=== PATIENT | male | born 1975 | race American Indian/Alaskan Native ===

== ENCOUNTER 2022-02-21 19:57 | Inpatient (IN) | payer MEDICARE ==
[2022-02-22 02:47] LABS: Basophils # (Auto) 0.1 K/mm3 (0.0-0.1); Basophils % (Auto) 0.8 % (0.0-1.8); Eosinophils # (Auto) 0.4 K/mm3 (0.0-0.4); Eosinophils % (Auto) 3.8 % (0.0-4.3); Hematocrit 38.5 % (35.5-45.6); Hemoglobin 12.7 gm/dl (11.8-15.2); Lymphocytes # (Auto) 3.7 K/mm3 (1.2-5.4); Lymphocytes % (Auto) 33.4 % (13.4-35.0); Mean Corpuscular HGB Conc 33 % (32-34); Mean Corpuscular Volume 72 fl (84-94); Monocytes # (Auto) 1.1 K/mm3 (0.0-0.8); Monocytes % (Auto) 10.1 % (0.0-7.3); Platelet Count 232 K/mm3 (140-440); Red Blood Count 5.33 M/mm3 (3.65-5.03); Red Cell Distribution Width 19.9 % (13.2-15.2)
[2022-02-22 03:05] LABS: BUN/Creatinine Ratio 9; Blood Urea Nitrogen 7 mg/dL (9-20); Calcium 8.8 mg/dL (8.4-10.2); Hemolysis Index 13
--- NOTE | 2022-02-22 03:40 | Emergency Department Report ---
ED General Adult HPI - General Chief complaint: Psych Stated complaint: MH Time Seen by Provider: 02/22/22 01:47 Source: patient Mode of arrival: Ambulatory Limitations: No Limitations - History of Present Illness Initial comments: Patient presents with complaints of suicidal thoughts. Denies visual and auditory hallucinations. Patient is legally natalio. Patient has a hx of depression. Denies CP, SOB, palpitations, diaphoresis. - Related Data Allergies Allergy/AdvReac Type Severity Reaction Status Date / Time No Known Allergies Allergy Unverified 02/22/22 01:31 ED Review of Systems ROS: Stated complaint: MH Other details as noted in HPI Comment: All other systems reviewed and negative Constitutional: denies: chills, fever ED Past Medical Hx - Past Medical History Previous Medical History?: Yes Additional medical history: Legally blind - Social History Smoking Status: Current Every Day Smoker Substance Use Type: Alcohol, Cocaine ED Physical Exam - General Limitations: No Limitations General appearance: alert, in no apparent distress - Head Head exam: Present: atraumatic, normocephalic - Eye Eye exam: Present: EOMI. Absent: scleral icterus - ENT ENT exam: Present: mucous membranes moist, other (airway patent) - Neck Neck exam: Present: other (supple; no JVD) - Respiratory Respiratory exam: Present: other (good air entry, nml I:E, CTAB, no use of NADYA) - Cardiovascular Cardiovascular Exam: Present: regular rate. Absent: rubs, gallop - GI/Abdominal GI/Abdominal exam: Present: soft, normal bowel sounds. Absent: distended, tenderness - Extremities Exam Extremities exam: Present: full ROM. Absent: tenderness - Back Exam Back exam: Present: full ROM. Absent: tenderness - Neurological Exam Neurological exam: Present: alert, oriented X3, other (no gross CN palsies other than blindness). Absent: motor sensory deficit - Psychiatric Psychiatric exam: Present: flat affect, suicidal ideation. Absent: homicidal ideation - Skin Skin exam: Present: warm, normal color ED Medical Decision Making - Lab Data Result diagrams: 02/22/22 02:28 02/22/22 02:28 Laboratory Tests 02/22/22 02/22/22 02/22/22 02:28 02:28 02:28 WBC 11.0 RBC 5.33 H Hgb 12.7 Hct 38.5 MCV 72 L MCH 24 L MCHC 33 RDW 19.9 H Plt Count 232 Lymph % (Auto) 33.4 [place] % (Auto) 10.1 H Eos % (Auto) 3.8 Baso % (Auto) 0.8 Lymph # (Auto) 3.7 [place] # (Auto) 1.1 H Eos # (Auto) 0.4 Baso # (Auto) 0.1 Seg Neutrophils % 51.9 Seg Neutrophils # 5.7 Sodium 138 Potassium 3.3 L Chloride 98.0 Carbon Dioxide 21 L Anion Gap 22 BUN 7 L Creatinine 0.8 Estimated GFR > 60 BUN/Creatinine Ratio 9 Glucose 94 Calcium 8.8 Salicylates < 0.3 L Acetaminophen Plasma/Serum Alcohol 02/22/22 02/22/22 02:28 02:28 WBC RBC Hgb Hct MCV MCH MCHC RDW Plt Count Lymph % (Auto) [place] % (Auto) Eos % (Auto) Baso % (Auto) Lymph # (Auto) [place] # (Auto) Eos # (Auto) Baso # (Auto) Seg Neutrophils % Seg Neutrophils # Sodium Potassium Chloride Carbon Dioxide Anion Gap BUN Creatinine Estimated GFR BUN/Creatinine Ratio Glucose Calcium Salicylates Acetaminophen 5.0 L Plasma/Serum Alcohol 0.13 H LFTs, UA and U tox pending - Medical Decision Making 1013 signed. MH consulted. Critical care attestation.: If time is entered above; I have spent that time in minutes in the direct care of this critically ill patient, excluding procedure time. ED Disposition Clinical Impression: Suicidal thoughts Disposition: 30 STILL A PATIENT Is pt being admited?: No Does the pt Need Aspirin: No Condition: Stable Time of Disposition: 06:00 (Patient care transferred to Dr. Cortés (oncoming ER doc). Sign out was given by me to him. )
[2022-02-22 05:02] LABS: Alanine Aminotransferase 28 units/L (7-56); Albumin 4.4 g/dL (3.9-5)
[2022-02-22 05:13] LABS: Bilirubin,Direct < 0.2 mg/dL (0-0.2)
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
--- NOTE | 2022-02-22 11:56 | Event Note ---
Date: 02/22/22 Treatment Plan 1013 Olanzapine 5mg po BID Trazodone 50mg po QHs Sitter: Defer to primary Medical: Per primary Disposition: Recommend acute psychiatric inpatient treatment Will follow. Thank you for this consult. Case staffed with Dr. Tavera I have seen the patient myself and patient remains hemodynamically stable and afebrile. Came in with concern of suicidal ideation and auditory hallucination with commands telling him to kill himself. Appreciate psych evaluation's recommendation. - [place]
[2022-02-22] MEDS: traZODone 50 MG TAB PO SCH (22:26)
--- NOTE | 2022-02-23 10:07 | Progress Note ---
Subjective - Reason for Consult Consult date: 02/23/22 Reason for consult: suicidal ideation - Chief Complaint Chief complaint: The patient was seen this morning. He continues to endorse depression and suicidal ideation with no plan. The patient continues to have auditory hallucinations with voices telling him to kill himself. REVIEW OF SYSTEMS Constitutional: Negative for weight loss ENT: Negative for stridor Respiratory: Negative for cough or hemoptysis All other systems reviewed and are negative MENTAL STATUS EXAMINATION General Appearance: Dressed appropriately, Behavior: calm and cooperative, odd Mood: depressed Affect and affective range: congruent with mood Thought Process: Goal directed Thought content:Suicidal Speech: Normal Suicidal Ideation: Yes Homicidal Ideation: Denies Hallucinations: Auditory Delusions:None Insight and Judgment:Limited insight and judgment Memory: Limited Attention: Distracted Orientation: Alert, oriented Assessment Schizophrenia Treatment Plan 1013 Olanzapine 5mg po BID Start Sertraline 25mg po Daily Trazodone 50mg po QHs Sitter: Defer to primary Medical: Per primary Disposition: Recommend acute psychiatric inpatient treatment Will follow. Thank you for this consult. Case staffed with Dr. Tavera Medications and Allergies Mental Status Exam - Vital signs Last Vital Signs Temp 98.0 F 02/22/22 19:50 Pulse 73 02/22/22 19:50 Resp 16 02/22/22 19:50 BP 174/112 02/22/22 19:50 Pulse Ox 94 02/22/22 19:50
--- NOTE | 2022-02-23 11:42 | Emergency Department Report ---
Blank Doc - Documentation Documentation: S: No events reported overnight O: Vital Signs - 24 hr 02/22/22 02/22/22 02/23/22 19:30 19:50 04:00 Temperature 98.0 F 98.7 F Pulse Rate 73 82 Respiratory 16 18 Rate Blood Pressure 174/112 146/87 [Left] O2 Sat by Pulse 100 94 100 Oximetry 02/23/22 09:30 Temperature 97.5 F L Pulse Rate 78 Respiratory 18 Rate Blood Pressure 139/86 [Left] O2 Sat by Pulse 99 Oximetry A: Schizophrenia P: 1013/awaiting inpatient psych
[2022-02-23] MEDS: SERTRALINE 25 MG TAB PO SCH (13:14)
[2022-02-23 16:17] LABS: Bilirubin,Urine NEG (Negative); Blood,Urine MOD (Negative); Color,Urine Yellow (Yellow)
[2022-02-23 16:18] LABS: Amphetamine Screen,Urine Negative; Benzodiazepines Screen,Urine Negative; Methadone Screen,Urine Negative; Opiate Screen,Urine Negative
[2022-02-23 16:29] LABS: Cannabinoid Screen,Urine Positive; Cocaine Screen,Urine Positive
[2022-02-23] MEDS ORDERED: ALBUTEROL 2.5 MG/3 ML NEBU IH ONE ×2 (17:06→19:31)
[2022-02-23] MEDS ORDERED: IPRATROPIUM 0.02% NEBU 2.5 ML IH ONE ×2 (17:06→19:31)
[2022-02-23] MEDS ORDERED: predniSONE 20 MG TAB PO ONE (17:06)
[2022-02-23] MEDS ORDERED: ALBUTEROL 2.5 MG/3 ML NEBU IH PRN ×2 (17:09→21:32)
[2022-02-23] MEDS ORDERED: IPRATROPIUM 0.02% NEBU 2.5 ML IH PRN (17:09)
[2022-02-23] MEDS: amLODIPine 5 MG TAB PO SCH (19:31)
[2022-02-23] MEDS ORDERED: NITROGLYCERIN 2% OINT 1 GM TP ONE (19:32)
[2022-02-23] MEDS ORDERED: ASPIRIN 325 MG TAB PO ONE (19:32)
[2022-02-23] MEDS ORDERED: ONDANSETRON 4 MG/2 ML INJ IV ONE (19:32)
[2022-02-23] MEDS ORDERED: fentaNYL 100 MCG/2 ML INJ IV ONE (19:32)
[2022-02-23] MEDS ORDERED: MAGNESIUM SULFATE 2 GM/50 ML BAG IV ONE (19:46)
--- NOTE | 2022-02-23 20:27 | XRay Report ---
CHEST 1 VIEW INDICATION / CLINICAL INFORMATION: chest pain, shortness of breath. COMPARISON: None available. FINDINGS: SUPPORT DEVICES: None. HEART / MEDIASTINUM: No significant abnormality. LUNGS / PLEURA: Mild prominence of interstitial markings bilaterally. The appearance could be indicat paty of chronic interstitial lung disease or mild interstitial pulmonary edema. Unfortunately there ar e no prior chest radiographs for comparison. No focal area of consolidation to suggest pneumonia. No pleural effusion. No pneumothorax. ADDITIONAL FINDINGS: No significant additional findings. IMPRESSION: 1. Mild interstitial prominence bilaterally. Differential diagnosis includes mild interstitial pulmon miky edema versus mild chronic interstitial lung disease. Signer Name: Shanice Valdez MD Signed: 02/23/2022 8:22 PM Workstation Name: [id number]
[2022-02-23 21:02] LABS: Creatine Kinase MB 1.3 ng/mL (0.0-4.0)
[2022-02-23] MEDS ORDERED: ONDANSETRON 4 MG/2 ML INJ IV PRN (21:32)
[2022-02-23] MEDS ORDERED: NITROGLYCERIN 0.4 MG TAB SUBL SL PRN (21:32)
[2022-02-23] MEDS ORDERED: ACETAMINOPHEN 325 MG TAB PO PRN ×2 (21:32)
--- NOTE | 2022-02-23 21:40 | History and Physical Report ---
History of Present Illness Date of examination: 02/23/22 Date of admission: 02/23/22 Chief complaint: Suicidal ideation Chest pain Shortness of breath History of present illness: 46 year old male with history of COPD, asthma, schizophrenia who presents to the ED with suicidal ideation. The patient is calm, alert and oriented x3. He reports having suicidal ideation " I am tired and I want to , I lost everything." The patient also admits having commanding auditory hallucinations " voices saying kill yourself." Patient is seen and evaluated by psych in the [facility] room. Patient wheezing in all scott SPO2 100% on room air. Nebulizer ordered (albuterol 10 mg/Atrovent 1 mg) in addition to prednisone 60 mg p.o. Patient began to complain of substernal chest pain in addition to shortness of breath. Wheezing recalcitrant to initial neb. Second neb ordered EKG shows normal sinus rhythm with T wave inversion in lead aVL. Cardiac enzymes ordered and patient admitted to the hospitalist for observation. Past History Past Medical History: COPD, other (Schizophrenia, asthma) Medications and Allergies Allergies Allergy/AdvReac Type Severity Reaction Status Date / Time No Known Allergies Allergy Unverified 02/22/22 01:31 Home Medications Medication Instructions Recorded Confirmed Last Taken Type Amlodipine Besylate [Norvasc] 10 mg PO DAILY 02/23/22 02/23/22 Unknown History Active Meds: Active Medications Albuterol (Albuterol 2.5 Mg/3 Ml Nebu) 5 mg IH Q4H PRN PRN Reason: Wheezing Amlodipine Besylate (Amlodipine 5 Mg Tab) 10 mg PO DAILY [facility] Last Admin: 02/23/22 19:31 Dose: 10 mg Ipratropium [place] (Ipratropium 0.02% Nebu 2.5 Ml) 0.5 mg IH Q4H PRN PRN Reason: Wheezing Olanzapine (Olanzapine 5 Mg Tab) 5 mg PO BID [facility] Last Admin: 02/23/22 10:36 Dose: 5 mg Sertraline HCl (Sertraline 25 Mg Tab) 25 mg PO DAILY [facility] Last Admin: 02/23/22 13:14 Dose: 25 mg Trazodone HCl (Trazodone 50 Mg Tab) 50 mg PO QHS [facility] Last Admin: 02/22/22 22:26 Dose: 50 mg Review of Systems All systems: negative Constitutional: other (Suicidal ideation) Respiratory: shortness of breath, dyspnea on exertion, wheezing Exam - Constitutional Vitals: Temp Pulse Resp BP Pulse Ox 97.5 F L 95 H 19 167/100 99 02/23/22 09:30 02/23/22 19:51 02/23/22 19:51 02/23/22 19:31 02/23/22 19:27 General appearance: Present: no acute distress, well-nourished - EENT Eyes: Present: PERRL ENT: hearing intact, clear oral mucosa - Neck Neck: Present: supple, normal ROM - Respiratory Respiratory effort: normal Respiratory: bilateral: wheezing - Cardiovascular Heart Sounds: Present: S1 & S2. Absent: rub, click - Extremities Extremities: pulses symmetrical, No edema Peripheral Pulses: within normal limits - Abdominal General gastrointestinal: Present: soft, non-tender, non-distended, normal bowel sounds Male genitourinary: Present: normal - Integumentary Integumentary: Present: clear, warm, dry - Musculoskeletal Musculoskeletal: gait normal, strength equal bilaterally - Psychiatric Psychiatric: appropriate mood/affect, intact judgment & insight - Neurologic Neurologic: CNII-XII intact, moves all extremities HEART Score - HEART Score Troponin: Troponin T < 0.010 ng/mL (0.00-0.029) 02/23/22 20:26 Results - Labs CBC & Chem 7: 02/22/22 02:28 02/22/22 02:28 Labs: Laboratory Last Values WBC 11.0 K/mm3 (4.5-11.0) 02/22/22 02:28 RBC 5.33 M/mm3 (3.65-5.03) H 02/22/22 02:28 Hgb 12.7 gm/dl (11.8-15.2) 02/22/22 02:28 Hct 38.5 % (35.5-45.6) 02/22/22 02:28 MCV 72 fl (84-94) L 02/22/22 02:28 MCH 24 pg (28-32) L 02/22/22 02:28 MCHC 33 % (32-34) 02/22/22 02:28 RDW 19.9 % (13.2-15.2) H 02/22/22 02:28 Plt Count 232 K/mm3 (140-440) 02/22/22 02:28 Lymph % (Auto) 33.4 % (13.4-35.0) 02/22/22 02:28 [place] % (Auto) 10.1 % (0.0-7.3) H 02/22/22 02:28 Eos % (Auto) 3.8 % (0.0-4.3) 02/22/22 02:28 Baso % (Auto) 0.8 % (0.0-1.8) 02/22/22 02:28 Lymph # (Auto) 3.7 K/mm3 (1.2-5.4) 02/22/22 02:28 [place] # (Auto) 1.1 K/mm3 (0.0-0.8) H 02/22/22 02:28 Eos # (Auto) 0.4 K/mm3 (0.0-0.4) 02/22/22 02:28 Baso # (Auto) 0.1 K/mm3 (0.0-0.1) 02/22/22 02:28 Seg Neutrophils % 51.9 % (40.0-70.0) 02/22/22 02:28 Seg Neutrophils # 5.7 K/mm3 (1.8-7.7) 02/22/22 02:28 Sodium 138 mmol/L (137-145) 02/22/22 02:28 Potassium 3.3 mmol/L (3.6-5.0) L 02/22/22 02:28 Chloride 98.0 mmol/L (98-107) 02/22/22 02:28 Carbon Dioxide 21 mmol/L (22-30) L 02/22/22 02:28 Anion Gap 22 mmol/L 02/22/22 02:28 BUN 7 mg/dL (9-20) L 02/22/22 02:28 Creatinine 0.8 mg/dL (0.8-1.3) 02/22/22 02:28 Estimated GFR > 60 ml/min 02/22/22 02:28 BUN/Creatinine Ratio 9 % 02/22/22 02:28 Glucose 94 mg/dL (75-100) 02/22/22 02:28 Calcium 8.8 mg/dL (8.4-10.2) 02/22/22 02:28 Total Bilirubin 0.30 mg/dL (0.1-1.2) 02/22/22 04:26 Direct Bilirubin < 0.2 mg/dL (0-0.2) 02/22/22 04:26 Indirect Bilirubin 0.1 mg/dL 02/22/22 04:26 AST 29 units/L (5-40) 02/22/22 04:26 ALT 28 units/L (7-56) 02/22/22 04:26 Alkaline Phosphatase 87 units/L (35-129) 02/22/22 04:26 Total Creatine Kinase 179 units/L (55-170) H 02/23/22 20:26 CK-MB (CK-2) 1.3 ng/mL (0.0-4.0) 02/23/22 20: CK-MB (CK-2) Rel Index 0.7 (0-4) 02/23/22 20: Troponin T < 0.010 ng/mL (0.00-0.029) 02/23/22 20:26 NT-Pro-B Natriuret Pep 163.6 pg/mL (0-450) 02/23/22 20:26 Total Protein 6.7 g/dL (6.3-8.2) 02/22/22 04:26 Albumin 4.4 g/dL (3.9-5) 02/22/22 04:26 Albumin/Globulin Ratio 1.9 % 02/22/22 04:26 Urine Color Yellow (Yellow) 02/23/22 Unknown Urine Turbidity Clear (Clear) 02/23/22 Unknown Urine pH 7.0 (5.0-7.0) 02/23/22 Unknown Ur Specific [place] 1.015 (1.003-1.030) 02/23/22 Unknown Urine Protein 100 mg/dl mg/dL (Negative) 02/23/22 Unknown Urine Glucose (UA) Neg mg/dL (Negative) 02/23/22 Unknown Urine Ketones 80 mg/dL (Negative) 02/23/22 Unknown Urine Blood Mod (Negative) 02/23/22 Unknown Urine Nitrite Neg (Negative) 02/23/22 Unknown Urine Bilirubin Neg (Negative) 02/23/22 Unknown Urine Urobilinogen 4.0 mg/dL (<2.0) 02/23/22 Unknown Ur Leukocyte Esterase Neg (Negative) 02/23/22 Unknown Urine WBC (Auto) 1.0 /HPF (0.0-6.0) 02/23/22 Unknown Urine RBC (Auto) 16.0 /HPF (0.0-6.0) 02/23/22 Unknown U Epithel Cells (Auto) < 1.0 /HPF (0-13.0) 02/23/22 Unknown Salicylates < 0.3 mg/dL (2.8-20.0) L 02/22/22 02:28 Urine Opiates Screen Negative 02/23/22 Unknown Urine Methadone Screen Negative 02/23/22 Unknown Acetaminophen 5.0 ug/mL (10.0-30.0) L 02/22/22 02:28 Ur Barbiturates Screen Negative 02/23/22 Unknown Ur Phencyclidine Scrn Negative 02/23/22 Unknown Ur Amphetamines Screen Negative 02/23/22 Unknown U Benzodiazepines Scrn Negative 02/23/22 Unknown Urine Cocaine Screen Positive 02/23/22 Unknown U Marijuana (THC) Screen Positive 02/23/22 Unknown Drugs of Abuse Note Disclamer 02/23/22 Unknown Plasma/Serum Alcohol 0.13 % (0-0.07) H 02/22/22 02:28 - Imaging and Cardiology Chest x-ray: report reviewed Assessment and Plan VTE prophylaxis?: Chemical Plan of care discussed with patient/family: Yes - Patient Problems (1) ACS (acute coronary syndrome) Current Visit: Yes Status: Acute Plan to address problem: Admit the patient to the medical telemetry. Aspirin 325 mg p.o. daily. Lipitor 40 mg p.o. daily. Sublingual nitroglycerin as needed. We do the serial cardiac enzymes. We also do a Lexiscan. Consult cardiology if needed (2) COPD with exacerbation Current Visit: Yes Status: Acute Plan to address problem: Oxygen by nasal cannula 3 L/min. DuoNeb by nebulizer every 4 hours. Albuterol via nebulizer every 4 hours as needed. Patient already get prednisone. (3) Schizophrenia Current Visit: Yes Status: Acute Plan to address problem: Patient already seen and evaluated by psych. Will consult inpatient psych to see the patient (4) Marijuana abuse Current Visit: Yes Status: Acute Plan to address problem: Patient counseled regarding quit taking marijuana. (5) Suicidal thoughts Current Visit: Yes Status: Acute Plan to address problem: Patient already seen and evaluated by psych in the emergency room. We also consult inpatient psych for evaluation (6) DVT prophylaxis Current Visit: Yes Status: Acute Plan to address problem: Heparin 5000 units subcu every 12 hours for DVT prophylaxis Pepcid 20 mg p.o. twice daily for GI prophylaxis. Patient is a full code
[2022-02-23 22:26] LABS: Hematocrit 38.6 % (35.5-45.6); Hemoglobin 12.5 gm/dl (11.8-15.2); Mean Corpuscular HGB Conc 32 % (32-34); Mean Corpuscular Volume 72 fl (84-94); Red Blood Count 5.33 M/mm3 (3.65-5.03); Red Cell Distribution Width 19.9 % (13.2-15.2)
[2022-02-23 22:27] LABS: Blood Urea Nitrogen 6 mg/dL (9-20); Hemolysis Index 112
[2022-02-23 22:28] LABS: BUN/Creatinine Ratio 9; Platelet Count 211 K/mm3 (140-440)
[2022-02-23 23:39] LABS: Anisocytosis Few; Basophils % (Manual) 0 % (0.0-1.8); Eosinophils % (Manual) 0 % (0.0-4.3); Hypochromasia 1+; Total Cells Counted 100
[2022-02-24] MEDS: traZODone 50 MG TAB PO SCH
[2022-02-24] MEDS: IPRATROPIUM/ALBUTEROL SULFATE 3 ML AMPUL.NEB IH SCH ×4 (04:25→20:40)
[2022-02-24 06:19] LABS: Basophils % (Auto) 0.5 % (0.0-1.8); Eosinophils % (Auto) 0.1 % (0.0-4.3); Hematocrit 38.2 % (35.5-45.6); Hemoglobin 12.6 gm/dl (11.8-15.2); Lymphocytes % (Auto) 16.2 % (13.4-35.0); Mean Corpuscular HGB Conc 33 % (32-34); Mean Corpuscular Volume 72 fl (84-94); Monocytes # (Auto) 0.7 K/mm3 (0.0-0.8); Monocytes % (Auto) 11.2 % (0.0-7.3); Platelet Count 218 K/mm3 (140-440); Red Blood Count 5.32 M/mm3 (3.65-5.03); Red Cell Distribution Width 19.5 % (13.2-15.2)
[2022-02-24 06:42] LABS: BUN/Creatinine Ratio 8; Blood Urea Nitrogen 5 mg/dL (9-20); Calcium 9.1 mg/dL (8.4-10.2); Hemolysis Index 3
[2022-02-24] MEDS ORDERED: REGADENOSON 0.4 MG/5 ML INJ IV ONE (07:00)
[2022-02-24] MEDS ORDERED: BUDESONIDE 0.5 MG/2 ML NEBU IH SCH (09:00)
[2022-02-24] MEDS: ASPIRIN EC 325 MG TAB PO SCH (10:22)
[2022-02-24] MEDS: SERTRALINE 25 MG TAB PO SCH (10:23)
[2022-02-24] MEDS: FAMOTIDINE 20 MG TAB PO SCH ×3 (10:23→21:38)
[2022-02-24] MEDS: traMADol 50 MG TAB PO PRN (10:23)
[2022-02-24] MEDS: amLODIPine 5 MG TAB PO SCH (10:23)
[2022-02-24] MEDS: HEPARIN 5,000 UNIT/1 ML VIAL SUB-Q SCH ×3 (10:27→21:39)
--- NOTE | 2022-02-24 12:02 | Progress Note ---
Subjective - Reason for Consult Consult date: 02/24/22 Reason for consult: suicidal - Chief Complaint Chief complaint: The patient was seen today. He reports not doing well. He continues to endorse suicidal ideation with no plan and also having commanding auditory hallucinations " voices telling me to kill myself." REVIEW OF SYSTEMS Constitutional: Negative for weight loss ENT: Negative for stridor Respiratory: Negative for cough or hemoptysis All other systems reviewed and are negative MENTAL STATUS EXAMINATION General Appearance: Dressed appropriately, Behavior: calm and cooperative, odd Mood: depressed Affect and affective range: congruent with mood Thought Process: Goal directed Thought content:Suicidal Speech: Normal Suicidal Ideation: Yes Homicidal Ideation: Denies Hallucinations: Auditory Delusions:None Insight and Judgment:Limited insight and judgment Memory: Limited Attention: Distracted Orientation: Alert, oriented Assessment Schizophrenia Treatment Plan 1013 Start Seroquel 100mg po QHS Discontinue Olanzapine 5mg po BID Continue Sertraline 25mg po Daily Trazodone 50mg po QHS PRN Sitter: Defer to primary Medical: Per primary Disposition: Recommend acute psychiatric inpatient treatment Will follow for medication management. Thank you for this consult. Case staffed with Dr. Tavera Medications and Allergies Mental Status Exam - Vital signs Last Vital Signs Temp 97.7 F 02/24/22 03:26 Pulse 72 02/24/22 09:04 Resp 20 02/24/22 09:04 BP 166/99 02/24/22 03:26 Pulse Ox 98 02/24/22 09:49
[2022-02-24] MEDS: MORPHINE 2 MG/1 ML INJ IV PRN ×2 (12:20→15:53)
--- NOTE | 2022-02-24 12:29 | Electrocardiograph Report ---
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
--- NOTE | 2022-02-24 12:42 | Electrocardiograph Report ---
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 Electronically Signed On 02-24-2022 12:42:23 EDT by Marcello Daniel
[2022-02-24] MEDS ORDERED: IPRATROPIUM/ALBUTEROL SULFATE 3 ML AMPUL.NEB IH PRN (15:14)
--- NOTE | 2022-02-24 15:36 | Progress Note ---
Assessment and Plan - Patient Problems (1) COPD with exacerbation Current Visit: Yes Status: Acute Plan to address problem: Patient initiated on IV Solu-Medrol, DuoNeb and IV antibiotics BiPAP as necessary Intubation if necessary (2) Schizophrenia Current Visit: Yes Status: Chronic Qualifiers: Schizophrenia type: unspecified Qualified Code(s): F20.9 - Schizophrenia, unspecified Plan to address problem: Continue antipsychotics as per mental health/psychiatry (3) Suicidal thoughts Current Visit: Yes Status: Acute Plan to address problem: Not active at present (4) Marijuana abuse Current Visit: Yes Status: Chronic Plan to address problem: Patient counseled about marijuana use and its disadvantages (5) DVT prophylaxis Current Visit: Yes Status: Acute Plan to address problem: On anticoagulation GI prophylaxis (6) Advance care planning Current Visit: Yes Status: Acute Plan to address problem: Disease education conducted, care plan discussed, diagnosis discussed, prognosis discussed. Patient acknowledges understanding and agrees with care plan. +30 minutes. Subjective Date of service: 02/24/22 Principal diagnosis: COPD exacerbation, atypical chest pain Interval history: 46 year old male with history of COPD, asthma, schizophrenia who presents to the ED with suicidal ideation. The patient is calm, alert and oriented x3. He reports having suicidal ideation " I am tired and I want to , I lost everything." The patient also admits having commanding auditory hallucinations " voices saying kill yourself." Patient is seen and evaluated by psych in the emergency room. Patient wheezing in all scott SPO2 100% on room air. Nebulizer ordered (albuterol 10 mg/Atrovent 1 mg) in addition to prednisone 60 mg p.o. Patient began to complain of substernal chest pain in addition to shortness of breath. Wheezing recalcitrant to initial neb. Second neb ordered EKG shows normal sinus rhythm with T wave inversion in lead aVL. Cardiac enzymes ordered and patient admitted to the hospitalist for observation. 02/24/2022 Patient extremely short of breath and wheezing Using accessory muscles of respiration Patient initiated on duo nebs, IV Solu-Medrol and IV antibiotics Objective - Constitutional Vitals: Vital Signs - 12hr 02/24/22 02/24/22 02/24/22 04:00 08:37 08:41 Temperature Pulse Rate Pulse Rate [ 66 Bilateral] Respiratory 18 Rate Respiratory 20 Rate [Bilateral ] Blood Pressure O2 Sat by Pulse 95 99 Oximetry 02/24/22 02/24/22 02/24/22 09:04 09:49 10:48 Temperature 98.0 F Pulse Rate 71 Pulse Rate [ 72 Bilateral] Respiratory 18 Rate Respiratory 20 Rate [Bilateral ] Blood Pressure 140/72 O2 Sat by Pulse 98 96 Oximetry 02/24/22 14:21 Temperature Pulse Rate Pulse Rate [ 80 Bilateral] Respiratory Rate Respiratory 20 Rate [Bilateral ] Blood Pressure O2 Sat by Pulse Oximetry General appearance: Present: mild distress, well-nourished - EENT Eyes: PERRL, EOM intact ENT: hearing intact, clear oral mucosa Ears: bilateral: normal - Neck Neck: supple, normal ROM - Respiratory Respiratory effort: normal Respiratory: bilateral: CTA, rhonchi, wheezing - Breasts Breasts: normal - Cardiovascular Heart rate: 78 Rhythm: regular Heart Sounds: Present: S1 & S2. Absent: gallop, rub Extremities: pulses intact, No edema, normal color, Full ROM - Gastrointestinal General gastrointestinal: Present: soft, non-tender, non-distended, normal bowel sounds Rectal Exam: deferred - Genitourinary Male genitourinary: normal - Integumentary Integumentary: clear, warm, dry - Musculoskeletal Musculoskeletal: 1, strength equal bilaterally - Neurologic Neurologic: moves all extremities - Psychiatric Psychiatric: memory intact, appropriate mood/affect, intact judgment & insight - Labs CBC & Chem 7: 02/24/22 05:58 02/24/22 05:58 Labs: Abnormal lab results 02/23/22 02/23/22 02/23/22 Range/Units 20:26 21:43 21:43 WBC 11.5 H (4.5-11.0) K/mm3 RBC 5.33 H (3.65-5.03) M/mm3 MCV 72 L (84-94) fl MCH 24 L (28-32) pg RDW 19.9 H (13.2-15.2) % Mccracken % (Auto) (0.0-7.3) % Lymph # (Auto) (1.2-5.4) K/mm3 Seg Neutrophils % (40.0-70.0) % Seg Neuts % (Manual) 88.0 H (40.0-70.0) % Lymphocytes % (Manual) 8.0 L (13.4-35.0) % Seg Neutrophils # Man 10.1 H (1.8-7.7) K/mm3 Lymphocytes # (Manual) 0.9 L (1.2-5.4) K/mm3 Carbon Dioxide 21 L (22-30) mmol/L BUN 6 L (9-20) mg/dL Creatinine 0.7 L (0.8-1.3) mg/dL Glucose 171 H (75-100) mg/dL Total Creatine Kinase 179 H (55-170) units/L 02/24/22 02/24/22 Range/Units 05:58 05:58 WBC (4.5-11.0) K/mm3 RBC 5.32 H (3.65-5.03) M/mm3 MCV 72 L (84-94) fl MCH 24 L (28-32) pg RDW 19.5 H (13.2-15.2) % Mccracken % (Auto) 11.2 H (0.0-7.3) % Lymph # (Auto) 1.0 L (1.2-5.4) K/mm3 Seg Neutrophils % 72.0 H (40.0-70.0) % Seg Neuts % (Manual) (40.0-70.0) % Lymphocytes % (Manual) (13.4-35.0) % Seg Neutrophils # Man (1.8-7.7) K/mm3 Lymphocytes # (Manual) (1.2-5.4) K/mm3 Carbon Dioxide (22-30) mmol/L BUN 5 L (9-20) mg/dL Creatinine 0.6 L (0.8-1.3) mg/dL Glucose 166 H (75-100) mg/dL Total Creatine Kinase (55-170) units/L HEART Score - HEART Score Troponin: Troponin T < 0.010 ng/mL (0.00-0.029) 02/23/22 20:26
[2022-02-24] MEDS: methylPREDNISolone Sod Succinate 125 MG/2 ML INJ IV SCH ×2 (15:53→21:36)
[2022-02-24] MEDS ORDERED: IPRATROPIUM/ALBUTEROL SULFATE 3 ML AMPUL.NEB IH SCH (16:00)
[2022-02-24] MEDS ORDERED: ALBUTEROL 2.5 MG/3 ML NEBU IH PRN (16:19)
[2022-02-24 17:55] LABS: Creatine Kinase MB 1.6 ng/mL (0.0-4.0)
[2022-02-24] MEDS: BUDESONIDE 0.5 MG/2 ML NEBU IH SCH (20:40)
[2022-02-24] MEDS: ARFORMOTEROL 15 MCG/2 ML NEBU IH SCH (20:40)
[2022-02-24] MEDS ORDERED: traZODone 50 MG TAB PO PRN (21:00)
[2022-02-24] MEDS ORDERED: MORPHINE 4 MG/1 ML INJ IV ONE (21:30)
[2022-02-24] MEDS: QUEtiapine 100 MG TAB PO SCH (22:48)
[2022-02-24] MEDS ORDERED: methylPREDNISolone Sod Succinate 125 MG/2 ML INJ IV SCH (23:08)
[2022-02-25] MEDS: IPRATROPIUM/ALBUTEROL SULFATE 3 ML AMPUL.NEB IH SCH ×6 (00:15→19:44)
[2022-02-25 01:01] LABS: Creatine Kinase MB 1.6 ng/mL (0.0-4.0)
[2022-02-25] MEDS: HYDROmorphone 1 MG/1 ML INJ IV PRN (03:06)
[2022-02-25] MEDS: methylPREDNISolone Sod Succinate 125 MG/2 ML INJ IV SCH ×3 (05:54→21:23)
[2022-02-25 06:14] LABS: Creatine Kinase MB 1.4 ng/mL (0.0-4.0)
[2022-02-25] MEDS: ARFORMOTEROL 15 MCG/2 ML NEBU IH SCH ×2 (08:28→19:44)
[2022-02-25] MEDS: BUDESONIDE 0.5 MG/2 ML NEBU IH SCH ×2 (08:29→19:45)
[2022-02-25] MEDS: MORPHINE 2 MG/1 ML INJ IV PRN ×4 (08:43→20:47)
[2022-02-25] MEDS: SERTRALINE 25 MG TAB PO SCH (10:00)
[2022-02-25] MEDS: amLODIPine 5 MG TAB PO SCH (10:00)
[2022-02-25] MEDS: FAMOTIDINE 20 MG TAB PO SCH ×2 (10:00→21:23)
[2022-02-25] MEDS: ASPIRIN EC 325 MG TAB PO SCH (10:00)
[2022-02-25] MEDS: HEPARIN 5,000 UNIT/1 ML VIAL SUB-Q SCH ×2 (10:03→21:23)
[2022-02-25] MEDS: traMADol 50 MG TAB PO PRN (11:28)
[2022-02-25] MEDS ORDERED: hydrALAZINE 20 MG/1 ML INJ IV PRN (12:16)
[2022-02-25] MEDS: VALSARTAN 160MG TAB PO SCH ×2 (12:26→21:22)
[2022-02-25] MEDS: guaiFENesin 100 MG/5 ML ORAL LIQD PO PRN (12:30)
[2022-02-25] MEDS: hydrALAZINE 20 MG/1 ML INJ IV PRN (13:50)
[2022-02-25] MEDS ORDERED: hydrALAZINE 20 MG/1 ML INJ IV SCH (14:00)
--- NOTE | 2022-02-25 14:11 | Progress Note ---
Assessment and Plan - Patient Problems (1) COPD with exacerbation Current Visit: Yes Status: Acute Plan to address problem: Patient initiated on IV Solu-Medrol, DuoNeb and IV antibiotics BiPAP as necessary Intubation if necessary (2) Chest pain, atypical Current Visit: Yes Status: Acute Plan to address problem: Musculoskeletal Troponins and CK MB enzymes are negative Lexiscan not to be done Follow-up with PCP as outpatient and cardiology follow-up if necessary (3) Schizophrenia Current Visit: Yes Status: Chronic Qualifiers: Schizophrenia type: unspecified Qualified Code(s): F20.9 - Schizophrenia, unspecified Plan to address problem: Continue antipsychotics as per mental health/psychiatry (4) Suicidal thoughts Current Visit: Yes Status: Acute Plan to address problem: Not active at present (5) Marijuana abuse Current Visit: Yes Status: Chronic Plan to address problem: Patient counseled about marijuana use and its disadvantages (6) DVT prophylaxis Current Visit: Yes Status: Acute Plan to address problem: On anticoagulation GI prophylaxis (7) Advance care planning Current Visit: Yes Status: Acute Plan to address problem: Disease education conducted, care plan discussed, diagnosis discussed, prognosis discussed. Patient acknowledges understanding and agrees with care plan. +30 minutes. Subjective Date of service: 02/25/22 Principal diagnosis: COPD exacerbation, atypical chest pain Interval history: 46 year old male with history of COPD, asthma, schizophrenia who presents to the ED with suicidal ideation. The patient is calm, alert and oriented x3. He reports having suicidal ideation " I am tired and I want to , I lost everything." The patient also admits having commanding auditory hallucinations " voices saying kill yourself." Patient is seen and evaluated by psych in the emergency room. Patient wheezing in all scott SPO2 100% on room air. Nebulizer ordered (albuterol 10 mg/Atrovent 1 mg) in addition to prednisone 60 mg p.o. Patient began to complain of substernal chest pain in addition to shortness of breath. Wheezing recalcitrant to initial neb. Second neb ordered EKG shows normal sinus rhythm with T wave inversion in lead aVL. Cardiac enzymes ordered and patient admitted to the hospitalist for observation. 02/24/2022 Patient extremely short of breath and wheezing Using accessory muscles of respiration Patient initiated on duo nebs, IV Solu-Medrol and IV antibiotics 02/25/2022 Shortness of breath and wheezing is improved No chest pain No suicidal thoughts Mental health follow-up appreciated Objective - Constitutional Vitals: Vital Signs - 12hr 02/25/22 02/25/22 02/25/22 03:06 03:36 04:05 Temperature Pulse Rate Pulse Rate [ 82 Bilateral] Respiratory 19 19 Rate Respiratory 20 Rate [Bilateral ] Blood Pressure O2 Sat by Pulse Oximetry 02/25/22 02/25/22 02/25/22 04:52 08:28 08:37 Temperature 97.6 F Pulse Rate 68 Pulse Rate [ 82 Bilateral] Respiratory 20 Rate Respiratory 20 Rate [Bilateral ] Blood Pressure 151/91 O2 Sat by Pulse 94 96 Oximetry 02/25/22 02/25/22 10:00 13:12 Temperature Pulse Rate 75 Pulse Rate [ 88 Bilateral] Respiratory Rate Respiratory 22 Rate [Bilateral ] Blood Pressure 186/111 O2 Sat by Pulse Oximetry General appearance: Present: no acute distress, well-nourished - EENT Eyes: PERRL, EOM intact ENT: hearing intact, clear oral mucosa Ears: bilateral: normal - Neck Neck: supple, normal ROM - Respiratory Respiratory effort: normal Respiratory: bilateral: CTA - Breasts Breasts: normal - Cardiovascular Heart rate: 78 Rhythm: regular Heart Sounds: Present: S1 & S2. Absent: gallop, rub Extremities: pulses intact, No edema, normal color, Full ROM - Gastrointestinal General gastrointestinal: Present: soft, non-tender, non-distended, normal bowel sounds - Genitourinary Male genitourinary: normal - Integumentary Integumentary: clear, warm, dry - Musculoskeletal Musculoskeletal: 1, strength equal bilaterally - Neurologic Neurologic: moves all extremities - Psychiatric Psychiatric: memory intact, appropriate mood/affect, intact judgment & insight - Labs CBC & Chem 7: 02/24/22 05:58 02/24/22 05:58 HEART Score - HEART Score Troponin: Troponin T < 0.010 ng/mL (0.00-0.029) 02/24/22 23:41
[2022-02-25] MEDS: QUEtiapine 100 MG TAB PO SCH (21:23)
[2022-02-26] MEDS: IPRATROPIUM/ALBUTEROL SULFATE 3 ML AMPUL.NEB IH SCH ×6 (00:36→21:14)
[2022-02-26] MEDS: MORPHINE 2 MG/1 ML INJ IV PRN ×6 (00:55→20:58)
[2022-02-26] MEDS: methylPREDNISolone Sod Succinate 125 MG/2 ML INJ IV SCH ×4 (05:06→22:33)
[2022-02-26] MEDS: SERTRALINE 25 MG TAB PO SCH (09:05)
[2022-02-26] MEDS: FAMOTIDINE 20 MG TAB PO SCH ×3 (09:05→22:33)
[2022-02-26] MEDS: VALSARTAN 160MG TAB PO SCH ×3 (09:05→22:33)
[2022-02-26] MEDS: amLODIPine 5 MG TAB PO SCH (09:05)
[2022-02-26] MEDS: HEPARIN 5,000 UNIT/1 ML VIAL SUB-Q SCH ×3 (09:06→22:32)
[2022-02-26] MEDS: ASPIRIN EC 325 MG TAB PO SCH (09:09)
[2022-02-26] MEDS: ARFORMOTEROL 15 MCG/2 ML NEBU IH SCH ×2 (09:17→21:14)
[2022-02-26] MEDS: BUDESONIDE 0.5 MG/2 ML NEBU IH SCH ×2 (09:18→21:14)
[2022-02-26] MEDS: QUEtiapine 100 MG TAB PO SCH ×2 (20:57→22:33)
[2022-02-27] MEDS: MORPHINE 2 MG/1 ML INJ IV PRN ×3 (01:12→10:16)
[2022-02-27] MEDS: IPRATROPIUM/ALBUTEROL SULFATE 3 ML AMPUL.NEB IH SCH ×6 (03:13→20:35)
[2022-02-27] MEDS: methylPREDNISolone Sod Succinate 125 MG/2 ML INJ IV SCH ×3 (05:19→21:45)
--- NOTE | 2022-02-27 07:35 | Progress Note ---
Assessment and Plan - Patient Problems (1) COPD with exacerbation Current Visit: Yes Status: Acute Plan to address problem: Patient initiated on IV Solu-Medrol, DuoNeb and IV antibiotics BiPAP as necessary Intubation if necessary (2) Chest pain, atypical Current Visit: Yes Status: Acute Plan to address problem: Musculoskeletal Troponins and CK MB enzymes are negative Lexiscan not to be done Follow-up with PCP as outpatient and cardiology follow-up if necessary (3) Schizophrenia Current Visit: Yes Status: Chronic Qualifiers: Schizophrenia type: unspecified Qualified Code(s): F20.9 - Schizophrenia, unspecified Plan to address problem: Continue antipsychotics as per mental health/psychiatry (4) Suicidal thoughts Current Visit: Yes Status: Acute Plan to address problem: Not active at present (5) Marijuana abuse Current Visit: Yes Status: Chronic Plan to address problem: Patient counseled about marijuana use and its disadvantages (6) DVT prophylaxis Current Visit: Yes Status: Acute Plan to address problem: On anticoagulation GI prophylaxis (7) Advance care planning Current Visit: Yes Status: Acute Plan to address problem: Disease education conducted, care plan discussed, diagnosis discussed, prognosis discussed. Patient acknowledges understanding and agrees with care plan. +30 minutes. Subjective Date of service: 02/26/22 Principal diagnosis: COPD exacerbation, atypical chest pain Interval history: 46 year old male with history of COPD, asthma, schizophrenia who presents to the ED with suicidal ideation. The patient is calm, alert and oriented x3. He reports having suicidal ideation " I am tired and I want to , I lost everything." The patient also admits having commanding auditory hallucinations " voices saying kill yourself." Patient is seen and evaluated by psych in the emergency room. Patient wheezing in all scott SPO2 100% on room air. Nebulizer ordered (albuterol 10 mg/Atrovent 1 mg) in addition to prednisone 60 mg p.o. Patient began to complain of substernal chest pain in addition to shortness of breath. Wheezing recalcitrant to initial neb. Second neb ordered EKG shows normal sinus rhythm with T wave inversion in lead aVL. Cardiac enzymes ordered and patient admitted to the hospitalist for observation. 02/24/2022 Patient extremely short of breath and wheezing Using accessory muscles of respiration Patient initiated on duo nebs, IV Solu-Medrol and IV antibiotics 02/25/2022 Shortness of breath and wheezing is improved No chest pain No suicidal thoughts Mental health follow-up appreciated Objective - Constitutional Vitals: Vital Signs - 12hr 02/26/22 02/26/22 02/26/22 20:00 20:55 21:05 Temperature 98.2 F Pulse Rate 79 Pulse Rate [ 84 Bilateral] Respiratory 20 Rate Respiratory 17 Rate [Bilateral ] Blood Pressure 162/96 O2 Sat by Pulse 95 95 Oximetry 02/26/22 02/27/22 02/27/22 21:18 00:19 04:00 Temperature 98.3 F Pulse Rate 77 Pulse Rate [ 84 Bilateral] Respiratory 18 Rate Respiratory 17 Rate [Bilateral ] Blood Pressure 155/89 O2 Sat by Pulse 97 95 Oximetry 02/27/22 02/27/22 05:00 06:28 Temperature 97.8 F Pulse Rate 65 Pulse Rate [ Bilateral] Respiratory 18 Rate Respiratory Rate [Bilateral ] Blood Pressure 155/91 O2 Sat by Pulse 97 96 Oximetry General appearance: Present: no acute distress, well-nourished - EENT Eyes: PERRL, EOM intact ENT: hearing intact, clear oral mucosa Ears: bilateral: normal - Neck Neck: supple, normal ROM - Respiratory Respiratory effort: normal Respiratory: bilateral: CTA - Breasts Breasts: normal - Cardiovascular Rhythm: regular Heart Sounds: Present: S1 & S2. Absent: gallop, rub Extremities: pulses intact, No edema, normal color, Full ROM - Gastrointestinal General gastrointestinal: Present: soft, non-tender, non-distended, normal bowel sounds - Genitourinary Male genitourinary: normal - Integumentary Integumentary: clear, warm, dry - Musculoskeletal Musculoskeletal: 1, strength equal bilaterally - Neurologic Neurologic: moves all extremities - Psychiatric Psychiatric: memory intact, appropriate mood/affect, intact judgment & insight - Labs CBC & Chem 7: 02/24/22 05:58 02/24/22 05:58 HEART Score - HEART Score Troponin: Troponin T < 0.010 ng/mL (0.00-0.029) 02/24/22 23:41
[2022-02-27] MEDS: BUDESONIDE 0.5 MG/2 ML NEBU IH SCH ×2 (08:58→20:35)
[2022-02-27] MEDS: ARFORMOTEROL 15 MCG/2 ML NEBU IH SCH ×2 (08:58→20:35)
[2022-02-27] MEDS: HEPARIN 5,000 UNIT/1 ML VIAL SUB-Q SCH ×2 (10:29→21:38)
[2022-02-27] MEDS: VALSARTAN 160MG TAB PO SCH ×2 (10:29→21:45)
[2022-02-27] MEDS: amLODIPine 5 MG TAB PO SCH (10:29)
[2022-02-27] MEDS: ASPIRIN EC 325 MG TAB PO SCH (10:29)
[2022-02-27] MEDS: FAMOTIDINE 20 MG TAB PO SCH ×2 (10:30→21:38)
[2022-02-27] MEDS: SERTRALINE 25 MG TAB PO SCH (10:30)
[2022-02-27] MEDS ORDERED: chlordiazePOXIDE 25 MG CAP PO PRN (13:54)
--- NOTE | 2022-02-27 13:54 | Progress Note ---
Subjective - Reason for Consult Consult date: 02/27/22 Reason for consult: depression - Chief Complaint Chief complaint: The patient was seen today. He reports feeling depressed and feeling suicidal. He denies a plan. The patient says he's having a hard time dealing with the of his nephew about three months ago. He says he's hearing voices telling him to kill himself. He admits to cocaine and alcohol dependence. He says he typically drinks a 12pk daily. The patient says he's been feeling a little anxious. REVIEW OF SYSTEMS Constitutional: Negative for weight loss ENT: Negative for stridor Respiratory: Negative for cough or hemoptysis All other systems reviewed and are negative MENTAL STATUS EXAMINATION General Appearance: Dressed appropriately Behavior: calm and cooperative Mood: depressed Affect and affective range: congruent with mood Thought Process: Goal directed Thought content: Suicidal Speech: Normal Suicidal Ideation: Yes Homicidal Ideation: Denies Hallucinations: Auditory Delusions: None Insight and Judgment:Limited insight and judgment Memory: Limited Attention: Distracted Orientation: Alert, oriented Assessment Schizophrenia Substance Abuse Treatment Plan 1013 Seroquel 100mg po QHS Increase Zoloft 50mg po daily Trazodone 50mg po QHS PRN Start CIWA Sitter: Defer to primary Medical: Per primary Disposition: Recommend acute psychiatric inpatient treatment Will follow for medication management. Thank you for this consult. Case staffed with Dr. Tavera Medications and Allergies Mental Status Exam - Vital signs Last Vital Signs Temp 97.8 F 02/27/22 06:28 Pulse 92 H 02/27/22 13:34 Resp 20 02/27/22 13:34 BP 155/91 02/27/22 06:28 Pulse Ox 96 02/27/22 09:01
[2022-02-27] MEDS: HYDROmorphone 1 MG/1 ML INJ IV PRN ×2 (15:51→20:04)
[2022-02-27] MEDS: QUEtiapine 100 MG TAB PO SCH (21:37)
[2022-02-27] MEDS: LORazepam 2 MG/ML VIAL IV PRN (23:11)
[2022-02-28] MEDS: HYDROmorphone 1 MG/1 ML INJ IV PRN ×6 (00:53→20:33)
[2022-02-28] MEDS: IPRATROPIUM/ALBUTEROL SULFATE 3 ML AMPUL.NEB IH SCH ×4 (02:21→20:08)
[2022-02-28] MEDS: methylPREDNISolone Sod Succinate 125 MG/2 ML INJ IV SCH ×3 (05:15→22:05)
[2022-02-28] MEDS: ARFORMOTEROL 15 MCG/2 ML NEBU IH SCH ×2 (09:22→20:08)
[2022-02-28] MEDS: BUDESONIDE 0.5 MG/2 ML NEBU IH SCH ×2 (09:23→20:11)
[2022-02-28] MEDS: FAMOTIDINE 20 MG TAB PO SCH ×2 (09:54→22:06)
[2022-02-28] MEDS: VALSARTAN 160MG TAB PO SCH ×2 (09:54→22:05)
[2022-02-28] MEDS: ASPIRIN EC 325 MG TAB PO SCH (09:54)
[2022-02-28] MEDS: SERTRALINE 50 MG TAB PO SCH (09:54)
[2022-02-28] MEDS: amLODIPine 10 MG TAB PO SCH (09:55)
[2022-02-28] MEDS: HEPARIN 5,000 UNIT/1 ML VIAL SUB-Q SCH ×2 (09:55→22:06)
--- NOTE | 2022-02-28 11:11 | Progress Note ---
Subjective - Reason for Consult Consult date: 02/28/22 Reason for consult: SI - Chief Complaint Chief complaint: The patient was seen today. He still endorses SI, without a plan. He says he's feeling a little better but says he still feel depressed. REVIEW OF SYSTEMS Constitutional: Negative for weight loss ENT: Negative for stridor Respiratory: Negative for cough or hemoptysis All other systems reviewed and are negative MENTAL STATUS EXAMINATION General Appearance: Dressed appropriately Behavior: calm and cooperative Mood: depressed Affect and affective range: congruent with mood Thought Process: Goal directed Thought content: Suicidal Speech: Normal Suicidal Ideation: Yes Homicidal Ideation: Denies Hallucinations: Auditory Delusions: None Insight and Judgment:Limited insight and judgment Memory: Limited Attention: Distracted Orientation: Alert, oriented Assessment Schizophrenia Substance Abuse Treatment Plan 1013 Seroquel 100mg po QHS Zoloft 50mg po daily Trazodone 50mg po QHS PRN Start CIWA Sitter: Defer to primary Medical: Per primary Disposition: Recommend acute psychiatric inpatient treatment Will follow for medication management. Thank you for this consult. Case staffed with Dr. Tavera Medications and Allergies Mental Status Exam - Vital signs Last Vital Signs Temp 97.9 F 02/28/22 11:01 Pulse 80 02/28/22 11:01 Resp 20 02/28/22 11:01 BP 171/99 02/28/22 11:03 Pulse Ox 96 02/28/22 11:01
[2022-02-28] MEDS: QUEtiapine 100 MG TAB PO SCH (22:05)
[2022-02-28] MEDS: LORazepam 2 MG/ML VIAL IV PRN (22:06)
[2022-03-01] MEDS: HYDROmorphone 1 MG/1 ML INJ IV PRN ×6 (00:36→20:37)
[2022-03-01] MEDS: IPRATROPIUM/ALBUTEROL SULFATE 3 ML AMPUL.NEB IH SCH ×4 (02:25→19:47)
[2022-03-01] MEDS: methylPREDNISolone Sod Succinate 125 MG/2 ML INJ IV SCH ×3 (05:45→22:26)
[2022-03-01] MEDS: guaiFENesin 100 MG/5 ML ORAL LIQD PO PRN (05:48)
[2022-03-01] MEDS: BUDESONIDE 0.5 MG/2 ML NEBU IH SCH ×2 (08:21→19:47)
[2022-03-01] MEDS: ARFORMOTEROL 15 MCG/2 ML NEBU IH SCH ×2 (08:21→19:47)
--- NOTE | 2022-03-01 08:40 | Progress Note ---
Assessment and Plan - Patient Problems (1) COPD with exacerbation Current Visit: Yes Status: Acute Plan to address problem: Patient initiated on IV Solu-Medrol, DuoNeb and IV antibiotics BiPAP as necessary Intubation if necessary (2) Chest pain, atypical Current Visit: Yes Status: Acute Plan to address problem: Musculoskeletal Troponins and CK MB enzymes are negative Lexiscan not to be done Follow-up with PCP as outpatient and cardiology follow-up if necessary (3) Schizophrenia Current Visit: Yes Status: Chronic Qualifiers: Schizophrenia type: unspecified Qualified Code(s): F20.9 - Schizophrenia, unspecified Plan to address problem: Continue antipsychotics as per mental health/psychiatry (4) Suicidal thoughts Current Visit: Yes Status: Acute Plan to address problem: Not active at present (5) Marijuana abuse Current Visit: Yes Status: Chronic Plan to address problem: Patient counseled about marijuana use and its disadvantages (6) DVT prophylaxis Current Visit: Yes Status: Acute Plan to address problem: On anticoagulation GI prophylaxis (7) Advance care planning Current Visit: Yes Status: Acute Plan to address problem: Disease education conducted, care plan discussed, diagnosis discussed, prognosis discussed. Patient acknowledges understanding and agrees with care plan. +30 minutes. Subjective Date of service: 02/27/22 Principal diagnosis: COPD exacerbation, atypical chest pain Interval history: 46 year old male with history of COPD, asthma, schizophrenia who presents to the ED with suicidal ideation. The patient is calm, alert and oriented x3. He reports having suicidal ideation " I am tired and I want to , I lost everything." The patient also admits having commanding auditory hallucinations " voices saying kill yourself." Patient is seen and evaluated by psych in the emergency room. Patient wheezing in all scott SPO2 100% on room air. Nebulizer ordered (albuterol 10 mg/Atrovent 1 mg) in addition to prednisone 60 mg p.o. Patient began to complain of substernal chest pain in addition to shortness of breath. Wheezing recalcitrant to initial neb. Second neb ordered EKG shows normal sinus rhythm with T wave inversion in lead aVL. Cardiac enzymes ordered and patient admitted to the hospitalist for observation. 02/24/2022 Patient extremely short of breath and wheezing Using accessory muscles of respiration Patient initiated on duo nebs, IV Solu-Medrol and IV antibiotics 02/25/2022 Shortness of breath and wheezing is improved No chest pain No suicidal thoughts Mental health follow-up appreciated Objective - Constitutional Vitals: Vital Signs - 12hr 02/28/22 02/28/22 02/28/22 21:03 22:00 22:05 Pulse Rate [ Bilateral] Respiratory 18 Rate Respiratory Rate [Bilateral ] Blood Pressure 169/102 O2 Sat by Pulse 98 Oximetry 03/01/22 03/01/22 03/01/22 00:36 01:06 04:35 Pulse Rate [ Bilateral] Respiratory 20 17 20 Rate Respiratory Rate [Bilateral ] Blood Pressure O2 Sat by Pulse Oximetry 03/01/22 03/01/22 03/01/22 05:05 08:22 08:23 Pulse Rate [ 78 Bilateral] Respiratory 20 Rate Respiratory 18 Rate [Bilateral ] Blood Pressure O2 Sat by Pulse 98 Oximetry General appearance: Present: no acute distress, well-nourished - EENT Eyes: PERRL, EOM intact ENT: hearing intact, clear oral mucosa Ears: bilateral: normal - Neck Neck: supple, normal ROM - Respiratory Respiratory effort: normal Respiratory: bilateral: CTA - Breasts Breasts: normal - Cardiovascular Rhythm: regular Heart Sounds: Present: S1 & S2. Absent: gallop, rub Extremities: pulses intact, No edema, normal color, Full ROM - Gastrointestinal General gastrointestinal: Present: soft, non-tender, non-distended, normal bowel sounds - Genitourinary Male genitourinary: normal - Integumentary Integumentary: clear, warm, dry - Musculoskeletal Musculoskeletal: 1, strength equal bilaterally - Neurologic Neurologic: moves all extremities - Psychiatric Psychiatric: memory intact, appropriate mood/affect, intact judgment & insight - Labs CBC & Chem 7: 02/24/22 05:58 02/24/22 05:58 HEART Score - HEART Score Troponin: Troponin T < 0.010 ng/mL (0.00-0.029) 02/24/22 23:41
[2022-03-01] MEDS: ASPIRIN EC 325 MG TAB PO SCH (10:32)
[2022-03-01] MEDS: FAMOTIDINE 20 MG TAB PO SCH ×2 (10:33→22:26)
[2022-03-01] MEDS: SERTRALINE 50 MG TAB PO SCH ×2 (10:33→14:26)
[2022-03-01] MEDS: VALSARTAN 160MG TAB PO SCH ×2 (10:33→22:32)
[2022-03-01] MEDS: HEPARIN 5,000 UNIT/1 ML VIAL SUB-Q SCH ×2 (10:33→22:27)
[2022-03-01] MEDS: amLODIPine 10 MG TAB PO SCH (10:33)
[2022-03-01] MEDS: LORazepam 2 MG/ML VIAL IV PRN ×2 (10:44→22:27)
--- NOTE | 2022-03-01 12:48 | Progress Note ---
Subjective - Reason for Consult Consult date: 03/01/22 Reason for consult: SI - Chief Complaint Chief complaint: The patient was seen today. He says he is not feeling too well. The patient says he did not sleep all night because he can't breath and is stressed about life. He still endorses SI without a plan. He denies hallucinations. REVIEW OF SYSTEMS Constitutional: Negative for weight loss ENT: Negative for stridor Respiratory: Negative for cough or hemoptysis All other systems reviewed and are negative MENTAL STATUS EXAMINATION General Appearance: Dressed appropriately Behavior: calm and cooperative Mood: depressed Affect and affective range: congruent with mood Thought Process: Goal directed Thought content: Suicidal Speech: Normal Suicidal Ideation: Yes Homicidal Ideation: Denies Hallucinations: Auditory Delusions: None Insight and Judgment:Limited insight and judgment Memory: Limited Attention: Distracted Orientation: Alert, oriented Assessment Schizophrenia Substance Abuse Treatment Plan 1013 Increase Seroquel 150mg po QHS Increase Zoloft 75mg po daily Trazodone 50mg po QHS PRN Sitter: Defer to primary Medical: Per primary Disposition: Recommend acute psychiatric inpatient treatment Will follow for medication management. Thank you for this consult. Case staffed with Dr. Tavera Medications and Allergies Mental Status Exam - Vital signs Last Vital Signs Temp 98.5 F 03/01/22 11:40 Pulse 74 03/01/22 11:40 Resp 20 03/01/22 11:40 BP 172/100 03/01/22 11:40 Pulse Ox 96 03/01/22 11:40
[2022-03-01] MEDS ORDERED: QUEtiapine 100 MG TAB PO SCH (12:49)
[2022-03-01] MEDS ORDERED: SERTRALINE 50 MG TAB PO SCH (12:49)
[2022-03-02] MEDS: IPRATROPIUM/ALBUTEROL SULFATE 3 ML AMPUL.NEB IH SCH ×4 (01:38→19:18)
[2022-03-02] MEDS: methylPREDNISolone Sod Succinate 125 MG/2 ML INJ IV SCH ×2 (05:45→13:44)
[2022-03-02] MEDS: hydrALAZINE 20 MG/1 ML INJ IV PRN ×3 (05:45→18:17)
[2022-03-02] MEDS: LORazepam 2 MG/ML VIAL IV PRN ×3 (08:33→16:09)
[2022-03-02] MEDS: guaiFENesin 100 MG/5 ML ORAL LIQD PO PRN (08:52)
[2022-03-02] MEDS ORDERED: cloNIDine 0.1 MG TAB PO NR (09:00)
[2022-03-02] MEDS: amLODIPine 10 MG TAB PO SCH (09:10)
[2022-03-02] MEDS: ASPIRIN EC 325 MG TAB PO SCH (09:10)
[2022-03-02] MEDS: SERTRALINE 50 MG TAB PO SCH (09:10)
[2022-03-02] MEDS: VALSARTAN 160MG TAB PO SCH (09:10)
[2022-03-02] MEDS: HEPARIN 5,000 UNIT/1 ML VIAL SUB-Q SCH (09:11)
[2022-03-02] MEDS: FAMOTIDINE 20 MG TAB PO SCH (09:12)
[2022-03-02] MEDS: ARFORMOTEROL 15 MCG/2 ML NEBU IH SCH ×2 (09:53→19:18)
[2022-03-02] MEDS: BUDESONIDE 0.5 MG/2 ML NEBU IH SCH ×2 (09:53→19:18)
[2022-03-02] MEDS: HYDROmorphone 1 MG/1 ML INJ IV PRN ×3 (10:16→18:17)
--- NOTE | 2022-03-02 14:50 | Progress Note ---
Subjective - Reason for Consult Consult date: 03/02/22 Reason for consult: SI - Chief Complaint Chief complaint: The patient was seen today. He says he feels okay. The patient denies SI/HI at present, but states "I don't know what to do. If I get discharged something might happen." The patient says "the suicide comes and goes. I don't know what will happen." He denies hallucinations of any kind. REVIEW OF SYSTEMS Constitutional: Negative for weight loss ENT: Negative for stridor Respiratory: Negative for cough or hemoptysis All other systems reviewed and are negative MENTAL STATUS EXAMINATION General Appearance: Dressed appropriately Behavior: calm and cooperative Mood: depressed Affect and affective range: congruent with mood Thought Process: Goal directed Thought content: Suicidal Speech: Normal Suicidal Ideation: Yes Homicidal Ideation: Denies Hallucinations: Auditory Delusions: None Insight and Judgment:Limited insight and judgment Memory: Limited Attention: Distracted Orientation: Alert, oriented Assessment Schizophrenia Substance Abuse Treatment Plan 1013 Seroquel 150mg po QHS Zoloft 75mg po daily Trazodone 50mg po QHS PRN Sitter: Defer to primary Medical: Per primary Disposition: Recommend acute psychiatric inpatient treatment Will follow for medication management. Thank you for this consult. Case staffed with Dr. Tavera Medications and Allergies Mental Status Exam - Vital signs Last Vital Signs Temp 97.5 F L 03/02/22 08:15 Pulse 108 H 03/02/22 09:54 Resp 20 03/02/22 10:05 BP 163/101 03/02/22 12:06 Pulse Ox 98 03/02/22 10:00
[2022-03-02 18:04] VITALS: BP 168/103
== END 2022-03-02 19:52 | DRG 191 ==
LOC: ED 19:57 → 4A 02-23 21:32 → 3A 02-24 01:20
PROVIDERS: ADMIT Hospitalist; ATTEND Internal Medicine
DX: J44.1 Chronic obstructive pulmonary disease with (acute) exacerbation (principal); R45.851 Suicidal ideations; I24.9 Acute ischemic heart disease, unspecified; F20.9 Schizophrenia, unspecified; F12.10 Cannabis abuse, uncomplicated; Z20.822 Contact with and (suspected) exposure to COVID-19
CPT/HCPCS: 36415; 71045; 80048; 80076; 80307; 80320; 81001; 82550; 82553; 83880; 84484; 85007; 85025; 93005; 94640; 94644; 94760; G0378; G0480; J0360; J1170; J1644; J1956; J2060; J2270; J2930; J3475; U0003

== ENCOUNTER 2022-03-02 17:52 | Inpatient (IN) | payer MEDICARE ==
[2022-03-02] MEDS ORDERED: LORazepam 2 MG/ML VIAL IM PRN (20:47)
[2022-03-02] MEDS ORDERED: HALOPERIDOL LACTATE 5 MG/1 ML INJ IM PRN (20:50)
[2022-03-02] MEDS ORDERED: traZODone 50 MG TAB PO SCH (22:00)
[2022-03-02] MEDS: MELATONIN 5 MG TAB PO PRN (22:01)
[2022-03-02 23:35] LABS: Hemoglobin 13.4 gm/dl (11.8-15.2); Mean Corpuscular HGB Conc 33 % (32-34); Mean Corpuscular Volume 72 fl (84-94); Platelet Count 251 K/mm3 (140-440); Red Blood Count 5.69 M/mm3 (3.65-5.03); Red Cell Distribution Width 19.5 % (13.2-15.2)
[2022-03-03 03:00] LABS: Alanine Aminotransferase 21 units/L (7-56); Albumin 3.7 g/dL (3.9-5); Blood Urea Nitrogen 25 mg/dL (9-20); Calcium 8.5 mg/dL (8.4-10.2); Chol/HDL Ratio 2.01 %; HDL Cholesterol 56 mg/dL (40-59); Hemolysis Index 8; LDL Cholesterol,Direct 34 mg/dL (50-130)
[2022-03-03 03:03] LABS: BUN/Creatinine Ratio 36
[2022-03-03 04:21] LABS: Basophils % (Manual) 0 % (0.0-1.8); Eosinophils % (Manual) 0 % (0.0-4.3); Total Cells Counted 100
[2022-03-03 04:22] LABS: Hypochromasia 1+
[2022-03-03 04:33] LABS: Anisocytosis 1+; Ovalocytes Few; Platelet Estimate Consistent w Auto; Tear Drop Cells Few
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
[2022-03-03] MEDS ORDERED: traMADol 50 MG TAB PO PRN (09:57)
[2022-03-03] MEDS ORDERED: NITROGLYCERIN 0.4 MG TAB SUBL SL PRN (09:57)
[2022-03-03] MEDS ORDERED: ALBUTEROL 2.5 MG/3 ML NEBU IH PRN (10:04)
[2022-03-03] MEDS: cloNIDine 0.1 MG TAB PO SCH (14:18)
[2022-03-03] MEDS: VALSARTAN 160MG TAB PO SCH ×2 (14:18→22:42)
[2022-03-03] MEDS: FAMOTIDINE 20 MG TAB PO SCH ×2 (14:19→22:43)
[2022-03-03] MEDS: ASPIRIN EC 325 MG TAB PO SCH (14:19)
[2022-03-03] MEDS: SERTRALINE 50 MG TAB PO SCH (14:19)
[2022-03-03] MEDS: hydrALAZINE 25 MG TAB PO SCH ×2 (14:19→22:41)
[2022-03-03] MEDS: ARFORMOTEROL 15 MCG/2 ML NEBU IH SCH ×2 (20:34→21:25)
[2022-03-03] MEDS: BUDESONIDE 0.5 MG/2 ML NEBU IH SCH ×2 (20:34→21:25)
[2022-03-03] MEDS ORDERED: traZODone 50 MG TAB PO PRN (22:00)
[2022-03-03] MEDS: QUEtiapine 100 MG TAB PO SCH (22:44)
[2022-03-04] MEDS: hydrALAZINE 25 MG TAB PO SCH ×3 (06:54→21:09)
--- NOTE | 2022-03-04 08:19 | Consultation ---
History of Present Illness - Reason for Consult Consult date: 03/04/22 Medications and Allergies Allergies Allergy/AdvReac Type Severity Reaction Status Date / Time No Known Allergies Allergy Verified 03/02/22 22:42 Home Medications Medication Instructions Recorded Confirmed Last Taken Type Amlodipine Besylate [Norvasc] 10 mg PO DAILY 02/23/22 03/02/22 Unknown History Acetaminophen [Tylenol] 650 mg PO Q6HR PRN 03/02/22 03/02/22 Unknown History Arformoterol Nebu [Brovana Nebu] 15 mcg IH Q12HR 03/02/22 03/02/22 Unknown History Aspirin EC [Ecotrin] 325 mg PO QDAY tablet 03/02/22 03/02/22 Unknown Rx AtorvaSTATin [Lipitor] 40 mg PO QHS tablet 03/02/22 03/02/22 Unknown Rx Budesonide [Pulmicort Respules] 0.5 mcg INHALATION Q12HR 03/02/22 03/02/22 Unknown History Famotidine [Pepcid] 20 mg PO BID #60 tablet 03/02/22 03/02/22 Unknown Rx Ipratropium/Albuterol Sulfate 1 ampul IH Q6HRT PRN ampul.neb 03/02/22 03/02/22 Unknown Rx [DUONEB *Not for PRN Use*] Nitroglycerin [Nitrostat] 0.4 mg SL Q5M PRN 03/02/22 03/02/22 Unknown History QUEtiapine [SEROquel] 150 mg PO QHS tablet 03/02/22 03/02/22 Unknown Rx Sertraline [Zoloft] 75 mg PO QDAY tablet 03/02/22 03/02/22 Unknown Rx Valsartan [Diovan] 160 mg PO BID tablet 03/02/22 03/02/22 Unknown Rx cloNIDine [Catapres] 0.1 mg PO DAILY 03/02/22 03/02/22 Unknown History hydrALAZINE [Apresoline TAB] 25 mg PO Q8HR #90 tab 03/02/22 03/02/22 Unknown Rx traMADoL [Ultram 50 MG tab] 50 mg PO Q6H PRN tablet 03/02/22 03/02/22 Unknown Rx traMADoL [Ultram 50 MG tab] 50 mg PO Q6HR PRN 03/02/22 03/02/22 Unknown History traZODone [Desyrel] 50 mg PO QHS PRN 03/02/22 03/02/22 Unknown History Active Meds: Active Medications Acetaminophen (Acetaminophen 325 Mg Tab) 650 mg PO Q6HR PRN PRN Reason: Pain, Moderate (4-6) Albuterol (Albuterol 2.5 Mg/3 Ml Nebu) 2.5 mg IH Q6HRT PRN PRN Reason: Bronchospasm Amlodipine Besylate (Amlodipine 10 Mg Tab) 10 mg PO DAILY [facility] Arformoterol Tartrate (Arformoterol 15 Mcg/2 Ml Nebu) 15 mcg IH Q12HRT [facility] Last Admin: 03/03/22 21:25 Dose: Not Given Aspirin (Aspirin Ec 325 Mg Tab) 325 mg PO QDAY [facility] Last Admin: 03/03/22 14:19 Dose: Not Given Atorvastatin Calcium (Atorvastatin 40 Mg Tab) 40 mg PO QHS [facility] Last Admin: 03/03/22 22:43 Dose: 40 mg Budesonide (Budesonide 0.5 Mg/2 Ml Nebu) 0.5 mg IH Q12HRT [facility] Last Admin: 03/03/22 21:25 Dose: Not Given Clonidine HCl (Clonidine 0.1 Mg Tab) 0.1 mg PO DAILY [facility] Last Admin: 03/03/22 14:18 Dose: Not Given Famotidine (Famotidine 20 Mg Tab) 20 mg PO BID [facility] Last Admin: 03/03/22 22:43 Dose: 20 mg Haloperidol Lactate (Haloperidol Lactate 5 Mg/1 Ml Inj) 5 mg IM Q6H PRN PRN Reason: Agitation Last Admin: 03/02/22 22:01 Dose: 5 mg Hydralazine HCl (Hydralazine 25 Mg Tab) 25 mg PO Q8HR [facility] Last Admin: 03/04/22 06:54 Dose: 25 mg Lorazepam (Lorazepam 2 Mg/Ml Vial) 1 mg IM Q6HR PRN PRN Reason: Agitation Last Admin: 03/02/22 22:01 Dose: 1 mg Melatonin (Melatonin 5 Mg Tab) 5 mg PO QHS PRN PRN Reason: Sleep Last Admin: 03/02/22 22:01 Dose: 5 mg Nitroglycerin (Nitroglycerin 0.4 Mg Tab Subl) 0.4 mg SL Q5M PRN PRN Reason: chest pain Quetiapine Fumarate (Quetiapine 100 Mg Tab) 150 mg PO QHS [facility] Last Admin: 03/03/22 22:44 Dose: 150 mg Sertraline HCl (Sertraline 50 Mg Tab) 75 mg PO QDAY [facility] Last Admin: 03/03/22 14:19 Dose: Not Given Tramadol HCl (Tramadol 50 Mg Tab) 50 mg PO Q6HR PRN PRN Reason: Pain, Moderate (4-6) Trazodone HCl (Trazodone 50 Mg Tab) 50 mg PO QHS PRN PRN Reason: Insomnia Valsartan (Valsartan 160mg Tab) 160 mg PO BID [facility] Last Admin: 03/03/22 22:42 Dose: 160 mg Exam - Constitutional Vitals: Temp Pulse Resp BP Pulse Ox 98.9 F 87 18 147/97 95 03/03/22 20:00 03/04/22 06:54 03/03/22 20:00 03/04/22 06:54 03/03/22 20:00 Results - Labs CBC & Chem 7: 03/02/22 23:12 03/02/22 23:12
[2022-03-04] MEDS: FAMOTIDINE 20 MG TAB PO SCH ×2 (10:47→21:10)
[2022-03-04] MEDS: SERTRALINE 50 MG TAB PO SCH (10:47)
[2022-03-04] MEDS: amLODIPine 10 MG TAB PO SCH (10:47)
[2022-03-04] MEDS: ASPIRIN EC 325 MG TAB PO SCH (10:47)
[2022-03-04] MEDS: cloNIDine 0.1 MG TAB PO SCH (10:47)
--- NOTE | 2022-03-04 10:53 | Progress Note ---
Subjective Date of service: 03/04/22 Principal diagnosis: Schizophrenia Subjective Comment: The patient was seen today. He is calm and cooperative. He says he feels much better. He denies SI/HI or hallucinations of any kind. He does verbalize feeling depressed. The patient is requesting placement for drug rehab. REVIEW OF SYSTEMS Constitutional: Negative for weight loss ENT: Negative for stridor Respiratory: Negative for cough or hemoptysis All other systems reviewed and are negative MENTAL STATUS EXAMINATION General Appearance: Dressed appropriately, Behavior: calm and cooperative, odd Mood: depressed Affect and affective range: congruent with mood Thought Process: Goal directed Thought content:Suicidal Speech: Normal Suicidal Ideation: Denies Homicidal Ideation: Denies Hallucinations: Denies Delusions:None Insight and Judgment:Limited insight and judgment Memory: Limited Attention: Distracted Orientation: Alert, oriented Assessment Schizophrenia Treatment Plan Patient admitted for inpatient psychiatric evaluation, medication adjustment and close monitoring The patient's behavior, mood, sleep and appetite will be closely monitored. Patient enrolled in individual and group therapeutic sessions and encouraged to attend. Patient provided with a safe and structured environment. Patient's physical health needs will be addressed by the Hospitalist. Hospitalist Consulted Labs including CBC, CMP, Lipid profile and Hemoglobin A1C levels ordered for baseline reference Social Assessment will be completed and the [employer] will work with patient and family to ensure a suitable and safe disposition Medication adjustment will be made as clinically indicated Continue meds Usual Wellness Anabaptism/Preservation: - Start Trazodone 50 mg po QHS & 50 mg po QHS PRN between 10 PM & 2 AM for insomnia - Start Melatonin 5 mg po QHS to promote circadian rhythm The patient agreed on the treatment plan, understood the risk, benefit, alternative treatment, potential consequence of no treatment, and gave informed consent. Estimated days: 6 Post hospital care: primary care provider, psychiatric provider Case staffed with Dr. Tavera Medications and Allergies Allergies Allergy/AdvReac Type Severity Reaction Status Date / Time No Known Allergies Allergy Verified 03/02/22 22:42 Home Medications Medication Instructions Recorded Confirmed Last Taken Type Amlodipine Besylate [Norvasc] 10 mg PO DAILY 02/23/22 03/02/22 Unknown History Acetaminophen [Tylenol] 650 mg PO Q6HR PRN 03/02/22 03/02/22 Unknown History Arformoterol Nebu [Brovana Nebu] 15 mcg IH Q12HR 03/02/22 03/02/22 Unknown History Aspirin EC [Ecotrin] 325 mg PO QDAY tablet 03/02/22 03/02/22 Unknown Rx AtorvaSTATin [Lipitor] 40 mg PO QHS tablet 03/02/22 03/02/22 Unknown Rx Budesonide [Pulmicort Respules] 0.5 mcg INHALATION Q12HR 03/02/22 03/02/22 Unknown History Famotidine [Pepcid] 20 mg PO BID #60 tablet 03/02/22 03/02/22 Unknown Rx Ipratropium/Albuterol Sulfate 1 ampul IH Q6HRT PRN ampul.neb 03/02/22 03/02/22 Unknown Rx [DUONEB *Not for PRN Use*] Nitroglycerin [Nitrostat] 0.4 mg SL Q5M PRN 03/02/22 03/02/22 Unknown History QUEtiapine [SEROquel] 150 mg PO QHS tablet 03/02/22 03/02/22 Unknown Rx Sertraline [Zoloft] 75 mg PO QDAY tablet 03/02/22 03/02/22 Unknown Rx Valsartan [Diovan] 160 mg PO BID tablet 03/02/22 03/02/22 Unknown Rx cloNIDine [Catapres] 0.1 mg PO DAILY 03/02/22 03/02/22 Unknown History hydrALAZINE [Apresoline TAB] 25 mg PO Q8HR #90 tab 03/02/22 03/02/22 Unknown Rx traMADoL [Ultram 50 MG tab] 50 mg PO Q6H PRN tablet 03/02/22 03/02/22 Unknown Rx traMADoL [Ultram 50 MG tab] 50 mg PO Q6HR PRN 03/02/22 03/02/22 Unknown History traZODone [Desyrel] 50 mg PO QHS PRN 03/02/22 03/02/22 Unknown History Active Meds: Active Medications Acetaminophen (Acetaminophen 325 Mg Tab) 650 mg PO Q6HR PRN PRN Reason: Pain, Moderate (4-6) Albuterol (Albuterol 2.5 Mg/3 Ml Nebu) 2.5 mg IH Q6HRT PRN PRN Reason: Bronchospasm Amlodipine Besylate (Amlodipine 10 Mg Tab) 10 mg PO DAILY [facility] Last Admin: 03/04/22 10:47 Dose: 10 mg Arformoterol Tartrate (Arformoterol 15 Mcg/2 Ml Nebu) 15 mcg IH Q12HRT [facility] Last Admin: 03/03/22 21:25 Dose: Not Given Aspirin (Aspirin Ec 325 Mg Tab) 325 mg PO QDAY [facility] Last Admin: 03/04/22 10:47 Dose: 325 mg Atorvastatin Calcium (Atorvastatin 40 Mg Tab) 40 mg PO QHS [facility] Last Admin: 03/03/22 22:43 Dose: 40 mg Budesonide (Budesonide 0.5 Mg/2 Ml Nebu) 0.5 mg IH Q12HRT [facility] Last Admin: 03/03/22 21:25 Dose: Not Given Clonidine HCl (Clonidine 0.1 Mg Tab) 0.1 mg PO DAILY [facility] Last Admin: 03/04/22 10:47 Dose: 0.1 mg Famotidine (Famotidine 20 Mg Tab) 20 mg PO BID [facility] Last Admin: 03/04/22 10:47 Dose: 20 mg Haloperidol Lactate (Haloperidol Lactate 5 Mg/1 Ml Inj) 5 mg IM Q6H PRN PRN Reason: Agitation Last Admin: 03/02/22 22:01 Dose: 5 mg Hydralazine HCl (Hydralazine 25 Mg Tab) 25 mg PO Q8HR [facility] Last Admin: 03/04/22 06:54 Dose: 25 mg Lorazepam (Lorazepam 2 Mg/Ml Vial) 1 mg IM Q6HR PRN PRN Reason: Agitation Last Admin: 03/02/22 22:01 Dose: 1 mg Melatonin (Melatonin 5 Mg Tab) 5 mg PO QHS PRN PRN Reason: Sleep Last Admin: 03/02/22 22:01 Dose: 5 mg Nitroglycerin (Nitroglycerin 0.4 Mg Tab Subl) 0.4 mg SL Q5M PRN PRN Reason: chest pain Quetiapine Fumarate (Quetiapine 100 Mg Tab) 150 mg PO QHS [facility] Last Admin: 03/03/22 22:44 Dose: 150 mg Sertraline HCl (Sertraline 50 Mg Tab) 75 mg PO QDAY [facility] Last Admin: 03/04/22 10:47 Dose: 75 mg Tramadol HCl (Tramadol 50 Mg Tab) 50 mg PO Q6HR PRN PRN Reason: Pain, Moderate (4-6) Trazodone HCl (Trazodone 50 Mg Tab) 50 mg PO QHS PRN PRN Reason: Insomnia Valsartan (Valsartan 160mg Tab) 160 mg PO BID [facility] Last Admin: 03/03/22 22:42 Dose: 160 mg Results - Results Labs/Vitals: Laboratory Last Values WBC 19.3 K/mm3 (4.5-11.0) H 03/02/22 23:12 RBC 5.69 M/mm3 (3.65-5.03) H 03/02/22 23:12 Hgb 13.4 gm/dl (11.8-15.2) 03/02/22 23:12 Hct 41.0 % (35.5-45.6) 03/02/22 23:12 MCV 72 fl (84-94) L 03/02/22 23:12 MCH 24 pg (28-32) L 03/02/22 23:12 MCHC 33 % (32-34) 03/02/22 23:12 RDW 19.5 % (13.2-15.2) H 03/02/22 23:12 Plt Count 251 K/mm3 (140-440) 03/02/22 23:12 Add Manual Diff Complete 03/02/22 23:12 Total Counted 100 03/02/22 23:12 Seg Neuts % (Manual) 80.0 % (40.0-70.0) H 03/02/22 23:12 Band Neutrophils % 0 % 03/02/22 23:12 Lymphocytes % (Manual) 18.0 % (13.4-35.0) 03/02/22 23:12 Reactive Lymphs % (Man) 0 % 03/02/22 23:12 Monocytes % (Manual) 2.0 % (0.0-7.3) 03/02/22 23:12 Eosinophils % (Manual) 0 % (0.0-4.3) 03/02/22 23:12 Basophils % (Manual) 0 % (0.0-1.8) 03/02/22 23:12 Metamyelocytes % 0 % 03/02/22 23:12 Myelocytes % 0 % 03/02/22 23:12 Promyelocytes % 0 % 03/02/22 23:12 Blast Cells % 0 % 03/02/22 23:12 Nucleated RBC % 1.0 % (0.0-0.9) H 03/02/22 23:12 Seg Neutrophils # Man 15.4 K/mm3 (1.8-7.7) H 03/02/22 23:12 Band Neutrophils # 0.0 K/mm3 03/02/22 23:12 Lymphocytes # (Manual) 3.5 K/mm3 (1.2-5.4) 03/02/22 23:12 Abs React Lymphs (Man) 0.0 K/mm3 03/02/22 23:12 Monocytes # (Manual) 0.4 K/mm3 (0.0-0.8) 03/02/22 23:12 Eosinophils # (Manual) 0.0 K/mm3 (0.0-0.4) 03/02/22 23:12 Basophils # (Manual) 0.0 K/mm3 (0.0-0.1) 03/02/22 23:12 Metamyelocytes # 0.0 K/mm3 03/02/22 23:12 Myelocytes # 0.0 K/mm3 03/02/22 23:12 Promyelocytes # 0.0 K/mm3 03/02/22 23:12 Blast Cells # 0.0 K/mm3 03/02/22 23:12 WBC Morphology Not Reportable 03/02/22 23:12 Hypersegmented Neuts Not Reportable 03/02/22 23:12 Hyposegmented Neuts Not Reportable 03/02/22 23:12 Hypogranular Neuts Not Reportable 03/02/22 23:12 Smudge Cells Not Reportable 03/02/22 23:12 Toxic Granulation Not Reportable 03/02/22 23:12 Toxic Vacuolation Not Reportable 03/02/22 23:12 Dohle Bodies Not Reportable 03/02/22 23:12 Pelger-Huet Anomaly Not Reportable 03/02/22 23:12 Betty Rods Not Reportable 03/02/22 23:12 Platelet Estimate Consistent w auto 03/02/22 23:12 Clumped Platelets Not Reportable 03/02/22 23:12 Plt Clumps, EDTA Not Reportable 03/02/22 23:12 Large Platelets Not Reportable 03/02/22 23:12 Giant Platelets Not Reportable 03/02/22 23:12 Platelet Satelliting Not Reportable 03/02/22 23:12 Plt Morphology Comment Not Reportable 03/02/22 23:12 RBC Morphology Not Reportable 03/02/22 23:12 Dimorphic RBCs Not Reportable 03/02/22 23:12 Polychromasia Not Reportable 03/02/22 23:12 Hypochromasia 1+ 03/02/22 23:12 Poikilocytosis Not Reportable 03/02/22 23:12 Anisocytosis 1+ 03/02/22 23:12 Microcytosis Not Reportable 03/02/22 23:12 Macrocytosis Not Reportable 03/02/22 23:12 Spherocytes Not Reportable 03/02/22 23:12 Pappenheimer Bodies Not Reportable 03/02/22 23:12 Sickle Cells Not Reportable 03/02/22 23:12 Target Cells Not Reportable 03/02/22 23:12 Tear Drop Cells Few 03/02/22 23:12 Ovalocytes Few 03/02/22 23:12 Helmet Cells Not Reportable 03/02/22 23:12 Oliveros-Vado Bodies Not Reportable 03/02/22 23:12 Courtland Rings Not Reportable 03/02/22 23:12 Carole Cells Not Reportable 03/02/22 23:12 Bite Cells Not Reportable 03/02/22 23:12 Crenated Cell Not Reportable 03/02/22 23:12 Elliptocytes Not Reportable 03/02/22 23:12 Acanthocytes (Spur) Not Reportable 03/02/22 23:12 Rouleaux Not Reportable 03/02/22 23:12 Hemoglobin C Crystals Not Reportable 03/02/22 23:12 Schistocytes Not Reportable 03/02/22 23:12 Malaria parasites Not Reportable 03/02/22 23:12 Cruzito Bodies Not Reportable 03/02/22 23:12 Hem Pathologist Commnt No 03/02/22 23:12 Sodium 132 mmol/L (137-145) L 03/02/22 23:12 Potassium 4.3 mmol/L (3.6-5.0) 03/02/22 23:12 Chloride 96.3 mmol/L (98-107) L 03/02/22 23:12 Carbon Dioxide 21 mmol/L (22-30) L 03/02/22 23:12 Anion Gap 19 mmol/L 03/02/22 23:12 BUN 25 mg/dL (9-20) H 03/02/22 23:12 Creatinine 0.7 mg/dL (0.8-1.3) L 03/02/22 23:12 Estimated GFR > 60 ml/min 03/02/22 23:12 BUN/Creatinine Ratio 36 % 03/02/22 23:12 Glucose 162 mg/dL (75-100) H 03/02/22 23:12 POC Glucose 111 mg/dL (70-105) H 03/03/22 06:50 Hemoglobin A1c 7.0 % (4-6) H 03/02/22 23:12 Calcium 8.5 mg/dL (8.4-10.2) 03/02/22 23:12 Total Bilirubin 0.30 mg/dL (0.1-1.2) 03/02/22 23:12 AST 12 units/L (5-40) 03/02/22 23:12 ALT 21 units/L (7-56) 03/02/22 23:12 Alkaline Phosphatase 75 units/L (35-129) 03/02/22 23:12 Total Protein 6.1 g/dL (6.3-8.2) L 03/02/22 23:12 Albumin 3.7 g/dL (3.9-5) L 03/02/22 23:12 Albumin/Globulin Ratio 1.5 % 03/02/22 23:12 Triglycerides 175 mg/dL (2-149) H 03/02/22 23:12 Cholesterol 113 mg/dL (50-199) 03/02/22 23:12 LDL Cholesterol Direct 34 mg/dL (50-130) L 03/02/22 23:12 HDL Cholesterol 56 mg/dL (40-59) 03/02/22 23:12 Cholesterol/HDL Ratio 2.01 % 03/02/22 23:12 TSH 0.741 mlU/mL (0.270-4.200) 03/02/22 23:12 Last Vital Signs Temp 98.9 F 03/03/22 20:00 Pulse 87 03/04/22 06:54 Resp 18 03/03/22 20:00 BP 147/97 03/04/22 06:54 Pulse Ox 95 03/03/22 20:00
[2022-03-04] MEDS: VALSARTAN 160MG TAB PO SCH ×3 (11:07→23:35)
--- NOTE | 2022-03-04 13:43 | Consultation ---
History of Present Illness - Reason for Consult Consult date: 03/02/22 Medical management Requesting physician: MONAE NARANJO - History of Present Illness 46 YO Male with Obesity, HTN, COPD, GERD, MDD, ARTHUR. Pt is admitted to [facility] for psychiatric stabilization. Consult placed by Dr. Naranjo for medical management. Patient seen and evaluated in the recreation room. Pt denies fever, chills, chest pain, palpitation, productive cough, skin rash, recent co ntact, known exposure to COVID-19. Patient resting. Patient exhibits tangential thinking with diminished cognition. Past History Past History Past Medical History: COPD, GERD, hypertension Past Surgical History: No surgical history Social history: single. denies: smoking, alcohol abuse Family history: hypertension Medications and Allergies Allergies Allergy/AdvReac Type Severity Reaction Status Date / Time No Known Allergies Allergy Verified 03/02/22 22:42 Home Medications Medication Instructions Recorded Confirmed Last Taken Type Amlodipine Besylate [Norvasc] 10 mg PO DAILY 02/23/22 03/02/22 Unknown History Acetaminophen [Tylenol] 650 mg PO Q6HR PRN 03/02/22 03/02/22 Unknown History Arformoterol Nebu [Brovana Nebu] 15 mcg IH Q12HR 03/02/22 03/02/22 Unknown History Aspirin EC [Ecotrin] 325 mg PO QDAY tablet 03/02/22 03/02/22 Unknown Rx AtorvaSTATin [Lipitor] 40 mg PO QHS tablet 03/02/22 03/02/22 Unknown Rx Budesonide [Pulmicort Respules] 0.5 mcg INHALATION Q12HR 03/02/22 03/02/22 Unknown History Famotidine [Pepcid] 20 mg PO BID #60 tablet 03/02/22 03/02/22 Unknown Rx Ipratropium/Albuterol Sulfate 1 ampul IH Q6HRT PRN ampul.neb 03/02/22 03/02/22 Unknown Rx [DUONEB *Not for PRN Use*] Nitroglycerin [Nitrostat] 0.4 mg SL Q5M PRN 03/02/22 03/02/22 Unknown History QUEtiapine [SEROquel] 150 mg PO QHS tablet 03/02/22 03/02/22 Unknown Rx Sertraline [Zoloft] 75 mg PO QDAY tablet 03/02/22 03/02/22 Unknown Rx Valsartan [Diovan] 160 mg PO BID tablet 03/02/22 03/02/22 Unknown Rx cloNIDine [Catapres] 0.1 mg PO DAILY 03/02/22 03/02/22 Unknown History hydrALAZINE [Apresoline TAB] 25 mg PO Q8HR #90 tab 03/02/22 03/02/22 Unknown Rx traMADoL [Ultram 50 MG tab] 50 mg PO Q6H PRN tablet 03/02/22 03/02/22 Unknown Rx traMADoL [Ultram 50 MG tab] 50 mg PO Q6HR PRN 03/02/22 03/02/22 Unknown History traZODone [Desyrel] 50 mg PO QHS PRN 03/02/22 03/02/22 Unknown History Active Meds: Active Medications Acetaminophen (Acetaminophen 325 Mg Tab) 650 mg PO Q6HR PRN PRN Reason: Pain, Moderate (4-6) Albuterol (Albuterol 2.5 Mg/3 Ml Nebu) 2.5 mg IH Q6HRT PRN PRN Reason: Bronchospasm Amlodipine Besylate (Amlodipine 10 Mg Tab) 10 mg PO DAILY [facility] Last Admin: 03/04/22 10:47 Dose: 10 mg Arformoterol Tartrate (Arformoterol 15 Mcg/2 Ml Nebu) 15 mcg IH Q12HRT [facility] Last Admin: 03/03/22 21:25 Dose: Not Given Aspirin (Aspirin Ec 325 Mg Tab) 325 mg PO QDAY [facility] Last Admin: 03/04/22 10:47 Dose: 325 mg Atorvastatin Calcium (Atorvastatin 40 Mg Tab) 40 mg PO QHS [facility] Last Admin: 03/03/22 22:43 Dose: 40 mg Budesonide (Budesonide 0.5 Mg/2 Ml Nebu) 0.5 mg IH Q12HRT [facility] Last Admin: 03/03/22 21:25 Dose: Not Given Clonidine HCl (Clonidine 0.1 Mg Tab) 0.1 mg PO DAILY [facility] Last Admin: 03/04/22 10:47 Dose: 0.1 mg Famotidine (Famotidine 20 Mg Tab) 20 mg PO BID [facility] Last Admin: 03/04/22 10:47 Dose: 20 mg Haloperidol Lactate (Haloperidol Lactate 5 Mg/1 Ml Inj) 5 mg IM Q6H PRN PRN Reason: Agitation Last Admin: 03/02/22 22:01 Dose: 5 mg Hydralazine HCl (Hydralazine 25 Mg Tab) 25 mg PO Q8HR [facility] Last Admin: 03/04/22 13:38 Dose: Not Given Lorazepam (Lorazepam 2 Mg/Ml Vial) 1 mg IM Q6HR PRN PRN Reason: Agitation Last Admin: 03/02/22 22:01 Dose: 1 mg Melatonin (Melatonin 5 Mg Tab) 5 mg PO QHS PRN PRN Reason: Sleep Last Admin: 03/02/22 22:01 Dose: 5 mg Nitroglycerin (Nitroglycerin 0.4 Mg Tab Subl) 0.4 mg SL Q5M PRN PRN Reason: chest pain Quetiapine Fumarate (Quetiapine 100 Mg Tab) 150 mg PO QHS [facility] Last Admin: 03/03/22 22:44 Dose: 150 mg Sertraline HCl (Sertraline 50 Mg Tab) 75 mg PO QDAY [facility] Last Admin: 03/04/22 10:47 Dose: 75 mg Tramadol HCl (Tramadol 50 Mg Tab) 50 mg PO Q6HR PRN PRN Reason: Pain, Moderate (4-6) Trazodone HCl (Trazodone 50 Mg Tab) 50 mg PO QHS PRN PRN Reason: Insomnia Valsartan (Valsartan 160mg Tab) 160 mg PO BID [facility] Last Admin: 03/04/22 11:07 Dose: Not Given Review of Systems Constitutional: no weight loss, no weight gain, no fever, no chills Ears, nose, mouth and throat: no ear pain, no ear discharge, no decreased hearing, no nose pain, no nasal discharge Cardiovascular: no chest pain, no orthopnea, no palpitations, no syncope Respiratory: no cough, no shortness of breath Gastrointestinal: no abdominal pain, no nausea, no constipation Genitourinary Male: no hematuria, no flank pain, no urinary frequency, no incontinence, no erectile dysfunction Rectal: no pain, no incontinence, no bleeding Musculoskeletal: no neck stiffness, no neck pain, no arm numbness/tingling, no low back pain, no leg numbness/tingling Integumentary: no rash, no pruritis, no sores, no wounds, no jaundice, no boils Neurological: no head injury, no transient paralysis, no numbness, no tingling, no seizures, no tremors Psychiatric: depression, anxiety attacks, sadness/tearfullness, mood swings, no anxiety, no change in sleep habits, no insomnia, no change in appetite Endocrine: no cold intolerance, no heat intolerance, no excessive thirst, no polyuria, no nocturia Hematologic/Lymphatic: no easy bruising Allergic/Immunologic: no urticaria, no allergic rhinitis, no wheezing Exam - Constitutional Vitals: Temp Pulse Resp BP Pulse Ox 98.9 F 87 18 147/97 95 03/03/22 20:00 03/04/22 06:54 03/03/22 20:00 03/04/22 06:54 03/03/22 20:00 General appearance: Present: no acute distress, obese - EENT Eyes: Present: PERRL ENT: hearing intact, clear oral mucosa - Neck Neck: Present: supple, normal ROM - Respiratory Respiratory effort: normal Respiratory: bilateral: CTA - Cardiovascular Heart Sounds: Present: S1 & S2. Absent: rub, click - Extremities Extremities: pulses symmetrical, No edema Peripheral Pulses: within normal limits - Abdominal General gastrointestinal: Present: soft, non-tender, non-distended, normal bowel sounds Male genitourinary: Present: normal - Integumentary Integumentary: Present: clear, warm, dry - Musculoskeletal Musculoskeletal: gait normal, strength equal bilaterally - Psychiatric Psychiatric: agitated - Neurologic Neurologic: CNII-XII intact, moves all extremities Results - Labs CBC & Chem 7: 03/02/22 23:12 03/02/22 23:12 Assessment and Plan - Patient Problems (1) ARTHUR (generalized anxiety disorder) Current Visit: Yes Status: Acute Plan to address problem: Benzodiazepine therapy as clinically indicated, supportive care. (2) MDD (major depressive disorder) Current Visit: Yes Status: Acute Qualifiers: Major depression episode severity: unspecified Plan to address problem: Continue medical management, cognitive behavioral therapy. Supportive care. (3) HTN (hypertension) Current Visit: Yes Status: Acute Qualifiers: Hypertension type: primary hypertension Qualified Code(s): I10 - Essential (primary) hypertension Plan to address problem: Monitor blood pressure every shift, continue medical management. (4) COPD (chronic obstructive pulmonary disease) Current Visit: Yes Status: Acute Plan to address problem: Supportive care. No acute exacerbation at this time. (5) GERD (gastroesophageal reflux disease) Current Visit: Yes Status: Acute Qualifiers: Esophagitis presence: without esophagitis Qualified Code(s): K21.9 - Gastro-esophageal reflux disease without esophagitis Plan to address problem: PPI therapy, supportive care. (6) Advance care planning Current Visit: Yes Status: Acute Plan to address problem: Disease education conducted, care plan discussed, diagnoses discussed, prognosis discussed, patient is full code. Patient knowledges understanding and agreement with care plan, +30 minutes. (7) Preventative health care Current Visit: Yes Status: Acute Plan to address problem: Patient counseled regarding balanced diet, increase physical activity at discharge, risk factor reduction, low-sodium diet. Patient advised to follow-up with primary care physician for all age and risk factor appropriate screening tests.
[2022-03-04] MEDS: BENZTROPINE 0.5 MG TAB PO SCH ×2 (14:42→21:09)
[2022-03-04] MEDS: QUEtiapine 100 MG TAB PO SCH (21:08)
[2022-03-04] MEDS: MELATONIN 5 MG TAB PO PRN (21:09)
[2022-03-04] MEDS: BUDESONIDE 0.5 MG/2 ML NEBU IH SCH ×2 (22:23→22:24)
[2022-03-04] MEDS: ARFORMOTEROL 15 MCG/2 ML NEBU IH SCH ×2 (22:23→22:24)
[2022-03-05] MEDS: hydrALAZINE 25 MG TAB PO SCH ×3 (06:20→21:07)
--- NOTE | 2022-03-05 08:51 | Progress Note ---
Subjective Date of service: 03/05/22 Principal diagnosis: Schizophrenia Subjective Comment: The patient was seen today. He is calm and cooperative. He still verbalizes depression but states he feels much better. He denies SI/HI or hallucinations. He says his appetite is good but the food is not enough for him. He is asking for double portions. Will recommend this for the patient. The patient is awaiting rehab placement. REVIEW OF SYSTEMS Constitutional: Negative for weight loss ENT: Negative for stridor Respiratory: Negative for cough or hemoptysis All other systems reviewed and are negative MENTAL STATUS EXAMINATION General Appearance: Dressed appropriately, Behavior: calm and cooperative, odd Mood: depressed Affect and affective range: congruent with mood Thought Process: Goal directed Thought content:Suicidal Speech: Normal Suicidal Ideation: Denies Homicidal Ideation: Denies Hallucinations: Denies Delusions: None Insight and Judgment:Limited insight and judgment Memory: Limited Attention: Distracted Orientation: Alert, oriented Assessment Schizophrenia Treatment Plan Patient admitted for inpatient psychiatric evaluation, medication adjustment and close monitoring The patient's behavior, mood, sleep and appetite will be closely monitored. Patient enrolled in individual and group therapeutic sessions and encouraged to attend. Patient provided with a safe and structured environment. Patient's physical health needs will be addressed by the Hospitalist. Hospitalist Consulted Labs including CBC, CMP, Lipid profile and Hemoglobin A1C levels ordered for baseline reference Social Assessment will be completed and the Progressive [employer] will work with patient and family to ensure a suitable and safe disposition Medication adjustment will be made as clinically indicated Continue meds Usual Wellness Mandaeism/Preservation: - Start Trazodone 50 mg po QHS & 50 mg po QHS PRN between 10 PM & 2 AM for insomnia - Start Melatonin 5 mg po QHS to promote circadian rhythm The patient agreed on the treatment plan, understood the risk, benefit, alternative treatment, potential consequence of no treatment, and gave informed consent. Estimated days: 6 Post hospital care: primary care provider, psychiatric provider Case staffed with Dr. Tavera Medications and Allergies Allergies Allergy/AdvReac Type Severity Reaction Status Date / Time No Known Allergies Allergy Verified 03/02/22 22:42 Home Medications Medication Instructions Recorded Confirmed Last Taken Type Amlodipine Besylate [Norvasc] 10 mg PO DAILY 02/23/22 03/02/22 Unknown History Acetaminophen [Tylenol] 650 mg PO Q6HR PRN 03/02/22 03/02/22 Unknown History Arformoterol Nebu [Brovana Nebu] 15 mcg IH Q12HR 03/02/22 03/02/22 Unknown History Aspirin EC [Ecotrin] 325 mg PO QDAY tablet 03/02/22 03/02/22 Unknown Rx AtorvaSTATin [Lipitor] 40 mg PO QHS tablet 03/02/22 03/02/22 Unknown Rx Budesonide [Pulmicort Respules] 0.5 mcg INHALATION Q12HR 03/02/22 03/02/22 Unknown History Famotidine [Pepcid] 20 mg PO BID #60 tablet 03/02/22 03/02/22 Unknown Rx Ipratropium/Albuterol Sulfate 1 ampul IH Q6HRT PRN ampul.neb 03/02/22 03/02/22 Unknown Rx [DUONEB *Not for PRN Use*] Nitroglycerin [Nitrostat] 0.4 mg SL Q5M PRN 03/02/22 03/02/22 Unknown History QUEtiapine [SEROquel] 150 mg PO QHS tablet 03/02/22 03/02/22 Unknown Rx Sertraline [Zoloft] 75 mg PO QDAY tablet 03/02/22 03/02/22 Unknown Rx Valsartan [Diovan] 160 mg PO BID tablet 03/02/22 03/02/22 Unknown Rx cloNIDine [Catapres] 0.1 mg PO DAILY 03/02/22 03/02/22 Unknown History hydrALAZINE [Apresoline TAB] 25 mg PO Q8HR #90 tab 03/02/22 03/02/22 Unknown Rx traMADoL [Ultram 50 MG tab] 50 mg PO Q6H PRN tablet 03/02/22 03/02/22 Unknown Rx traMADoL [Ultram 50 MG tab] 50 mg PO Q6HR PRN 03/02/22 03/02/22 Unknown History traZODone [Desyrel] 50 mg PO QHS PRN 03/02/22 03/02/22 Unknown History Active Meds: Active Medications Acetaminophen (Acetaminophen 325 Mg Tab) 650 mg PO Q6HR PRN PRN Reason: Pain, Moderate (4-6) Albuterol (Albuterol 2.5 Mg/3 Ml Nebu) 2.5 mg IH Q6HRT PRN PRN Reason: Bronchospasm Amlodipine Besylate (Amlodipine 10 Mg Tab) 10 mg PO DAILY [facility] Last Admin: 03/04/22 10:47 Dose: 10 mg Arformoterol Tartrate (Arformoterol 15 Mcg/2 Ml Nebu) 15 mcg IH Q12HRT [facility] Last Admin: 03/04/22 22:24 Dose: Not Given Aspirin (Aspirin Ec 325 Mg Tab) 325 mg PO QDAY [facility] Last Admin: 03/04/22 10:47 Dose: 325 mg Atorvastatin Calcium (Atorvastatin 40 Mg Tab) 40 mg PO QHS [facility] Last Admin: 03/04/22 21:07 Dose: 40 mg Benztropine Mesylate (Benztropine 0.5 Mg Tab) 0.5 mg PO BID [facility] Last Admin: 03/04/22 21:09 Dose: 0.5 mg Budesonide (Budesonide 0.5 Mg/2 Ml Nebu) 0.5 mg IH Q12HRT [facility] Last Admin: 03/04/22 22:24 Dose: Not Given Clonidine HCl (Clonidine 0.1 Mg Tab) 0.1 mg PO DAILY [facility] Last Admin: 03/04/22 10:47 Dose: 0.1 mg Famotidine (Famotidine 20 Mg Tab) 20 mg PO BID [facility] Last Admin: 03/04/22 21:10 Dose: 20 mg Haloperidol Lactate (Haloperidol Lactate 5 Mg/1 Ml Inj) 5 mg IM Q6H PRN PRN Reason: Agitation Last Admin: 03/02/22 22:01 Dose: 5 mg Hydralazine HCl (Hydralazine 25 Mg Tab) 25 mg PO Q8HR [facility] Last Admin: 03/05/22 06:20 Dose: 25 mg Lorazepam (Lorazepam 2 Mg/Ml Vial) 1 mg IM Q6HR PRN PRN Reason: Agitation Last Admin: 03/02/22 22:01 Dose: 1 mg Melatonin (Melatonin 5 Mg Tab) 5 mg PO QHS PRN PRN Reason: Sleep Last Admin: 03/04/22 21:09 Dose: 5 mg Nitroglycerin (Nitroglycerin 0.4 Mg Tab Subl) 0.4 mg SL Q5M PRN PRN Reason: chest pain Quetiapine Fumarate (Quetiapine 100 Mg Tab) 150 mg PO QHS [facility] Last Admin: 03/04/22 21:08 Dose: 150 mg Sertraline HCl (Sertraline 50 Mg Tab) 75 mg PO QDAY [facility] Last Admin: 03/04/22 10:47 Dose: 75 mg Tramadol HCl (Tramadol 50 Mg Tab) 50 mg PO Q6HR PRN PRN Reason: Pain, Moderate (4-6) Trazodone HCl (Trazodone 50 Mg Tab) 50 mg PO QHS PRN PRN Reason: Insomnia Valsartan (Valsartan 160mg Tab) 160 mg PO BID [facility] Last Admin: 03/04/22 23:35 Dose: Not Given Results - Results Labs/Vitals: Laboratory Last Values WBC 19.3 K/mm3 (4.5-11.0) H 03/02/22 23:12 RBC 5.69 M/mm3 (3.65-5.03) H 03/02/22 23:12 Hgb 13.4 gm/dl (11.8-15.2) 03/02/22 23:12 Hct 41.0 % (35.5-45.6) 03/02/22 23:12 MCV 72 fl (84-94) L 03/02/22 23:12 MCH 24 pg (28-32) L 03/02/22 23:12 MCHC 33 % (32-34) 03/02/22 23:12 RDW 19.5 % (13.2-15.2) H 03/02/22 23:12 Plt Count 251 K/mm3 (140-440) 03/02/22 23:12 Add Manual Diff Complete 03/02/22 23:12 Total Counted 100 03/02/22 23:12 Seg Neuts % (Manual) 80.0 % (40.0-70.0) H 03/02/22 23:12 Band Neutrophils % 0 % 03/02/22 23:12 Lymphocytes % (Manual) 18.0 % (13.4-35.0) 03/02/22 23:12 Reactive Lymphs % (Man) 0 % 03/02/22 23:12 Monocytes % (Manual) 2.0 % (0.0-7.3) 03/02/22 23:12 Eosinophils % (Manual) 0 % (0.0-4.3) 03/02/22 23:12 Basophils % (Manual) 0 % (0.0-1.8) 03/02/22 23:12 Metamyelocytes % 0 % 03/02/22 23:12 Myelocytes % 0 % 03/02/22 23:12 Promyelocytes % 0 % 03/02/22 23:12 Blast Cells % 0 % 03/02/22 23:12 Nucleated RBC % 1.0 % (0.0-0.9) H 03/02/22 23:12 Seg Neutrophils # Man 15.4 K/mm3 (1.8-7.7) H 03/02/22 23:12 Band Neutrophils # 0.0 K/mm3 03/02/22 23:12 Lymphocytes # (Manual) 3.5 K/mm3 (1.2-5.4) 03/02/22 23:12 Abs React Lymphs (Man) 0.0 K/mm3 03/02/22 23:12 Monocytes # (Manual) 0.4 K/mm3 (0.0-0.8) 03/02/22 23:12 Eosinophils # (Manual) 0.0 K/mm3 (0.0-0.4) 03/02/22 23:12 Basophils # (Manual) 0.0 K/mm3 (0.0-0.1) 03/02/22 23:12 Metamyelocytes # 0.0 K/mm3 03/02/22 23:12 Myelocytes # 0.0 K/mm3 03/02/22 23:12 Promyelocytes # 0.0 K/mm3 03/02/22 23:12 Blast Cells # 0.0 K/mm3 03/02/22 23:12 WBC Morphology Not Reportable 03/02/22 23:12 Hypersegmented Neuts Not Reportable 03/02/22 23:12 Hyposegmented Neuts Not Reportable 03/02/22 23:12 Hypogranular Neuts Not Reportable 03/02/22 23:12 Smudge Cells Not Reportable 03/02/22 23:12 Toxic Granulation Not Reportable 03/02/22 23:12 Toxic Vacuolation Not Reportable 03/02/22 23:12 Dohle Bodies Not Reportable 03/02/22 23:12 Pelger-Huet Anomaly Not Reportable 03/02/22 23:12 Betty Rods Not Reportable 03/02/22 23:12 Platelet Estimate Consistent w auto 03/02/22 23:12 Clumped Platelets Not Reportable 03/02/22 23:12 Plt Clumps, EDTA Not Reportable 03/02/22 23:12 Large Platelets Not Reportable 03/02/22 23:12 Giant Platelets Not Reportable 03/02/22 23:12 Platelet Satelliting Not Reportable 03/02/22 23:12 Plt Morphology Comment Not Reportable 03/02/22 23:12 RBC Morphology Not Reportable 03/02/22 23:12 Dimorphic RBCs Not Reportable 03/02/22 23:12 Polychromasia Not Reportable 03/02/22 23:12 Hypochromasia 1+ 03/02/22 23:12 Poikilocytosis Not Reportable 03/02/22 23:12 Anisocytosis 1+ 03/02/22 23:12 Microcytosis Not Reportable 03/02/22 23:12 Macrocytosis Not Reportable 03/02/22 23:12 Spherocytes Not Reportable 03/02/22 23:12 Pappenheimer Bodies Not Reportable 03/02/22 23:12 Sickle Cells Not Reportable 03/02/22 23:12 Target Cells Not Reportable 03/02/22 23:12 Tear Drop Cells Few 03/02/22 23:12 Ovalocytes Few 03/02/22 23:12 Helmet Cells Not Reportable 03/02/22 23:12 [place] Bodies Not Reportable 03/02/22 23:12 [place] Rings Not Reportable 03/02/22 23:12 [place] Cells Not Reportable 03/02/22 23:12 Bite Cells Not Reportable 03/02/22 23:12 Crenated Cell Not Reportable 03/02/22 23:12 Elliptocytes Not Reportable 03/02/22 23:12 Acanthocytes (Spur) Not Reportable 03/02/22 23:12 Rouleaux Not Reportable 03/02/22 23:12 Hemoglobin C Crystals Not Reportable 03/02/22 23:12 Schistocytes Not Reportable 03/02/22 23:12 Malaria parasites Not Reportable 03/02/22 23:12 [place] Bodies Not Reportable 03/02/22 23:12 Hem Pathologist Commnt No 03/02/22 23:12 Sodium 132 mmol/L (137-145) L 03/02/22 23:12 Potassium 4.3 mmol/L (3.6-5.0) 03/02/22 23:12 Chloride 96.3 mmol/L (98-107) L 03/02/22 23:12 Carbon Dioxide 21 mmol/L (22-30) L 03/02/22 23:12 Anion Gap 19 mmol/L 03/02/22 23:12 BUN 25 mg/dL (9-20) H 03/02/22 23:12 Creatinine 0.7 mg/dL (0.8-1.3) L 03/02/22 23:12 Estimated GFR > 60 ml/min 03/02/22 23:12 BUN/Creatinine Ratio 36 % 03/02/22 23:12 Glucose 162 mg/dL (75-100) H 03/02/22 23:12 POC Glucose 91 mg/dL (70-105) 03/05/22 06:03 Hemoglobin A1c 7.0 % (4-6) H 03/02/22 23:12 Calcium 8.5 mg/dL (8.4-10.2) 03/02/22 23:12 Total Bilirubin 0.30 mg/dL (0.1-1.2) 03/02/22 23:12 AST 12 units/L (5-40) 03/02/22 23:12 ALT 21 units/L (7-56) 03/02/22 23:12 Alkaline Phosphatase 75 units/L (35-129) 03/02/22 23:12 Total Protein 6.1 g/dL (6.3-8.2) L 03/02/22 23:12 Albumin 3.7 g/dL (3.9-5) L 03/02/22 23:12 Albumin/Globulin Ratio 1.5 % 03/02/22 23:12 Triglycerides 175 mg/dL (2-149) H 03/02/22 23:12 Cholesterol 113 mg/dL (50-199) 03/02/22 23:12 LDL Cholesterol Direct 34 mg/dL (50-130) L 03/02/22 23:12 HDL Cholesterol 56 mg/dL (40-59) 03/02/22 23:12 Cholesterol/HDL Ratio 2.01 % 03/02/22 23:12 TSH 0.741 mlU/mL (0.270-4.200) 03/02/22 23:12 Last Vital Signs Temp 98.6 F 03/05/22 06:05 Pulse 78 03/05/22 06:20 Resp 18 03/05/22 06:05 BP 120/79 03/05/22 06:20 Pulse Ox 97 03/05/22 06:05
[2022-03-05] MEDS: ARFORMOTEROL 15 MCG/2 ML NEBU IH SCH ×2 (08:56→20:04)
[2022-03-05] MEDS: BUDESONIDE 0.5 MG/2 ML NEBU IH SCH ×2 (08:56→20:04)
[2022-03-05] MEDS: FAMOTIDINE 20 MG TAB PO SCH ×2 (09:44→21:08)
[2022-03-05] MEDS: BENZTROPINE 0.5 MG TAB PO SCH ×2 (09:44→21:07)
[2022-03-05] MEDS: ASPIRIN EC 325 MG TAB PO SCH (09:44)
[2022-03-05] MEDS: cloNIDine 0.1 MG TAB PO SCH (09:45)
[2022-03-05] MEDS: SERTRALINE 50 MG TAB PO SCH (09:45)
[2022-03-05] MEDS: ACETAMINOPHEN 325 MG TAB PO PRN (09:45)
[2022-03-05] MEDS: VALSARTAN 160MG TAB PO SCH ×2 (09:47→21:04)
[2022-03-05] MEDS: amLODIPine 10 MG TAB PO SCH (09:47)
--- NOTE | 2022-03-05 18:44 | Progress Note ---
Assessment and Plan - Patient Problems (1) ARTHUR (generalized anxiety disorder) Current Visit: Yes Status: Acute Plan to address problem: Benzodiazepine therapy as clinically indicated, supportive care. (2) MDD (major depressive disorder) Current Visit: Yes Status: Acute Qualifiers: Major depression episode severity: unspecified Plan to address problem: Continue medical management, cognitive behavioral therapy. Supportive care. (3) HTN (hypertension) Current Visit: Yes Status: Acute Qualifiers: Hypertension type: primary hypertension Qualified Code(s): I10 - Essential (primary) hypertension Plan to address problem: Monitor blood pressure every shift, continue medical management. (4) COPD (chronic obstructive pulmonary disease) Current Visit: Yes Status: Acute Plan to address problem: Supportive care. No acute exacerbation at this time. (5) GERD (gastroesophageal reflux disease) Current Visit: Yes Status: Acute Qualifiers: Esophagitis presence: without esophagitis Qualified Code(s): K21.9 - Gastro-esophageal reflux disease without esophagitis Plan to address problem: PPI therapy, supportive care. (6) Advance care planning Current Visit: Yes Status: Acute Plan to address problem: Disease education conducted, care plan discussed, diagnoses discussed, prognosis discussed, patient is full code. Patient knowledges understanding and agreement with care plan, +30 minutes. (7) Preventative health care Current Visit: Yes Status: Acute Plan to address problem: Patient counseled regarding balanced diet, increase physical activity at discharge, risk factor reduction, low-sodium diet. Patient advised to follow-up with primary care physician for all age and risk factor appropriate screening tests. History Interval history: 46 YO Male with Obesity, HTN, COPD, GERD, MDD, ARTHUR. Pt is admitted to [facility] for psychiatric stabilization. Consult placed by Dr. Rodríguez for medical management. Patient seen and evaluated in the recreation room. Patient exhibits tangential thinking with diminished cognition. No reported nursing events. Hospitalist Physical - Constitutional Vitals: Temp Pulse Resp BP Pulse Ox 98.2 F 89 18 128/84 98 03/05/22 07:36 03/05/22 08:50 03/05/22 08:50 03/05/22 07:36 03/05/22 07:36 General appearance: Present: no acute distress, obese - EENT Eyes: Present: PERRL ENT: hearing intact - Neck Neck: Present: supple - Respiratory Respiratory effort: normal Respiratory: bilateral: CTA - Cardiovascular Rhythm: regular Heart Sounds: Present: S1 & S2 - Extremities Extremities: no ischemia Peripheral Pulses: within normal limits - Abdominal General gastrointestinal: soft, non-tender, distended - Integumentary Integumentary: Present: clear, dry - Psychiatric Psychiatric: cooperative - Neurologic Neurologic: CNII-XII intact Results - Labs CBC & Chem 7: 03/02/22 23:12 03/02/22 23:12 Labs: Laboratory Last Values WBC 19.3 K/mm3 (4.5-11.0) H 03/02/22 23:12 RBC 5.69 M/mm3 (3.65-5.03) H 03/02/22 23:12 Hgb 13.4 gm/dl (11.8-15.2) 03/02/22 23:12 Hct 41.0 % (35.5-45.6) 03/02/22 23:12 MCV 72 fl (84-94) L 03/02/22 23:12 MCH 24 pg (28-32) L 03/02/22 23:12 MCHC 33 % (32-34) 03/02/22 23:12 RDW 19.5 % (13.2-15.2) H 03/02/22 23:12 Plt Count 251 K/mm3 (140-440) 03/02/22 23:12 Add Manual Diff Complete 03/02/22 23:12 Total Counted 100 03/02/22 23:12 Seg Neuts % (Manual) 80.0 % (40.0-70.0) H 03/02/22 23:12 Band Neutrophils % 0 % 03/02/22 23:12 Lymphocytes % (Manual) 18.0 % (13.4-35.0) 03/02/22 23:12 Reactive Lymphs % (Man) 0 % 03/02/22 23:12 Monocytes % (Manual) 2.0 % (0.0-7.3) 03/02/22 23:12 Eosinophils % (Manual) 0 % (0.0-4.3) 03/02/22 23:12 Basophils % (Manual) 0 % (0.0-1.8) 03/02/22 23:12 Metamyelocytes % 0 % 03/02/22 23:12 Myelocytes % 0 % 03/02/22 23:12 Promyelocytes % 0 % 03/02/22 23:12 Blast Cells % 0 % 03/02/22 23:12 Nucleated RBC % 1.0 % (0.0-0.9) H 03/02/22 23:12 Seg Neutrophils # Man 15.4 K/mm3 (1.8-7.7) H 03/02/22 23:12 Band Neutrophils # 0.0 K/mm3 03/02/22 23:12 Lymphocytes # (Manual) 3.5 K/mm3 (1.2-5.4) 03/02/22 23:12 Abs React Lymphs (Man) 0.0 K/mm3 03/02/22 23:12 Monocytes # (Manual) 0.4 K/mm3 (0.0-0.8) 03/02/22 23:12 Eosinophils # (Manual) 0.0 K/mm3 (0.0-0.4) 03/02/22 23:12 Basophils # (Manual) 0.0 K/mm3 (0.0-0.1) 03/02/22 23:12 Metamyelocytes # 0.0 K/mm3 03/02/22 23:12 Myelocytes # 0.0 K/mm3 03/02/22 23:12 Promyelocytes # 0.0 K/mm3 03/02/22 23:12 Blast Cells # 0.0 K/mm3 03/02/22 23:12 WBC Morphology Not Reportable 03/02/22 23:12 Hypersegmented Neuts Not Reportable 03/02/22 23:12 Hyposegmented Neuts Not Reportable 03/02/22 23:12 Hypogranular Neuts Not Reportable 03/02/22 23:12 Smudge Cells Not Reportable 03/02/22 23:12 Toxic Granulation Not Reportable 03/02/22 23:12 Toxic Vacuolation Not Reportable 03/02/22 23:12 Dohle Bodies Not Reportable 03/02/22 23:12 Pelger-Huet Anomaly Not Reportable 03/02/22 23:12 Betty Rods Not Reportable 03/02/22 23:12 Platelet Estimate Consistent w auto 03/02/22 23:12 Clumped Platelets Not Reportable 03/02/22 23:12 Plt Clumps, EDTA Not Reportable 03/02/22 23:12 Large Platelets Not Reportable 03/02/22 23:12 Giant Platelets Not Reportable 03/02/22 23:12 Platelet Satelliting Not Reportable 03/02/22 23:12 Plt Morphology Comment Not Reportable 03/02/22 23:12 RBC Morphology Not Reportable 03/02/22 23:12 Dimorphic RBCs Not Reportable 03/02/22 23:12 Polychromasia Not Reportable 03/02/22 23:12 Hypochromasia 1+ 03/02/22 23:12 Poikilocytosis Not Reportable 03/02/22 23:12 Anisocytosis 1+ 03/02/22 23:12 Microcytosis Not Reportable 03/02/22 23:12 Macrocytosis Not Reportable 03/02/22 23:12 Spherocytes Not Reportable 03/02/22 23:12 Pappenheimer Bodies Not Reportable 03/02/22 23:12 Sickle Cells Not Reportable 03/02/22 23:12 Target Cells Not Reportable 03/02/22 23:12 Tear Drop Cells Few 03/02/22 23:12 Ovalocytes Few 03/02/22 23:12 Helmet Cells Not Reportable 03/02/22 23:12 [place] Bodies Not Reportable 03/02/22 23:12 [place] Rings Not Reportable 03/02/22 23:12 [place] Cells Not Reportable 03/02/22 23:12 Bite Cells Not Reportable 03/02/22 23:12 Crenated Cell Not Reportable 03/02/22 23:12 Elliptocytes Not Reportable 03/02/22 23:12 Acanthocytes (Spur) Not Reportable 03/02/22 23:12 Rouleaux Not Reportable 03/02/22 23:12 Hemoglobin C Crystals Not Reportable 03/02/22 23:12 Schistocytes Not Reportable 03/02/22 23:12 Malaria parasites Not Reportable 03/02/22 23:12 [place] Bodies Not Reportable 03/02/22 23:12 Hem Pathologist Commnt No 03/02/22 23:12 Sodium 132 mmol/L (137-145) L 03/02/22 23:12 Potassium 4.3 mmol/L (3.6-5.0) 03/02/22 23:12 Chloride 96.3 mmol/L (98-107) L 03/02/22 23:12 Carbon Dioxide 21 mmol/L (22-30) L 03/02/22 23:12 Anion Gap 19 mmol/L 03/02/22 23:12 BUN 25 mg/dL (9-20) H 03/02/22 23:12 Creatinine 0.7 mg/dL (0.8-1.3) L 03/02/22 23:12 Estimated GFR > 60 ml/min 03/02/22 23:12 BUN/Creatinine Ratio 36 % 03/02/22 23:12 Glucose 162 mg/dL (75-100) H 03/02/22 23:12 POC Glucose 91 mg/dL (70-105) 03/05/22 06:03 Hemoglobin A1c 7.0 % (4-6) H 03/02/22 23:12 Calcium 8.5 mg/dL (8.4-10.2) 03/02/22 23:12 Total Bilirubin 0.30 mg/dL (0.1-1.2) 03/02/22 23:12 AST 12 units/L (5-40) 03/02/22 23:12 ALT 21 units/L (7-56) 03/02/22 23:12 Alkaline Phosphatase 75 units/L (35-129) 03/02/22 23:12 Total Protein 6.1 g/dL (6.3-8.2) L 03/02/22 23:12 Albumin 3.7 g/dL (3.9-5) L 03/02/22 23:12 Albumin/Globulin Ratio 1.5 % 03/02/22 23:12 Triglycerides 175 mg/dL (2-149) H 03/02/22 23:12 Cholesterol 113 mg/dL (50-199) 03/02/22 23:12 LDL Cholesterol Direct 34 mg/dL (50-130) L 03/02/22 23:12 HDL Cholesterol 56 mg/dL (40-59) 03/02/22 23:12 Cholesterol/HDL Ratio 2.01 % 03/02/22 23:12 TSH 0.741 mlU/mL (0.270-4.200) 03/02/22 23:12 SARS-CoV-2 (PCR) Negative (Negative) 03/05/22 11:30 Padgett/IV: Voiding Method Toilet Active Medications - Current Medications Current Medications: Generic Name Dose Route Start Last Admin Trade Name Freq PRN Reason Stop Dose Admin Acetaminophen 650 mg 03/03/22 10:01 03/05/22 09:45 Acetaminophen 325 Mg Tab PO 650 mg Q6HR PRN Administration Pain, Moderate (4-6) Albuterol 2.5 mg 03/03/22 10:04 Albuterol 2.5 Mg/3 Ml Nebu IH Q6HRT PRN Bronchospasm Amlodipine Besylate 10 mg 03/04/22 10:00 03/05/22 09:47 Amlodipine 10 Mg Tab PO Not Given DAILY IMER Arformoterol Tartrate 15 mcg 03/03/22 10:00 03/05/22 08:56 Arformoterol 15 Mcg/2 Ml Nebu IH 15 mcg Q12HRT IMER Administration Aspirin 325 mg 03/03/22 10:00 03/05/22 09:44 Aspirin Ec 325 Mg Tab PO 325 mg QDAY IMER Administration Atorvastatin Calcium 40 mg 03/03/22 22:00 03/04/22 21:07 Atorvastatin 40 Mg Tab PO 40 mg QHS IMER Administration Benztropine Mesylate 0.5 mg 03/04/22 15:00 03/05/22 09:44 Benztropine 0.5 Mg Tab PO 0.5 mg BID IMER Administration Budesonide 0.5 mg 03/03/22 10:00 03/05/22 08:56 Budesonide 0.5 Mg/2 Ml Nebu IH 0.5 mg Q12HRT IMER Administration Clonidine HCl 0.1 mg 03/03/22 11:00 03/05/22 09:45 Clonidine 0.1 Mg Tab PO 0.1 mg DAILY IMER Administration Famotidine 20 mg 03/03/22 11:00 03/05/22 09:44 Famotidine 20 Mg Tab PO 20 mg BID IMER Administration Haloperidol Lactate 5 mg 03/02/22 20:50 03/02/22 22:01 Haloperidol Lactate 5 Mg/1 Ml Inj IM 5 mg Q6H PRN Administration Agitation Hydralazine HCl 25 mg 03/03/22 14:00 03/05/22 13:36 Hydralazine 25 Mg Tab PO Not Given Q8HR IMER Lorazepam 1 mg 03/02/22 20:47 03/02/22 22:01 Lorazepam 2 Mg/Ml Vial IM 1 mg Q6HR PRN Administration Agitation Melatonin 5 mg 03/02/22 20:53 03/04/22 21:09 Melatonin 5 Mg Tab PO 5 mg QHS PRN Administration Sleep Nitroglycerin 0.4 mg 03/03/22 09:57 Nitroglycerin 0.4 Mg Tab Subl SL Q5M PRN chest pain Quetiapine Fumarate 150 mg 03/03/22 22:00 03/04/22 21:08 Quetiapine 100 Mg Tab PO 150 mg QHS IMER Administration Sertraline HCl 75 mg 03/03/22 11:00 03/05/22 09:45 Sertraline 50 Mg Tab PO 75 mg QDAY IMER Administration Tramadol HCl 50 mg 03/03/22 09:57 Tramadol 50 Mg Tab PO Q6HR PRN Pain, Moderate (4-6) Trazodone HCl 50 mg 03/03/22 22:00 Trazodone 50 Mg Tab PO QHS PRN Insomnia Valsartan 160 mg 03/03/22 11:00 03/05/22 09:47 Valsartan 160mg Tab PO Not Given BID IMER
[2022-03-05] MEDS: QUEtiapine 100 MG TAB PO SCH (21:05)
[2022-03-05] MEDS: MELATONIN 5 MG TAB PO PRN (21:05)
[2022-03-06] MEDS: hydrALAZINE 25 MG TAB PO SCH ×3 (05:48→21:28)
[2022-03-06] MEDS: ACETAMINOPHEN 325 MG TAB PO PRN (05:48)
--- NOTE | 2022-03-06 08:41 | Progress Note ---
Subjective Date of service: 03/06/22 Principal diagnosis: Schizophrenia Subjective Comment: 03/06: The patient was seen today. He reports doing well. He reports sleep as fair. He is asking about transferring to [facility]. The patient denies any current suicidal/homicidal ideation and denies hallucinations. No changes made today. 03/05:The patient was seen today. He is calm and cooperative. He still verbalizes depression but states he feels much better. He denies SI/HI or hallucinations. He says his appetite is good but the food is not enough for him. He is asking for double portions. Will recommend this for the patient. The patient is awaiting rehab placement. REVIEW OF SYSTEMS Constitutional: Negative for weight loss ENT: Negative for stridor Respiratory: Negative for cough or hemoptysis All other systems reviewed and are negative MENTAL STATUS EXAMINATION General Appearance: Dressed appropriately, Behavior: calm and cooperative, odd Mood: Calm Affect and affective range: congruent with mood Thought Process: Goal directed Thought content:Reality oriented Speech: Normal Suicidal Ideation: Denies Homicidal Ideation: Denies Hallucinations: Denies Delusions: None Insight and Judgment:Limited insight and judgment Memory: Limited Attention: Distracted Orientation: Alert, oriented Assessment Schizophrenia Treatment Plan Patient admitted for inpatient psychiatric evaluation, medication adjustment and close monitoring The patient's behavior, mood, sleep and appetite will be closely monitored. Patient enrolled in individual and group therapeutic sessions and encouraged to attend. Patient provided with a safe and structured environment. Patient's physical health needs will be addressed by the Hospitalist. Hosp italist Consulted Labs including CBC, CMP, Lipid profile and Hemoglobin A1C levels ordered for baseline reference Social Assessment will be completed and the Seedling Puller will work with patient and family to ensure a suitable and safe disposition Medication adjustment will be made as clinically indicated Continue meds Usual Wellness [place]/Preservation: - Start Trazodone 50 mg po QHS & 50 mg po QHS PRN between 10 PM & 2 AM for insomnia - Start Melatonin 5 mg po QHS to promote circadian rhythm The patient agreed on the treatment plan, understood the risk, benefit, alternative treatment, potential consequence of no treatment, and gave informed consent. Estimated days: 3 Post hospital care: primary care provider, psychiatric provider Case staffed with Dr. Tavera Medications and Allergies Medications and Allergies Allergies Allergy/AdvReac Type Severity Reaction Status Date / Time No Known Allergies Allergy Verified 03/02/22 22:42 Home Medications Medication Instructions Recorded Confirmed Last Taken Type Amlodipine Besylate [Norvasc] 10 mg PO DAILY 02/23/22 03/02/22 Unknown History Acetaminophen [Tylenol] 650 mg PO Q6HR PRN 03/02/22 03/02/22 Unknown History Arformoterol Nebu [Brovana Nebu] 15 mcg IH Q12HR 03/02/22 03/02/22 Unknown History Aspirin EC [Ecotrin] 325 mg PO QDAY tablet 03/02/22 03/02/22 Unknown Rx AtorvaSTATin [Lipitor] 40 mg PO QHS tablet 03/02/22 03/02/22 Unknown Rx Budesonide [Pulmicort Respules] 0.5 mcg INHALATION Q12HR 03/02/22 03/02/22 Unknown History Famotidine [Pepcid] 20 mg PO BID #60 tablet 03/02/22 03/02/22 Unknown Rx Ipratropium/Albuterol Sulfate 1 ampul IH Q6HRT PRN ampul.neb 03/02/22 03/02/22 Unknown Rx [DUONEB *Not for PRN Use*] Nitroglycerin [Nitrostat] 0.4 mg SL Q5M PRN 03/02/22 03/02/22 Unknown History QUEtiapine [SEROquel] 150 mg PO QHS tablet 03/02/22 03/02/22 Unknown Rx Sertraline [Zoloft] 75 mg PO QDAY tablet 03/02/22 03/02/22 Unknown Rx Valsartan [Diovan] 160 mg PO BID tablet 03/02/22 03/02/22 Unknown Rx cloNIDine [Catapres] 0.1 mg PO DAILY 03/02/22 03/02/22 Unknown History hydrALAZINE [Apresoline TAB] 25 mg PO Q8HR #90 tab 03/02/22 03/02/22 Unknown Rx traMADoL [Ultram 50 MG tab] 50 mg PO Q6H PRN tablet 03/02/22 03/02/22 Unknown Rx traMADoL [Ultram 50 MG tab] 50 mg PO Q6HR PRN 03/02/22 03/02/22 Unknown History traZODone [Desyrel] 50 mg PO QHS PRN 03/02/22 03/02/22 Unknown History Active Meds: Active Medications Acetaminophen (Acetaminophen 325 Mg Tab) 650 mg PO Q6HR PRN PRN Reason: Pain, Moderate (4-6) Last Admin: 03/06/22 05:48 Dose: 650 mg Albuterol (Albuterol 2.5 Mg/3 Ml Nebu) 2.5 mg IH Q6HRT PRN PRN Reason: Bronchospasm Amlodipine Besylate (Amlodipine 10 Mg Tab) 10 mg PO DAILY [facility] Last Admin: 03/05/22 09:47 Dose: Not Given Arformoterol Tartrate (Arformoterol 15 Mcg/2 Ml Nebu) 15 mcg IH Q12HRT [facility] Last Admin: 03/05/22 20:04 Dose: 15 mcg Aspirin (Aspirin Ec 325 Mg Tab) 325 mg PO QDAY [facility] Last Admin: 03/05/22 09:44 Dose: 325 mg Atorvastatin Calcium (Atorvastatin 40 Mg Tab) 40 mg PO QHS [facility] Last Admin: 03/05/22 21:06 Dose: 40 mg Benztropine Mesylate (Benztropine 0.5 Mg Tab) 0.5 mg PO BID [facility] Last Admin: 03/05/22 21:07 Dose: 0.5 mg Budesonide (Budesonide 0.5 Mg/2 Ml Nebu) 0.5 mg IH Q12HRT [facility] Last Admin: 03/05/22 20:04 Dose: 0.5 mg Clonidine HCl (Clonidine 0.1 Mg Tab) 0.1 mg PO DAILY [facility] Last Admin: 03/05/22 09:45 Dose: 0.1 mg Famotidine (Famotidine 20 Mg Tab) 20 mg PO BID [facility] Last Admin: 03/05/22 21:08 Dose: 20 mg Haloperidol Lactate (Haloperidol Lactate 5 Mg/1 Ml Inj) 5 mg IM Q6H PRN PRN Reason: Agitation Last Admin: 03/02/22 22:01 Dose: 5 mg Hydralazine HCl (Hydralazine 25 Mg Tab) 25 mg PO Q8HR [facility] Last Admin: 03/06/22 05:48 Dose: 25 mg Lorazepam (Lorazepam 2 Mg/Ml Vial) 1 mg IM Q6HR PRN PRN Reason: Agitation Last Admin: 03/02/22 22:01 Dose: 1 mg Melatonin (Melatonin 5 Mg Tab) 5 mg PO QHS PRN PRN Reason: Sleep Last Admin: 03/05/22 21:05 Dose: 5 mg Nitroglycerin (Nitroglycerin 0.4 Mg Tab Subl) 0.4 mg SL Q5M PRN PRN Reason: chest pain Quetiapine Fumarate (Quetiapine 100 Mg Tab) 150 mg PO QHS [facility] Last Admin: 03/05/22 21:05 Dose: 150 mg Sertraline HCl (Sertraline 50 Mg Tab) 75 mg PO QDAY [facility] Last Admin: 03/05/22 09:45 Dose: 75 mg Tramadol HCl (Tramadol 50 Mg Tab) 50 mg PO Q6HR PRN PRN Reason: Pain, Moderate (4-6) Trazodone HCl (Trazodone 50 Mg Tab) 50 mg PO QHS PRN PRN Reason: Insomnia Last Admin: 03/05/22 21:05 Dose: 50 mg Valsartan (Valsartan 160mg Tab) 160 mg PO BID [facility] Last Admin: 03/05/22 21:04 Dose: 160 mg Results - Results Labs/Vitals: Laboratory Last Values WBC 19.3 K/mm3 (4.5-11.0) H 03/02/22 23:12 RBC 5.69 M/mm3 (3.65-5.03) H 03/02/22 23:12 Hgb 13.4 gm/dl (11.8-15.2) 03/02/22 23:12 Hct 41.0 % (35.5-45.6) 03/02/22 23:12 MCV 72 fl (84-94) L 03/02/22 23:12 MCH 24 pg (28-32) L 03/02/22 23:12 MCHC 33 % (32-34) 03/02/22 23:12 RDW 19.5 % (13.2-15.2) H 03/02/22 23:12 Plt Count 251 K/mm3 (140-440) 03/02/22 23:12 Add Manual Diff Complete 03/02/22 23:12 Total Counted 100 03/02/22 23:12 Seg Neuts % (Manual) 80.0 % (40.0-70.0) H 03/02/22 23:12 Band Neutrophils % 0 % 03/02/22 23:12 Lymphocytes % (Manual) 18.0 % (13.4-35.0) 03/02/22 23:12 Reactive Lymphs % (Man) 0 % 03/02/22 23:12 Monocytes % (Manual) 2.0 % (0.0-7.3) 03/02/22 23:12 Eosinophils % (Manual) 0 % (0.0-4.3) 03/02/22 23:12 Basophils % (Manual) 0 % (0.0-1.8) 03/02/22 23:12 Metamyelocytes % 0 % 03/02/22 23:12 Myelocytes % 0 % 03/02/22 23:12 Promyelocytes % 0 % 03/02/22 23:12 Blast Cells % 0 % 03/02/22 23:12 Nucleated RBC % 1.0 % (0.0-0.9) H 03/02/22 23:12 Seg Neutrophils # Man 15.4 K/mm3 (1.8-7.7) H 03/02/22 23:12 Band Neutrophils # 0.0 K/mm3 03/02/22 23:12 Lymphocytes # (Manual) 3.5 K/mm3 (1.2-5.4) 03/02/22 23:12 Abs React Lymphs (Man) 0.0 K/mm3 03/02/22 23:12 Monocytes # (Manual) 0.4 K/mm3 (0.0-0.8) 03/02/22 23:12 Eosinophils # (Manual) 0.0 K/mm3 (0.0-0.4) 03/02/22 23:12 Basophils # (Manual) 0.0 K/mm3 (0.0-0.1) 03/02/22 23:12 Metamyelocytes # 0.0 K/mm3 03/02/22 23:12 Myelocytes # 0.0 K/mm3 03/02/22 23:12 Promyelocytes # 0.0 K/mm3 03/02/22 23:12 Blast Cells # 0.0 K/mm3 03/02/22 23:12 WBC Morphology Not Reportable 03/02/22 23:12 Hypersegmented Neuts Not Reportable 03/02/22 23:12 Hyposegmented Neuts Not Reportable 03/02/22 23:12 Hypogranular Neuts Not Reportable 03/02/22 23:12 Smudge Cells Not Reportable 03/02/22 23:12 Toxic Granulation Not Reportable 03/02/22 23:12 Toxic Vacuolation Not Reportable 03/02/22 23:12 Dohle Bodies Not Reportable 03/02/22 23:12 Pelger-Huet Anomaly Not Reportable 03/02/22 23:12 Betty Rods Not Reportable 03/02/22 23:12 Platelet Estimate Consistent w auto 03/02/22 23:12 Clumped Platelets Not Reportable 03/02/22 23:12 Plt Clumps, EDTA Not Reportable 03/02/22 23:12 Large Platelets Not Reportable 03/02/22 23:12 Giant Platelets Not Reportable 03/02/22 23:12 Platelet Satelliting Not Reportable 03/02/22 23:12 Plt Morphology Comment Not Reportable 03/02/22 23:12 RBC Morphology Not Reportable 03/02/22 23:12 Dimorphic RBCs Not Reportable 03/02/22 23:12 Polychromasia Not Reportable 03/02/22 23:12 Hypochromasia 1+ 03/02/22 23:12 Poikilocytosis Not Reportable 03/02/22 23:12 Anisocytosis 1+ 03/02/22 23:12 Microcytosis Not Reportable 03/02/22 23:12 Macrocytosis Not Reportable 03/02/22 23:12 Spherocytes Not Reportable 03/02/22 23:12 Pappenheimer Bodies Not Reportable 03/02/22 23:12 Sickle Cells Not Reportable 03/02/22 23:12 Target Cells Not Reportable 03/02/22 23:12 Tear Drop Cells Few 03/02/22 23:12 Ovalocytes Few 03/02/22 23:12 Helmet Cells Not Reportable 03/02/22 23:12 [place] Bodies Not Reportable 03/02/22 23:12 [place] Rings Not Reportable 03/02/22 23:12 [place] Cells Not Reportable 03/02/22 23:12 Bite Cells Not Reportable 03/02/22 23:12 Crenated Cell Not Reportable 03/02/22 23:12 Elliptocytes Not Reportable 03/02/22 23:12 Acanthocytes (Spur) Not Reportable 03/02/22 23:12 Rouleaux Not Reportable 03/02/22 23:12 Hemoglobin C Crystals Not Reportable 03/02/22 23:12 Schistocytes Not Reportable 03/02/22 23:12 Malaria parasites Not Reportable 03/02/22 23:12 [place] Bodies Not Reportable 03/02/22 23:12 Hem Pathologist Commnt No 03/02/22 23:12 Sodium 132 mmol/L (137-145) L 03/02/22 23:12 Potassium 4.3 mmol/L (3.6-5.0) 03/02/22 23:12 Chloride 96.3 mmol/L (98-107) L 03/02/22 23:12 Carbon Dioxide 21 mmol/L (22-30) L 03/02/22 23:12 Anion Gap 19 mmol/L 03/02/22 23:12 BUN 25 mg/dL (9-20) H 03/02/22 23:12 Creatinine 0.7 mg/dL (0.8-1.3) L 03/02/22 23:12 Estimated GFR > 60 ml/min 03/02/22 23:12 BUN/Creatinine Ratio 36 % 03/02/22 23:12 Glucose 162 mg/dL (75-100) H 03/02/22 23:12 POC Glucose 91 mg/dL (70-105) 03/05/22 06:03 Hemoglobin A1c 7.0 % (4-6) H 03/02/22 23:12 Calcium 8.5 mg/dL (8.4-10.2) 03/02/22 23:12 Total Bilirubin 0.30 mg/dL (0.1-1.2) 03/02/22 23:12 AST 12 units/L (5-40) 03/02/22 23:12 ALT 21 units/L (7-56) 03/02/22 23:12 Alkaline Phosphatase 75 units/L (35-129) 03/02/22 23:12 Total Protein 6.1 g/dL (6.3-8.2) L 03/02/22 23:12 Albumin 3.7 g/dL (3.9-5) L 03/02/22 23:12 Albumin/Globulin Ratio 1.5 % 03/02/22 23:12 Triglycerides 175 mg/dL (2-149) H 03/02/22 23:12 Cholesterol 113 mg/dL (50-199) 03/02/22 23:12 LDL Cholesterol Direct 34 mg/dL (50-130) L 03/02/22 23:12 HDL Cholesterol 56 mg/dL (40-59) 03/02/22 23:12 Cholesterol/HDL Ratio 2.01 % 03/02/22 23:12 TSH 0.741 mlU/mL (0.270-4.200) 03/02/22 23:12 SARS-CoV-2 (PCR) Negative (Negative) 03/05/22 11:30 Last Vital Signs Temp 98.5 F 03/05/22 19:35 Pulse 98 H 03/06/22 05:48 Resp 16 03/05/22 20:04 BP 125/91 03/06/22 05:48 Pulse Ox 95 03/05/22 19:35
[2022-03-06] MEDS: BUDESONIDE 0.5 MG/2 ML NEBU IH SCH (08:52)
[2022-03-06] MEDS: ARFORMOTEROL 15 MCG/2 ML NEBU IH SCH (08:52)
[2022-03-06] MEDS: amLODIPine 10 MG TAB PO SCH (10:25)
[2022-03-06] MEDS: cloNIDine 0.1 MG TAB PO SCH (10:26)
[2022-03-06] MEDS: ASPIRIN EC 325 MG TAB PO SCH (10:27)
[2022-03-06] MEDS: BENZTROPINE 0.5 MG TAB PO SCH ×2 (10:27→21:28)
[2022-03-06] MEDS: VALSARTAN 160MG TAB PO SCH ×2 (10:27→21:29)
[2022-03-06] MEDS: FAMOTIDINE 20 MG TAB PO SCH ×2 (10:28→21:30)
[2022-03-06] MEDS: SERTRALINE 50 MG TAB PO SCH (10:28)
[2022-03-06] MEDS: traMADol 50 MG TAB PO PRN (10:32)
[2022-03-06] MEDS: QUEtiapine 100 MG TAB PO SCH (21:30)
[2022-03-07] MEDS: hydrALAZINE 25 MG TAB PO SCH ×3 (06:03→21:28)
[2022-03-07] MEDS: ARFORMOTEROL 15 MCG/2 ML NEBU IH SCH ×2 (09:16→09:18)
[2022-03-07] MEDS: BUDESONIDE 0.5 MG/2 ML NEBU IH SCH ×2 (09:17)
--- NOTE | 2022-03-07 09:29 | Progress Note ---
Subjective Date of service: 03/07/22 Principal diagnosis: Schizophrenia Subjective Comment: 03/07: The patient was seen today. The patient presents in good spirits. He reports reports appetite as good but complain of having fractional sleep. The patient denies any current suicidal/homicidal ideation and denies hallucinations. Increase Melatonin to 10mg po QHS PRN. 03/06: The patient was seen today. He reports doing well. He reports sleep as fair. He is asking about transferring to [facility]. The patient denies any current suicidal/homicidal ideation and denies hallucinations. No changes made today. 03/05:The patient was seen today. He is calm and cooperative. He still verbalizes depression but states he feels much better. He denies SI/HI or hallucinations. He says his appetite is good but the food is not enough for him. He is asking for double portions. Will recommend this for the patient. The patient is awaiting rehab placement. REVIEW OF SYSTEMS Constitutional: Negative for weight loss ENT: Negative for stridor Respiratory: Negative for cough or hemoptysis All other systems reviewed and are negative MENTAL STATUS EXAMINATION General Appearance: Dressed appropriately, Behavior: calm and cooperative, odd Mood: Good Affect and affective range: congruent with mood Thought Process: Goal directed Thought content:Reality oriented Speech: Normal Suicidal Ideation: Denies Homicidal Ideation: Denies Hallucinations: Denies Delusions: None Insight and Judgment:Limited insight and judgment Memory: Limited Attention: Distracted Orientation: Alert, oriented Assessment Schizophrenia Treatment Plan Patient admitted for inpatient psychiatric evaluation, medication adjustment and close monitoring The patient's behavior, mood, sleep and appetite will be closely monitored. Patient enrolled in individual and group therapeutic sessions and encouraged to attend. Patient provided with a safe and structured environment. Patient's physical health needs will be addressed by the Hospitalist. Hospitalist Consulted Labs including CBC, CMP, Lipid profile and Hemoglobin A1C levels ordered for baseline reference Social Assessment will be completed and the American History Teacher will work with patient and family to ensure a suitable and safe disposition Medication adjustment will be made as clinically indicated Continue meds Usual Wellness [place]/Preservation: - Start Trazodone 50 mg po QHS & 50 mg po QHS PRN between 10 PM & 2 AM for insomnia - Start Melatonin 5 mg po QHS to promote circadian rhythm The patient agreed on the treatment plan, understood the risk, benefit, alternative treatment, potential consequence of no treatment, and gave informed consent. Estimated days: 3 Post hospital care: primary care provider, psychiatric provider Case staffed with Dr. Tavera Medications and Allergies Medications and Allergies Allergies Allergy/AdvReac Type Severity Reaction Status Date / Time No Known Allergies Allergy Verified 03/02/22 22:42 Home Medications Medication Instructions Recorded Confirmed Last Taken Type Amlodipine Besylate [Norvasc] 10 mg PO DAILY 02/23/22 03/02/22 Unknown History Acetaminophen [Tylenol] 650 mg PO Q6HR PRN 03/02/22 03/02/22 Unknown History Arformoterol Nebu [Brovana Nebu] 15 mcg IH Q12HR 03/02/22 03/02/22 Unknown History Aspirin EC [Ecotrin] 325 mg PO QDAY tablet 03/02/22 03/02/22 Unknown Rx AtorvaSTATin [Lipitor] 40 mg PO QHS tablet 03/02/22 03/02/22 Unknown Rx Budesonide [Pulmicort Respules] 0.5 mcg INHALATION Q12HR 03/02/22 03/02/22 Unknown History Famotidine [Pepcid] 20 mg PO BID #60 tablet 03/02/22 03/02/22 Unknown Rx Ipratropium/Albuterol Sulfate 1 ampul IH Q6HRT PRN ampul.neb 03/02/22 03/02/22 Unknown Rx [DUONEB *Not for PRN Use*] Nitroglycerin [Nitrostat] 0.4 mg SL Q5M PRN 03/02/22 03/02/22 Unknown History QUEtiapine [SEROquel] 150 mg PO QHS tablet 03/02/22 03/02/22 Unknown Rx Sertraline [Zoloft] 75 mg PO QDAY tablet 03/02/22 03/02/22 Unknown Rx Valsartan [Diovan] 160 mg PO BID tablet 03/02/22 03/02/22 Unknown Rx cloNIDine [Catapres] 0.1 mg PO DAILY 03/02/22 03/02/22 Unknown History hydrALAZINE [Apresoline TAB] 25 mg PO Q8HR #90 tab 03/02/22 03/02/22 Unknown Rx traMADoL [Ultram 50 MG tab] 50 mg PO Q6H PRN tablet 03/02/22 03/02/22 Unknown Rx traMADoL [Ultram 50 MG tab] 50 mg PO Q6HR PRN 03/02/22 03/02/22 Unknown History traZODone [Desyrel] 50 mg PO QHS PRN 03/02/22 03/02/22 Unknown History Active Meds: Active Medications Acetaminophen (Acetaminophen 325 Mg Tab) 650 mg PO Q6HR PRN PRN Reason: Pain, Moderate (4-6) Last Admin: 03/06/22 05:48 Dose: 650 mg Albuterol (Albuterol 2.5 Mg/3 Ml Nebu) 2.5 mg IH Q6HRT PRN PRN Reason: Bronchospasm Amlodipine Besylate (Amlodipine 10 Mg Tab) 10 mg PO DAILY [facility] Last Admin: 03/06/22 10:25 Dose: 10 mg Arformoterol Tartrate (Arformoterol 15 Mcg/2 Ml Nebu) 15 mcg IH Q12HRT [facility] Last Admin: 03/07/22 09:18 Dose: 15 mcg Aspirin (Aspirin Ec 325 Mg Tab) 325 mg PO QDAY [facility] Last Admin: 03/06/22 10:27 Dose: 325 mg Atorvastatin Calcium (Atorvastatin 40 Mg Tab) 40 mg PO QHS [facility] Last Admin: 03/06/22 21:30 Dose: 40 mg Benztropine Mesylate (Benztropine 0.5 Mg Tab) 0.5 mg PO BID [facility] Last Admin: 03/06/22 21:28 Dose: 0.5 mg Budesonide (Budesonide 0.5 Mg/2 Ml Nebu) 0.5 mg IH Q12HRT [facility] Last Admin: 03/07/22 09:17 Dose: 0.5 mg Clonidine HCl (Clonidine 0.1 Mg Tab) 0.1 mg PO DAILY [facility] Last Admin: 03/06/22 10:26 Dose: 0.1 mg Famotidine (Famotidine 20 Mg Tab) 20 mg PO BID [facility] Last Admin: 03/06/22 21:30 Dose: 20 mg Haloperidol Lactate (Haloperidol Lactate 5 Mg/1 Ml Inj) 5 mg IM Q6H PRN PRN Reason: Agitation Last Admin: 03/02/22 22:01 Dose: 5 mg Hydralazine HCl (Hydralazine 25 Mg Tab) 25 mg PO Q8HR [facility] Last Admin: 03/07/22 06:03 Dose: 25 mg Lorazepam (Lorazepam 2 Mg/Ml Vial) 1 mg IM Q6HR PRN PRN Reason: Agitation Last Admin: 03/02/22 22:01 Dose: 1 mg Melatonin (Melatonin 5 Mg Tab) 5 mg PO QHS PRN PRN Reason: Sleep Last Admin: 03/05/22 21:05 Dose: 5 mg Nitroglycerin (Nitroglycerin 0.4 Mg Tab Subl) 0.4 mg SL Q5M PRN PRN Reason: chest pain Quetiapine Fumarate (Quetiapine 100 Mg Tab) 150 mg PO QHS [facility] Last Admin: 03/06/22 21:30 Dose: 150 mg Sertraline HCl (Sertraline 50 Mg Tab) 75 mg PO QDAY [facility] Last Admin: 03/06/22 10:28 Dose: 75 mg Tramadol HCl (Tramadol 50 Mg Tab) 50 mg PO Q6HR PRN PRN Reason: Pain, Moderate (4-6) Last Admin: 03/06/22 10:32 Dose: 50 mg Trazodone HCl (Trazodone 50 Mg Tab) 50 mg PO QHS PRN PRN Reason: Insomnia Last Admin: 03/05/22 21:05 Dose: 50 mg Valsartan (Valsartan 160mg Tab) 160 mg PO BID [facility] Last Admin: 03/06/22 21:29 Dose: 160 mg Results - Results Labs/Vitals: Laboratory Last Values WBC 19.3 K/mm3 (4.5-11.0) H 03/02/22 23:12 RBC 5.69 M/mm3 (3.65-5.03) H 03/02/22 23:12 Hgb 13.4 gm/dl (11.8-15.2) 03/02/22 23:12 Hct 41.0 % (35.5-45.6) 03/02/22 23:12 MCV 72 fl (84-94) L 03/02/22 23:12 MCH 24 pg (28-32) L 03/02/22 23:12 MCHC 33 % (32-34) 03/02/22 23:12 RDW 19.5 % (13.2-15.2) H 03/02/22 23:12 Plt Count 251 K/mm3 (140-440) 03/02/22 23:12 Add Manual Diff Complete 03/02/22 23:12 Total Counted 100 03/02/22 23:12 Seg Neuts % (Manual) 80.0 % (40.0-70.0) H 03/02/22 23:12 Band Neutrophils % 0 % 03/02/22 23:12 Lymphocytes % (Manual) 18.0 % (13.4-35.0) 03/02/22 23:12 Reactive Lymphs % (Man) 0 % 03/02/22 23:12 Monocytes % (Manual) 2.0 % (0.0-7.3) 03/02/22 23:12 Eosinophils % (Manual) 0 % (0.0-4.3) 03/02/22 23:12 Basophils % (Manual) 0 % (0.0-1.8) 03/02/22 23:12 Metamyelocytes % 0 % 03/02/22 23:12 Myelocytes % 0 % 03/02/22 23:12 Promyelocytes % 0 % 03/02/22 23:12 Blast Cells % 0 % 03/02/22 23:12 Nucleated RBC % 1.0 % (0.0-0.9) H 03/02/22 23:12 Seg Neutrophils # Man 15.4 K/mm3 (1.8-7.7) H 03/02/22 23:12 Band Neutrophils # 0.0 K/mm3 03/02/22 23:12 Lymphocytes # (Manual) 3.5 K/mm3 (1.2-5.4) 03/02/22 23:12 Abs React Lymphs (Man) 0.0 K/mm3 03/02/22 23:12 Monocytes # (Manual) 0.4 K/mm3 (0.0-0.8) 03/02/22 23:12 Eosinophils # (Manual) 0.0 K/mm3 (0.0-0.4) 03/02/22 23:12 Basophils # (Manual) 0.0 K/mm3 (0.0-0.1) 03/02/22 23:12 Metamyelocytes # 0.0 K/mm3 03/02/22 23:12 Myelocytes # 0.0 K/mm3 03/02/22 23:12 Promyelocytes # 0.0 K/mm3 03/02/22 23:12 Blast Cells # 0.0 K/mm3 03/02/22 23:12 WBC Morphology Not Reportable 03/02/22 23:12 Hypersegmented Neuts Not Reportable 03/02/22 23:12 Hyposegmented Neuts Not Reportable 03/02/22 23:12 Hypogranular Neuts Not Reportable 03/02/22 23:12 Smudge Cells Not Reportable 03/02/22 23:12 Toxic Granulation Not Reportable 03/02/22 23:12 Toxic Vacuolation Not Reportable 03/02/22 23:12 Dohle Bodies Not Reportable 03/02/22 23:12 Pelger-Huet Anomaly Not Reportable 03/02/22 23:12 Betty Rods Not Reportable 03/02/22 23:12 Platelet Estimate Consistent w auto 03/02/22 23:12 Clumped Platelets Not Reportable 03/02/22 23:12 Plt Clumps, EDTA Not Reportable 03/02/22 23:12 Large Platelets Not Reportable 03/02/22 23:12 Giant Platelets Not Reportable 03/02/22 23:12 Platelet Satelliting Not Reportable 03/02/22 23:12 Plt Morphology Comment Not Reportable 03/02/22 23:12 RBC Morphology Not Reportable 03/02/22 23:12 Dimorphic RBCs Not Reportable 03/02/22 23:12 Polychromasia Not Reportable 03/02/22 23:12 Hypochromasia 1+ 03/02/22 23:12 Poikilocytosis Not Reportable 03/02/22 23:12 Anisocytosis 1+ 03/02/22 23:12 Microcytosis Not Reportable 03/02/22 23:12 Macrocytosis Not Reportable 03/02/22 23:12 Spherocytes Not Reportable 03/02/22 23:12 Pappenheimer Bodies Not Reportable 03/02/22 23:12 Sickle Cells Not Reportable 03/02/22 23:12 Target Cells Not Reportable 03/02/22 23:12 Tear Drop Cells Few 03/02/22 23:12 Ovalocytes Few 03/02/22 23:12 Helmet Cells Not Reportable 03/02/22 23:12 [place] Bodies Not Reportable 03/02/22 23:12 [place] Rings Not Reportable 03/02/22 23:12 [place] Cells Not Reportable 03/02/22 23:12 Bite Cells Not Reportable 03/02/22 23:12 Crenated Cell Not Reportable 03/02/22 23:12 Elliptocytes Not Reportable 03/02/22 23:12 Acanthocytes (Spur) Not Reportable 03/02/22 23:12 Rouleaux Not Reportable 03/02/22 23:12 Hemoglobin C Crystals Not Reportable 03/02/22 23:12 Schistocytes Not Reportable 03/02/22 23:12 Malaria parasites Not Reportable 03/02/22 23:12 [place] Bodies Not Reportable 03/02/22 23:12 Hem Pathologist Commnt No 03/02/22 23:12 Sodium 132 mmol/L (137-145) L 03/02/22 23:12 Potassium 4.3 mmol/L (3.6-5.0) 03/02/22 23:12 Chloride 96.3 mmol/L (98-107) L 03/02/22 23:12 Carbon Dioxide 21 mmol/L (22-30) L 03/02/22 23:12 Anion Gap 19 mmol/L 03/02/22 23:12 BUN 25 mg/dL (9-20) H 03/02/22 23:12 Creatinine 0.7 mg/dL (0.8-1.3) L 03/02/22 23:12 Estimated GFR > 60 ml/min 03/02/22 23:12 BUN/Creatinine Ratio 36 % 03/02/22 23:12 Glucose 162 mg/dL (75-100) H 03/02/22 23:12 POC Glucose 109 mg/dL (70-105) H 03/07/22 06:20 Hemoglobin A1c 7.0 % (4-6) H 03/02/22 23:12 Calcium 8.5 mg/dL (8.4-10.2) 03/02/22 23:12 Total Bilirubin 0.30 mg/dL (0.1-1.2) 03/02/22 23:12 AST 12 units/L (5-40) 03/02/22 23:12 ALT 21 units/L (7-56) 03/02/22 23:12 Alkaline Phosphatase 75 units/L (35-129) 03/02/22 23:12 Total Protein 6.1 g/dL (6.3-8.2) L 03/02/22 23:12 Albumin 3.7 g/dL (3.9-5) L 03/02/22 23:12 Albumin/Globulin Ratio 1.5 % 03/02/22 23:12 Triglycerides 175 mg/dL (2-149) H 03/02/22 23:12 Cholesterol 113 mg/dL (50-199) 03/02/22 23:12 LDL Cholesterol Direct 34 mg/dL (50-130) L 03/02/22 23:12 HDL Cholesterol 56 mg/dL (40-59) 03/02/22 23:12 Cholesterol/HDL Ratio 2.01 % 03/02/22 23:12 TSH 0.741 mlU/mL (0.270-4.200) 03/02/22 23:12 SARS-CoV-2 (PCR) Negative (Negative) 03/05/22 11:30 Last Vital Signs Temp 98.7 F 03/06/22 19:38 Pulse 74 03/07/22 06:03 Resp 17 03/06/22 19:38 BP 131/88 03/07/22 06:03 Pulse Ox 96 03/06/22 19:38
[2022-03-07] MEDS: amLODIPine 10 MG TAB PO SCH (09:31)
[2022-03-07] MEDS: cloNIDine 0.1 MG TAB PO SCH (09:32)
[2022-03-07] MEDS: VALSARTAN 160MG TAB PO SCH ×2 (09:37→21:29)
[2022-03-07] MEDS: ASPIRIN EC 325 MG TAB PO SCH (09:39)
[2022-03-07] MEDS: SERTRALINE 50 MG TAB PO SCH (09:40)
[2022-03-07] MEDS: FAMOTIDINE 20 MG TAB PO SCH ×2 (09:40→21:30)
[2022-03-07] MEDS: BENZTROPINE 0.5 MG TAB PO SCH ×2 (09:40→21:28)
[2022-03-07] MEDS: traMADol 50 MG TAB PO PRN ×2 (09:50→15:42)
[2022-03-07] MEDS: QUEtiapine 100 MG TAB PO SCH (21:30)
[2022-03-07] MEDS: MELATONIN 5 MG TAB PO PRN (21:31)
[2022-03-07] MEDS: ACETAMINOPHEN 325 MG TAB PO PRN (21:31)
[2022-03-08] MEDS: hydrALAZINE 25 MG TAB PO SCH ×3 (06:10→23:00)
[2022-03-08] MEDS: BENZTROPINE 0.5 MG TAB PO SCH ×2 (09:08→22:45)
[2022-03-08] MEDS: SERTRALINE 50 MG TAB PO SCH (09:08)
[2022-03-08] MEDS: amLODIPine 10 MG TAB PO SCH (09:08)
[2022-03-08] MEDS: ASPIRIN EC 325 MG TAB PO SCH (09:08)
[2022-03-08] MEDS: FAMOTIDINE 20 MG TAB PO SCH ×2 (09:08→22:46)
[2022-03-08] MEDS: cloNIDine 0.1 MG TAB PO SCH (09:09)
[2022-03-08] MEDS: VALSARTAN 160MG TAB PO SCH ×3 (09:10→22:58)
--- NOTE | 2022-03-08 09:42 | Progress Note ---
Subjective Date of service: 03/08/22 Principal diagnosis: Schizophrenia Subjective Comment: 03/08:The patient was seen today. He reports doing well. The patient is focused on discharge. The patient denies any current suicidal/homicidal ideation and denies hallucinations. No changes made today. 03/07: The patient was seen today. The patient presents in good spirits. He reports reports appetite as good but complain of having fractional sleep. The patient denies any current suicidal/homicidal ideation and denies hallucinations. Increase Melatonin to 10mg po QHS PRN. 03/06: The patient was seen today. He reports doing well. He reports sleep as fair. He is asking about transferring to [facility]. The patient denies any current suicidal/homicidal ideation and denies hallucinations. No changes made today. 03/05:The patient was seen today. He is calm and cooperative. He still verbalizes depression but states he feels much better. He denies SI/HI or hallucinations. He says his appetite is good but the food is not enough for him. He is asking for double portions. Will recommend this for the patient. The patient is awaiting rehab placement. REVIEW OF SYSTEMS Constitutional: Negative for weight loss ENT: Negative for stridor Respiratory: Negative for cough or hemoptysis All other systems reviewed and are negative MENTAL STATUS EXAMINATION General Appearance: Dressed appropriately, Behavior: calm and cooperative, odd Mood: Good Affect and affective range: congruent with mood Thought Process: Goal directed Thought content:Reality oriented Speech: Normal Suicidal Ideation: Denies Homicidal Ideation: Denies Hallucinations: Denies Delusions: None Insight and Judgment:Limited insight and judgment Memory: Limited Attention: Distracted Orientation: Alert, oriented Assessment Schizophrenia Treatment Plan Patient admitted for inpatient psychiatric evaluation, medication adjustment and close monitoring The patient's behavior, mood, sleep and appetite will be closely monitored. Patient enrolled in individual and group therapeutic sessions and encouraged to attend. Patient provided with a safe and structured environment. Patient's physical health needs will be addressed by the Hospitalist. Hospitalist Consulted Labs including CBC, CMP, Lipid profile and Hemoglobin A1C levels ordered for baseline reference Social Assessment will be completed and the Valve Mechanic will work with patient and family to ensure a suitable and safe disposition Medication adjustment will be made as clinically indicated Continue meds Usual Wellness Orthodox/Preservation: - Start Trazodone 50 mg po QHS & 50 mg po QHS PRN between 10 PM & 2 AM for in somnia - Start Melatonin 5 mg po QHS to promote circadian rhythm The patient agreed on the treatment plan, understood the risk, benefit, alternative treatment, potential consequence of no treatment, and gave informed consent. Estimated days: 3 Post hospital care: primary care provider, psychiatric provider Case staffed with Dr. Tavera Medications and Allergies Medications and Allergies Allergies Allergy/AdvReac Type Severity Reaction Status Date / Time No Known Allergies Allergy Verified 03/02/22 22:42 Home Medications Medication Instructions Recorded Confirmed Last Taken Type Amlodipine Besylate [Norvasc] 10 mg PO DAILY 02/23/22 03/02/22 Unknown History Acetaminophen [Tylenol] 650 mg PO Q6HR PRN 03/02/22 03/02/22 Unknown History Arformoterol Nebu [Brovana Nebu] 15 mcg IH Q12HR 03/02/22 03/02/22 Unknown History Aspirin EC [Ecotrin] 325 mg PO QDAY tablet 03/02/22 03/02/22 Unknown Rx AtorvaSTATin [Lipitor] 40 mg PO QHS tablet 03/02/22 03/02/22 Unknown Rx Budesonide [Pulmicort Respules] 0.5 mcg INHALATION Q12HR 03/02/22 03/02/22 Unknown History Famotidine [Pepcid] 20 mg PO BID #60 tablet 03/02/22 03/02/22 Unknown Rx Ipratropium/Albuterol Sulfate 1 ampul IH Q6HRT PRN ampul.neb 03/02/22 03/02/22 Unknown Rx [DUONEB *Not for PRN Use*] Nitroglycerin [Nitrostat] 0.4 mg SL Q5M PRN 03/02/22 03/02/22 Unknown History QUEtiapine [SEROquel] 150 mg PO QHS tablet 03/02/22 03/02/22 Unknown Rx Sertraline [Zoloft] 75 mg PO QDAY tablet 03/02/22 03/02/22 Unknown Rx Valsartan [Diovan] 160 mg PO BID tablet 03/02/22 03/02/22 Unknown Rx cloNIDine [Catapres] 0.1 mg PO DAILY 03/02/22 03/02/22 Unknown History hydrALAZINE [Apresoline TAB] 25 mg PO Q8HR #90 tab 03/02/22 03/02/22 Unknown Rx traMADoL [Ultram 50 MG tab] 50 mg PO Q6H PRN tablet 03/02/22 03/02/22 Unknown Rx traMADoL [Ultram 50 MG tab] 50 mg PO Q6HR PRN 03/02/22 03/02/22 Unknown History traZODone [Desyrel] 50 mg PO QHS PRN 03/02/22 03/02/22 Unknown History Active Meds: Active Medications Acetaminophen (Acetaminophen 325 Mg Tab) 650 mg PO Q6HR PRN PRN Reason: Pain, Moderate (4-6) Last Admin: 03/07/22 21:31 Dose: 650 mg Albuterol (Albuterol 2.5 Mg/3 Ml Nebu) 2.5 mg IH Q6HRT PRN PRN Reason: Bronchospasm Amlodipine Besylate (Amlodipine 10 Mg Tab) 10 mg PO DAILY [facility] Last Admin: 03/08/22 09:08 Dose: Not Given Arformoterol Tartrate (Arformoterol 15 Mcg/2 Ml Nebu) 15 mcg IH Q12HRT [facility] Last Admin: 03/07/22 09:18 Dose: 15 mcg Aspirin (Aspirin Ec 325 Mg Tab) 325 mg PO QDAY [facility] Last Admin: 03/08/22 09:08 Dose: 325 mg Atorvastatin Calcium (Atorvastatin 40 Mg Tab) 40 mg PO QHS [facility] Last Admin: 03/07/22 21:29 Dose: 40 mg Benztropine Mesylate (Benztropine 0.5 Mg Tab) 0.5 mg PO BID [facility] Last Admin: 03/08/22 09:08 Dose: 0.5 mg Budesonide (Budesonide 0.5 Mg/2 Ml Nebu) 0.5 mg IH Q12HRT [facility] Last Admin: 03/07/22 09:17 Dose: 0.5 mg Clonidine HCl (Clonidine 0.1 Mg Tab) 0.1 mg PO DAILY [facility] Last Admin: 03/08/22 09:09 Dose: 0.1 mg Famotidine (Famotidine 20 Mg Tab) 20 mg PO BID [facility] Last Admin: 03/08/22 09:08 Dose: 20 mg Haloperidol Lactate (Haloperidol Lactate 5 Mg/1 Ml Inj) 5 mg IM Q6H PRN PRN Reason: Agitation Last Admin: 03/02/22 22:01 Dose: 5 mg Hydralazine HCl (Hydralazine 25 Mg Tab) 25 mg PO Q8HR [facility] Last Admin: 03/08/22 06:10 Dose: 25 mg Lorazepam (Lorazepam 2 Mg/Ml Vial) 1 mg IM Q6HR PRN PRN Reason: Agitation Last Admin: 03/02/22 22:01 Dose: 1 mg Melatonin (Melatonin 5 Mg Tab) 10 mg PO QHS PRN PRN Reason: Sleep Last Admin: 03/07/22 21:31 Dose: 10 mg Nitroglycerin (Nitroglycerin 0.4 Mg Tab Subl) 0.4 mg SL Q5M PRN PRN Reason: chest pain Quetiapine Fumarate (Quetiapine 100 Mg Tab) 150 mg PO QHS [facility] Last Admin: 03/07/22 21:30 Dose: 150 mg Sertraline HCl (Sertraline 50 Mg Tab) 75 mg PO QDAY [facility] Last Admin: 03/08/22 09:08 Dose: 75 mg Tramadol HCl (Tramadol 50 Mg Tab) 50 mg PO Q6HR PRN PRN Reason: Pain, Moderate (4-6) Last Admin: 03/07/22 15:42 Dose: 50 mg Trazodone HCl (Trazodone 50 Mg Tab) 50 mg PO QHS PRN PRN Reason: Insomnia Last Admin: 03/05/22 21:05 Dose: 50 mg Valsartan (Valsartan 160mg Tab) 160 mg PO BID [facility] Last Admin: 03/08/22 09:10 Dose: Not Given Results - Results Labs/Vitals: Laboratory Last Values WBC 19.3 K/mm3 (4.5-11.0) H 03/02/22 23:12 RBC 5.69 M/mm3 (3.65-5.03) H 03/02/22 23:12 Hgb 13.4 gm/dl (11.8-15.2) 03/02/22 23:12 Hct 41.0 % (35.5-45.6) 03/02/22 23:12 MCV 72 fl (84-94) L 03/02/22 23:12 MCH 24 pg (28-32) L 03/02/22 23:12 MCHC 33 % (32-34) 03/02/22 23:12 RDW 19.5 % (13.2-15.2) H 03/02/22 23:12 Plt Count 251 K/mm3 (140-440) 03/02/22 23:12 Add Manual Diff Complete 03/02/22 23:12 Total Counted 100 03/02/22 23:12 Seg Neuts % (Manual) 80.0 % (40.0-70.0) H 03/02/22 23:12 Band Neutrophils % 0 % 03/02/22 23:12 Lymphocytes % (Manual) 18.0 % (13.4-35.0) 03/02/22 23:12 Reactive Lymphs % (Man) 0 % 03/02/22 23:12 Monocytes % (Manual) 2.0 % (0.0-7.3) 03/02/22 23:12 Eosinophils % (Manual) 0 % (0.0-4.3) 03/02/22 23:12 Basophils % (Manual) 0 % (0.0-1.8) 03/02/22 23:12 Metamyelocytes % 0 % 03/02/22 23:12 Myelocytes % 0 % 03/02/22 23:12 Promyelocytes % 0 % 03/02/22 23:12 Blast Cells % 0 % 03/02/22 23:12 Nucleated RBC % 1.0 % (0.0-0.9) H 03/02/22 23:12 Seg Neutrophils # Man 15.4 K/mm3 (1.8-7.7) H 03/02/22 23:12 Band Neutrophils # 0.0 K/mm3 03/02/22 23:12 Lymphocytes # (Manual) 3.5 K/mm3 (1.2-5.4) 03/02/22 23:12 Abs React Lymphs (Man) 0.0 K/mm3 03/02/22 23:12 Monocytes # (Manual) 0.4 K/mm3 (0.0-0.8) 03/02/22 23:12 Eosinophils # (Manual) 0.0 K/mm3 (0.0-0.4) 03/02/22 23:12 Basophils # (Manual) 0.0 K/mm3 (0.0-0.1) 03/02/22 23:12 Metamyelocytes # 0.0 K/mm3 03/02/22 23:12 Myelocytes # 0.0 K/mm3 03/02/22 23:12 Promyelocytes # 0.0 K/mm3 03/02/22 23:12 Blast Cells # 0.0 K/mm3 03/02/22 23:12 WBC Morphology Not Reportable 03/02/22 23:12 Hypersegmented Neuts Not Reportable 03/02/22 23:12 Hyposegmented Neuts Not Reportable 03/02/22 23:12 Hypogranular Neuts Not Reportable 03/02/22 23:12 Smudge Cells Not Reportable 03/02/22 23:12 Toxic Granulation Not Reportable 03/02/22 23:12 Toxic Vacuolation Not Reportable 03/02/22 23:12 Dohle Bodies Not Reportable 03/02/22 23:12 Pelger-Huet Anomaly Not Reportable 03/02/22 23:12 Betty Rods Not Reportable 03/02/22 23:12 Platelet Estimate Consistent w auto 03/02/22 23:12 Clumped Platelets Not Reportable 03/02/22 23:12 Plt Clumps, EDTA Not Reportable 03/02/22 23:12 Large Platelets Not Reportable 03/02/22 23:12 Giant Platelets Not Reportable 03/02/22 23:12 Platelet Satelliting Not Reportable 03/02/22 23:12 Plt Morphology Comment Not Reportable 03/02/22 23:12 RBC Morphology Not Reportable 03/02/22 23:12 Dimorphic RBCs Not Reportable 03/02/22 23:12 Polychromasia Not Reportable 03/02/22 23:12 Hypochromasia 1+ 03/02/22 23:12 Poikilocytosis Not Reportable 03/02/22 23:12 Anisocytosis 1+ 03/02/22 23:12 Microcytosis Not Reportable 03/02/22 23:12 Macrocytosis Not Reportable 03/02/22 23:12 Spherocytes Not Reportable 03/02/22 23:12 Pappenheimer Bodies Not Reportable 03/02/22 23:12 Sickle Cells Not Reportable 03/02/22 23:12 Target Cells Not Reportable 03/02/22 23:12 Tear Drop Cells Few 03/02/22 23:12 Ovalocytes Few 03/02/22 23:12 Helmet Cells Not Reportable 03/02/22 23:12 [place] Bodies Not Reportable 03/02/22 23:12 [place] Rings Not Reportable 03/02/22 23:12 [place]ole Cells Not Reportable 03/02/22 23:12 Bite Cells Not Reportable 03/02/22 23:12 Crenated Cell Not Reportable 03/02/22 23:12 Elliptocytes Not Reportable 03/02/22 23:12 Acanthocytes (Spur) Not Reportable 03/02/22 23:12 Rouleaux Not Reportable 03/02/22 23:12 Hemoglobin C Crystals Not Reportable 03/02/22 23:12 Schistocytes Not Reportable 03/02/22 23:12 Malaria parasites Not Reportable 03/02/22 23:12 [place] Bodies Not Reportable 03/02/22 23:12 Hem Pathologist Commnt No 03/02/22 23:12 Sodium 132 mmol/L (137-145) L 03/02/22 23:12 Potassium 4.3 mmol/L (3.6-5.0) 03/02/22 23:12 Chloride 96.3 mmol/L (98-107) L 03/02/22 23:12 Carbon Dioxide 21 mmol/L (22-30) L 03/02/22 23:12 Anion Gap 19 mmol/L 03/02/22 23:12 BUN 25 mg/dL (9-20) H 03/02/22 23:12 Creatinine 0.7 mg/dL (0.8-1.3) L 03/02/22 23:12 Estimated GFR > 60 ml/min 03/02/22 23:12 BUN/Creatinine Ratio 36 % 03/02/22 23:12 Glucose 162 mg/dL (75-100) H 03/02/22 23:12 POC Glucose 118 mg/dL (70-105) H 03/08/22 06:05 Hemoglobin A1c 7.0 % (4-6) H 03/02/22 23:12 Calcium 8.5 mg/dL (8.4-10.2) 03/02/22 23:12 Total Bilirubin 0.30 mg/dL (0.1-1.2) 03/02/22 23:12 AST 12 units/L (5-40) 03/02/22 23:12 ALT 21 units/L (7-56) 03/02/22 23:12 Alkaline Phosphatase 75 units/L (35-129) 03/02/22 23:12 Total Protein 6.1 g/dL (6.3-8.2) L 03/02/22 23:12 Albumin 3.7 g/dL (3.9-5) L 03/02/22 23:12 Albumin/Globulin Ratio 1.5 % 03/02/22 23:12 Triglycerides 175 mg/dL (2-149) H 03/02/22 23:12 Cholesterol 113 mg/dL (50-199) 03/02/22 23:12 LDL Cholesterol Direct 34 mg/dL (50-130) L 03/02/22 23:12 HDL Cholesterol 56 mg/dL (40-59) 03/02/22 23:12 Cholesterol/HDL Ratio 2.01 % 03/02/22 23:12 TSH 0.741 mlU/mL (0.270-4.200) 03/02/22 23:12 SARS-CoV-2 (PCR) Negative (Negative) 03/05/22 11:30 Last Vital Signs Temp 98.6 F 03/07/22 21:48 Pulse 66 03/08/22 06:10 Resp 18 03/07/22 21:48 BP 115/64 03/08/22 06:10 Pulse Ox 96 03/07/22 21:48
--- NOTE | 2022-03-08 19:05 | Progress Note ---
Assessment and Plan - Patient Problems (1) ARTHUR (generalized anxiety disorder) Current Visit: Yes Status: Acute Plan to address problem: Benzodiazepine therapy as clinically indicated, supportive care. (2) MDD (major depressive disorder) Current Visit: Yes Status: Acute Qualifiers: Major depression episode severity: unspecified Plan to address problem: Continue medical management, cognitive behavioral therapy. Supportive care. (3) HTN (hypertension) Status: Acute Qualifiers: Hypertension type: primary hypertension Qualified Code(s): I10 - Essential (primary) hypertension Plan to address problem: Monitor blood pressure every shift, continue medical management. (4) COPD (chronic obstructive pulmonary disease) Current Visit: Yes Status: Acute Plan to address problem: Supportive care. No acute exacerbation at this time. (5) GERD (gastroesophageal reflux disease) Current Visit: Yes Status: Acute Qualifiers: Esophagitis presence: without esophagitis Qualified Code(s): K21.9 - Gastro-esophageal reflux disease without esophagitis Plan to address problem: PPI therapy, supportive care. (6) Advance care planning Current Visit: Yes Status: Acute Plan to address problem: Disease education conducted, care plan discussed, diagnoses discussed, prognosis discussed, patient is full code. Patient knowledges understanding and agreement with care plan, +30 minutes. (7) Preventative health care Current Visit: Yes Status: Acute Plan to address problem: Patient counseled regarding balanced diet, increase physical activity at discharge, risk factor reduction, low-sodium diet. Patient advised to follow-up with primary care physician for all age and risk factor appropriate screening tests. History Interval history: 46 YO Male with Obesity, HTN, COPD, GERD, MDD, ARTHUR. Pt is admitted to [facility] for psychiatric stabilization. Consult placed by Dr. Rodríguez for medical management. Patient seen and evaluated in the recreation room. Patient exhibits tangential thinking with diminished cognition. No reported nursing events. Hospitalist Physical - Constitutional Vitals: Temp Pulse Resp BP Pulse Ox 98.6 F 79 20 133/87 95 03/08/22 19:00 03/08/22 19:00 03/08/22 19:00 03/08/22 19:00 03/08/22 19:00 General appearance: Present: no acute distress, obese - EENT Eyes: Present: PERRL ENT: hearing intact, hearing decreased - Neck Neck: Present: supple - Respiratory Respiratory effort: normal Respiratory: bilateral: CTA - Cardiovascular Rhythm: regular Heart Sounds: Present: S1 & S2 - Extremities Extremities: no ischemia Peripheral Pulses: within normal limits - Abdominal General gastrointestinal: soft, non-tender, non-distended - Integumentary Integumentary: Present: clear, dry - Psychiatric Psychiatric: cooperative - Neurologic Neurologic: CNII-XII intact Results - Labs CBC & Chem 7: 03/02/22 23:12 03/02/22 23:12 Labs: Laboratory Last Values WBC 19.3 K/mm3 (4.5-11.0) H 03/02/22 23:12 RBC 5.69 M/mm3 (3.65-5.03) H 03/02/22 23:12 Hgb 13.4 gm/dl (11.8-15.2) 03/02/22 23:12 Hct 41.0 % (35.5-45.6) 03/02/22 23:12 MCV 72 fl (84-94) L 03/02/22 23:12 MCH 24 pg (28-32) L 03/02/22 23:12 MCHC 33 % (32-34) 03/02/22 23:12 RDW 19.5 % (13.2-15.2) H 03/02/22 23:12 Plt Count 251 K/mm3 (140-440) 03/02/22 23:12 Add Manual Diff Complete 03/02/22 23:12 Total Counted 100 03/02/22 23:12 Seg Neuts % (Manual) 80.0 % (40.0-70.0) H 03/02/22 23:12 Band Neutrophils % 0 % 03/02/22 23:12 Lymphocytes % (Manual) 18.0 % (13.4-35.0) 03/02/22 23:12 Reactive Lymphs % (Man) 0 % 03/02/22 23:12 Monocytes % (Manual) 2.0 % (0.0-7.3) 03/02/22 23:12 Eosinophils % (Manual) 0 % (0.0-4.3) 03/02/22 23:12 Basophils % (Manual) 0 % (0.0-1.8) 03/02/22 23:12 Metamyelocytes % 0 % 03/02/22 23:12 Myelocytes % 0 % 03/02/22 23:12 Promyelocytes % 0 % 03/02/22 23:12 Blast Cells % 0 % 03/02/22 23:12 Nucleated RBC % 1.0 % (0.0-0.9) H 03/02/22 23:12 Seg Neutrophils # Man 15.4 K/mm3 (1.8-7.7) H 03/02/22 23:12 Band Neutrophils # 0.0 K/mm3 03/02/22 23:12 Lymphocytes # (Manual) 3.5 K/mm3 (1.2-5.4) 03/02/22 23:12 Abs React Lymphs (Man) 0.0 K/mm3 03/02/22 23:12 Monocytes # (Manual) 0.4 K/mm3 (0.0-0.8) 03/02/22 23:12 Eosinophils # (Manual) 0.0 K/mm3 (0.0-0.4) 03/02/22 23:12 Basophils # (Manual) 0.0 K/mm3 (0.0-0.1) 03/02/22 23:12 Metamyelocytes # 0.0 K/mm3 03/02/22 23:12 Myelocytes # 0.0 K/mm3 03/02/22 23:12 Promyelocytes # 0.0 K/mm3 03/02/22 23:12 Blast Cells # 0.0 K/mm3 03/02/22 23:12 WBC Morphology Not Reportable 03/02/22 23:12 Hypersegmented Neuts Not Reportable 03/02/22 23:12 Hyposegmented Neuts Not Reportable 03/02/22 23:12 Hypogranular Neuts Not Reportable 03/02/22 23:12 Smudge Cells Not Reportable 03/02/22 23:12 Toxic Granulation Not Reportable 03/02/22 23:12 Toxic Vacuolation Not Reportable 03/02/22 23:12 Dohle Bodies Not Reportable 03/02/22 23:12 Pelger-Huet Anomaly Not Reportable 03/02/22 23:12 Betty Rods Not Reportable 03/02/22 23:12 Platelet Estimate Consistent w auto 03/02/22 23:12 Clumped Platelets Not Reportable 03/02/22 23:12 Plt Clumps, EDTA Not Reportable 03/02/22 23:12 Large Platelets Not Reportable 03/02/22 23:12 Giant Platelets Not Reportable 03/02/22 23:12 Platelet Satelliting Not Reportable 03/02/22 23:12 Plt Morphology Comment Not Reportable 03/02/22 23:12 RBC Morphology Not Reportable 03/02/22 23:12 Dimorphic RBCs Not Reportable 03/02/22 23:12 Polychromasia Not Reportable 03/02/22 23:12 Hypochromasia 1+ 03/02/22 23:12 Poikilocytosis Not Reportable 03/02/22 23:12 Anisocytosis 1+ 03/02/22 23:12 Microcytosis Not Reportable 03/02/22 23:12 Macrocytosis Not Reportable 03/02/22 23:12 Spherocytes Not Reportable 03/02/22 23:12 Pappenheimer Bodies Not Reportable 03/02/22 23:12 Sickle Cells Not Reportable 03/02/22 23:12 Target Cells Not Reportable 03/02/22 23:12 Tear Drop Cells Few 03/02/22 23:12 Ovalocytes Few 03/02/22 23:12 Helmet Cells Not Reportable 03/02/22 23:12 [place] Bodies Not Reportable 03/02/22 23:12 [place] Rings Not Reportable 03/02/22 23:12 [place] Cells Not Reportable 03/02/22 23:12 Bite Cells Not Reportable 03/02/22 23:12 Crenated Cell Not Reportable 03/02/22 23:12 Elliptocytes Not Reportable 03/02/22 23:12 Acanthocytes (Spur) Not Reportable 03/02/22 23:12 Rouleaux Not Reportable 03/02/22 23:12 Hemoglobin C Crystals Not Reportable 03/02/22 23:12 Schistocytes Not Reportable 03/02/22 23:12 Malaria parasites Not Reportable 03/02/22 23:12 [place] Bodies Not Reportable 03/02/22 23:12 Hem Pathologist Commnt No 03/02/22 23:12 Sodium 132 mmol/L (137-145) L 03/02/22 23:12 Potassium 4.3 mmol/L (3.6-5.0) 03/02/22 23:12 Chloride 96.3 mmol/L (98-107) L 03/02/22 23:12 Carbon Dioxide 21 mmol/L (22-30) L 03/02/22 23:12 Anion Gap 19 mmol/L 03/02/22 23:12 BUN 25 mg/dL (9-20) H 03/02/22 23:12 Creatinine 0.7 mg/dL (0.8-1.3) L 03/02/22 23:12 Estimated GFR > 60 ml/min 03/02/22 23:12 BUN/Creatinine Ratio 36 % 03/02/22 23:12 Glucose 162 mg/dL (75-100) H 03/02/22 23:12 POC Glucose 118 mg/dL (70-105) H 03/08/22 06:05 Hemoglobin A1c 7.0 % (4-6) H 03/02/22 23:12 Calcium 8.5 mg/dL (8.4-10.2) 03/02/22 23:12 Total Bilirubin 0.30 mg/dL (0.1-1.2) 03/02/22 23:12 AST 12 units/L (5-40) 03/02/22 23:12 ALT 21 units/L (7-56) 03/02/22 23:12 Alkaline Phosphatase 75 units/L (35-129) 03/02/22 23:12 Total Protein 6.1 g/dL (6.3-8.2) L 03/02/22 23:12 Albumin 3.7 g/dL (3.9-5) L 03/02/22 23:12 Albumin/Globulin Ratio 1.5 % 03/02/22 23:12 Triglycerides 175 mg/dL (2-149) H 03/02/22 23:12 Cholesterol 113 mg/dL (50-199) 03/02/22 23:12 LDL Cholesterol Direct 34 mg/dL (50-130) L 03/02/22 23:12 HDL Cholesterol 56 mg/dL (40-59) 03/02/22 23:12 Cholesterol/HDL Ratio 2.01 % 03/02/22 23:12 TSH 0.741 mlU/mL (0.270-4.200) 03/02/22 23:12 SARS-CoV-2 (PCR) Negative (Negative) 03/05/22 11:30 [place]gett/IV: Voiding Method Toilet Active Medications - Current Medications Current Medications: Generic Name Dose Route Start Last Admin Trade Name Freq PRN Reason Stop Dose Admin Acetaminophen 650 mg 03/03/22 10:01 03/07/22 21:31 Acetaminophen 325 Mg Tab PO 650 mg Q6HR PRN Administration Pain, Moderate (4-6) Albuterol 2.5 mg 03/03/22 10:04 Albuterol 2.5 Mg/3 Ml Nebu IH Q6HRT PRN Bronchospasm Amlodipine Besylate 10 mg 03/04/22 10:00 03/08/22 09:08 Amlodipine 10 Mg Tab PO Not Given DAILY IMER Arformoterol Tartrate 15 mcg 03/03/22 10:00 03/07/22 09:18 Arformoterol 15 Mcg/2 Ml Nebu IH 15 mcg Q12HRT IMER Administration Aspirin 325 mg 03/03/22 10:00 03/08/22 09:08 Aspirin Ec 325 Mg Tab PO 325 mg QDAY IMER Administration Atorvastatin Calcium 40 mg 03/03/22 22:00 03/07/22 21:29 Atorvastatin 40 Mg Tab PO 40 mg QHS IMER Administration Benztropine Mesylate 0.5 mg 03/04/22 15:00 03/08/22 09:08 Benztropine 0.5 Mg Tab PO 0.5 mg BID IMER Administration Budesonide 0.5 mg 03/03/22 10:00 03/07/22 09:17 Budesonide 0.5 Mg/2 Ml Nebu IH 0.5 mg Q12HRT IMER Administration Clonidine HCl 0.1 mg 03/03/22 11:00 03/08/22 09:09 Clonidine 0.1 Mg Tab PO 0.1 mg DAILY IMER Administration Famotidine 20 mg 03/03/22 11:00 03/08/22 09:08 Famotidine 20 Mg Tab PO 20 mg BID IMER Administration Haloperidol Lactate 5 mg 03/02/22 20:50 03/02/22 22:01 Haloperidol Lactate 5 Mg/1 Ml Inj IM 5 mg Q6H PRN Administration Agitation Hydralazine HCl 25 mg 03/03/22 14:00 03/08/22 13:43 Hydralazine 25 Mg Tab PO Not Given Q8HR IMER Lorazepam 1 mg 03/02/22 20:47 03/02/22 22:01 Lorazepam 2 Mg/Ml Vial IM 1 mg Q6HR PRN Administration Agitation Melatonin 10 mg 03/07/22 22:00 03/07/22 21:31 Melatonin 5 Mg Tab PO 10 mg QHS PRN Administration Sleep Nitroglycerin 0.4 mg 03/03/22 09:57 Nitroglycerin 0.4 Mg Tab Subl SL Q5M PRN chest pain Quetiapine Fumarate 150 mg 03/03/22 22:00 03/07/22 21:30 Quetiapine 100 Mg Tab PO 150 mg QHS IMER Administration Sertraline HCl 75 mg 03/03/22 11:00 03/08/22 09:08 Sertraline 50 Mg Tab PO 75 mg QDAY IMER Administration Tramadol HCl 50 mg 03/03/22 09:57 03/07/22 15:42 Tramadol 50 Mg Tab PO 50 mg Q6HR PRN Administration Pain, Moderate (4-6) Trazodone HCl 50 mg 03/03/22 22:00 03/05/22 21:05 Trazodone 50 Mg Tab PO 50 mg QHS PRN Administration Insomnia Valsartan 160 mg 03/03/22 11:00 03/08/22 09:10 Valsartan 160mg Tab PO Not Given BID IMER
[2022-03-08] MEDS: BUDESONIDE 0.5 MG/2 ML NEBU IH SCH ×3 (20:41→20:45)
[2022-03-08] MEDS: ARFORMOTEROL 15 MCG/2 ML NEBU IH SCH ×3 (20:41→20:45)
[2022-03-08] MEDS: QUEtiapine 100 MG TAB PO SCH (22:44)
[2022-03-09] MEDS: hydrALAZINE 25 MG TAB PO SCH ×3 (06:54→21:01)
[2022-03-09] MEDS: BUDESONIDE 0.5 MG/2 ML NEBU IH SCH ×2 (08:15→23:34)
[2022-03-09] MEDS: ARFORMOTEROL 15 MCG/2 ML NEBU IH SCH ×3 (08:15→23:34)
--- NOTE | 2022-03-09 09:02 | Progress Note ---
Subjective Date of service: 03/09/22 Principal diagnosis: Schizophrenia Subjective Comment: 03/09: The patient was seen today. He is calm and cooperative. The patient is focused on discharge. The patient denies any current suicidal/homicidal ideation and denies hallucinations. No changes made today. The patient is clear from psych point of view. 03/08:The patient was seen today. He reports doing well. The patient is focused on discharge. The patient denies any current suicidal/homicidal ideation and denies hallucinations. No changes made today. 03/07: The patient was seen today. The patient presents in good spirits. He reports reports appetite as good but complain of having fractional sleep. The patient denies any current suicidal/homicidal ideation and denies hallucinations. Increase Melatonin to 10mg po QHS PRN. 03/06: The patient was seen today. He reports doing well. He reports sleep as fair. He is asking about transferring to [facility]. The patient denies any current suicidal/homicidal ideation and denies hallucinations. No changes made today. 03/05:The patient was seen today. He is calm and cooperative. He still verbalizes depression but states he feels much better. He denies SI/HI or hallucinations. He says his appetite is good but the food is not enough for him. He is asking for double portions. Will recommend this for the patient. The patient is awaiting rehab placement. REVIEW OF SYSTEMS Constitutional: Negative for weight loss ENT: Negative for stridor Respiratory: Negative for cough or hemoptysis All other systems reviewed and are negative MENTAL STATUS EXAMINATION General Appearance: Dressed appropriately, Behavior: calm and cooperative, odd Mood: OK Affect and affective range: congruent with mood Thought Process: Goal directed Thought content:Reality oriented Speech: Normal Suicidal Ideation: Denies Homicidal Ideation: Denies Hallucinations: Denies Delusions: None Insight and Judgment:Limited insight and judgment Memory: Limited Attention: Distracted Orientation: Alert, oriented Assessment Schizophrenia Treatment Plan Patient admitted for inpatient psychiatric evaluation, medication adjustment and close monitoring The patient's behavior, mood, sleep and appetite will be closely monitored. Patient enrolled in individual and group therapeutic sessions and encouraged to attend. Patient provided with a safe and structured environment. Patient's physical health needs will be addressed by the Hospitalist. Hospitalist Consulted Labs including CBC, CMP, Lipid profile and Hemoglobin A1C levels ordered for baseline reference Social Assessment will be completed and the [facility] will work with pat ient and family to ensure a suitable and safe disposition Medication adjustment will be made as clinically indicated Continue meds Usual Wellness Moravian/Preservation: - Start Trazodone 50 mg po QHS & 50 mg po QHS PRN between 10 PM & 2 AM for insomnia - Start Melatonin 5 mg po QHS to promote circadian rhythm The patient agreed on the treatment plan, understood the risk, benefit, alternative treatment, potential consequence of no treatment, and gave informed consent. Estimated days: 3 Post hospital care: primary care provider, psychiatric provider Case staffed with Dr. Tavera Medications and Allergies Medications and Allergies Allergies Allergy/AdvReac Type Severity Reaction Status Date / Time No Known Allergies Allergy Verified 03/02/22 22:42 Home Medications Medication Instructions Recorded Confirmed Last Taken Type Amlodipine Besylate [Norvasc] 10 mg PO DAILY 02/23/22 03/02/22 Unknown History Acetaminophen [Tylenol] 650 mg PO Q6HR PRN 03/02/22 03/02/22 Unknown History Arformoterol Nebu [Brovana Nebu] 15 mcg IH Q12HR 03/02/22 03/02/22 Unknown History Aspirin EC [Ecotrin] 325 mg PO QDAY tablet 03/02/22 03/02/22 Unknown Rx AtorvaSTATin [Lipitor] 40 mg PO QHS tablet 03/02/22 03/02/22 Unknown Rx Budesonide [Pulmicort Respules] 0.5 mcg INHALATION Q12HR 03/02/22 03/02/22 Unknown History Famotidine [Pepcid] 20 mg PO BID #60 tablet 03/02/22 03/02/22 Unknown Rx Ipratropium/Albuterol Sulfate 1 ampul IH Q6HRT PRN ampul.neb 03/02/22 03/02/22 Unknown Rx [DUONEB *Not for PRN Use*] Nitroglycerin [Nitrostat] 0.4 mg SL Q5M PRN 03/02/22 03/02/22 Unknown History QUEtiapine [SEROquel] 150 mg PO QHS tablet 03/02/22 03/02/22 Unknown Rx Sertraline [Zoloft] 75 mg PO QDAY tablet 03/02/22 03/02/22 Unknown Rx Valsartan [Diovan] 160 mg PO BID tablet 03/02/22 03/02/22 Unknown Rx cloNIDine [Catapres] 0.1 mg PO DAILY 03/02/22 03/02/22 Unknown History hydrALAZINE [Apresoline TAB] 25 mg PO Q8HR #90 tab 03/02/22 03/02/22 Unknown Rx traMADoL [Ultram 50 MG tab] 50 mg PO Q6H PRN tablet 03/02/22 03/02/22 Unknown Rx traMADoL [Ultram 50 MG tab] 50 mg PO Q6HR PRN 03/02/22 03/02/22 Unknown History traZODone [Desyrel] 50 mg PO QHS PRN 03/02/22 03/02/22 Unknown History Active Meds: Active Medications Acetaminophen (Acetaminophen 325 Mg Tab) 650 mg PO Q6HR PRN PRN Reason: Pain, Moderate (4-6) Last Admin: 03/07/22 21:31 Dose: 650 mg Albuterol (Albuterol 2.5 Mg/3 Ml Nebu) 2.5 mg IH Q6HRT PRN PRN Reason: Bronchospasm Amlodipine Besylate (Amlodipine 10 Mg Tab) 10 mg PO DAILY [facility] Last Admin: 03/08/22 09:08 Dose: Not Given Arformoterol Tartrate (Arformoterol 15 Mcg/2 Ml Nebu) 15 mcg IH Q12HRT [facility] Last Admin: 03/08/22 20:45 Dose: 15 mcg Aspirin (Aspirin Ec 325 Mg Tab) 325 mg PO QDAY [facility] Last Admin: 03/08/22 09:08 Dose: 325 mg Atorvastatin Calcium (Atorvastatin 40 Mg Tab) 40 mg PO QHS [facility] Last Admin: 03/08/22 22:46 Dose: 40 mg Benztropine Mesylate (Benztropine 0.5 Mg Tab) 0.5 mg PO BID [facility] Last Admin: 03/08/22 22:45 Dose: 0.5 mg Budesonide (Budesonide 0.5 Mg/2 Ml Nebu) 0.5 mg IH Q12HRT [facility] Last Admin: 03/08/22 20:45 Dose: 0.5 mg Clonidine HCl (Clonidine 0.1 Mg Tab) 0.1 mg PO DAILY [facility] Last Admin: 03/08/22 09:09 Dose: 0.1 mg Famotidine (Famotidine 20 Mg Tab) 20 mg PO BID [facility] Last Admin: 03/08/22 22:46 Dose: 20 mg Haloperidol Lactate (Haloperidol Lactate 5 Mg/1 Ml Inj) 5 mg IM Q6H PRN PRN Reason: Agitation Last Admin: 03/02/22 22:01 Dose: 5 mg Hydralazine HCl (Hydralazine 25 Mg Tab) 25 mg PO Q8HR [facility] Last Admin: 03/09/22 06:54 Dose: 25 mg Lorazepam (Lorazepam 2 Mg/Ml Vial) 1 mg IM Q6HR PRN PRN Reason: Agitation Last Admin: 03/02/22 22:01 Dose: 1 mg Melatonin (Melatonin 5 Mg Tab) 10 mg PO QHS PRN PRN Reason: Sleep Last Admin: 03/07/22 21:31 Dose: 10 mg Nitroglycerin (Nitroglycerin 0.4 Mg Tab Subl) 0.4 mg SL Q5M PRN PRN Reason: chest pain Quetiapine Fumarate (Quetiapine 100 Mg Tab) 150 mg PO QHS [facility] Last Admin: 03/08/22 22:44 Dose: 150 mg Sertraline HCl (Sertraline 50 Mg Tab) 75 mg PO QDAY [facility] Last Admin: 03/08/22 09:08 Dose: 75 mg Tramadol HCl (Tramadol 50 Mg Tab) 50 mg PO Q6HR PRN PRN Reason: Pain, Moderate (4-6) Last Admin: 03/07/22 15:42 Dose: 50 mg Trazodone HCl (Trazodone 50 Mg Tab) 50 mg PO QHS PRN PRN Reason: Insomnia Last Admin: 03/05/22 21:05 Dose: 50 mg Valsartan (Valsartan 160mg Tab) 160 mg PO BID [facility] Last Admin: 03/08/22 22:58 Dose: 160 mg Results - Results Labs/Vitals: Laboratory Last Values WBC 19.3 K/mm3 (4.5-11.0) H 03/02/22 23:12 RBC 5.69 M/mm3 (3.65-5.03) H 03/02/22 23:12 Hgb 13.4 gm/dl (11.8-15.2) 03/02/22 23:12 Hct 41.0 % (35.5-45.6) 03/02/22 23:12 MCV 72 fl (84-94) L 03/02/22 23:12 MCH 24 pg (28-32) L 03/02/22 23:12 MCHC 33 % (32-34) 03/02/22 23:12 RDW 19.5 % (13.2-15.2) H 03/02/22 23:12 Plt Count 251 K/mm3 (140-440) 03/02/22 23:12 Add Manual Diff Complete 03/02/22 23:12 Total Counted 100 03/02/22 23:12 Seg Neuts % (Manual) 80.0 % (40.0-70.0) H 03/02/22 23:12 Band Neutrophils % 0 % 03/02/22 23:12 Lymphocytes % (Manual) 18.0 % (13.4-35.0) 03/02/22 23:12 Reactive Lymphs % (Man) 0 % 03/02/22 23:12 Monocytes % (Manual) 2.0 % (0.0-7.3) 03/02/22 23:12 Eosinophils % (Manual) 0 % (0.0-4.3) 03/02/22 23:12 Basophils % (Manual) 0 % (0.0-1.8) 03/02/22 23:12 Metamyelocytes % 0 % 03/02/22 23:12 Myelocytes % 0 % 03/02/22 23:12 Promyelocytes % 0 % 03/02/22 23:12 Blast Cells % 0 % 03/02/22 23:12 Nucleated RBC % 1.0 % (0.0-0.9) H 03/02/22 23:12 Seg Neutrophils # Man 15.4 K/mm3 (1.8-7.7) H 03/02/22 23:12 Band Neutrophils # 0.0 K/mm3 03/02/22 23:12 Lymphocytes # (Manual) 3.5 K/mm3 (1.2-5.4) 03/02/22 23:12 Abs React Lymphs (Man) 0.0 K/mm3 03/02/22 23:12 Monocytes # (Manual) 0.4 K/mm3 (0.0-0.8) 03/02/22 23:12 Eosinophils # (Manual) 0.0 K/mm3 (0.0-0.4) 03/02/22 23:12 Basophils # (Manual) 0.0 K/mm3 (0.0-0.1) 03/02/22 23:12 Metamyelocytes # 0.0 K/mm3 03/02/22 23:12 Myelocytes # 0.0 K/mm3 03/02/22 23:12 Promyelocytes # 0.0 K/mm3 03/02/22 23:12 Blast Cells # 0.0 K/mm3 03/02/22 23:12 WBC Morphology Not Reportable 03/02/22 23:12 Hypersegmented Neuts Not Reportable 03/02/22 23:12 Hyposegmented Neuts Not Reportable 03/02/22 23:12 Hypogranular Neuts Not Reportable 03/02/22 23:12 Smudge Cells Not Reportable 03/02/22 23:12 Toxic Granulation Not Reportable 03/02/22 23:12 Toxic Vacuolation Not Reportable 03/02/22 23:12 Dohle Bodies Not Reportable 03/02/22 23:12 Pelger-Huet Anomaly Not Reportable 03/02/22 23:12 Betty Rods Not Reportable 03/02/22 23:12 Platelet Estimate Consistent w auto 03/02/22 23:12 Clumped Platelets Not Reportable 03/02/22 23:12 Plt Clumps, EDTA Not Reportable 03/02/22 23:12 Large Platelets Not Reportable 03/02/22 23:12 Giant Platelets Not Reportable 03/02/22 23:12 Platelet Satelliting Not Reportable 03/02/22 23:12 Plt Morphology Comment Not Reportable 03/02/22 23:12 RBC Morphology Not Reportable 03/02/22 23:12 Dimorphic RBCs Not Reportable 03/02/22 23:12 Polychromasia Not Reportable 03/02/22 23:12 Hypochromasia 1+ 03/02/22 23:12 Poikilocytosis Not Reportable 03/02/22 23:12 Anisocytosis 1+ 03/02/22 23:12 Microcytosis Not Reportable 03/02/22 23:12 Macrocytosis Not Reportable 03/02/22 23:12 Spherocytes Not Reportable 03/02/22 23:12 Pappenheimer Bodies Not Reportable 03/02/22 23:12 Sickle Cells Not Reportable 03/02/22 23:12 Target Cells Not Reportable 03/02/22 23:12 Tear Drop Cells Few 03/02/22 23:12 Ovalocytes Few 03/02/22 23:12 Helmet Cells Not Reportable 03/02/22 23:12 Oliveros-Baden Bodies Not Reportable 03/02/22 23:12 Atwood Rings Not Reportable 03/02/22 23:12 Carole Cells Not Reportable 03/02/22 23:12 Bite Cells Not Reportable 03/02/22 23:12 Crenated Cell Not Reportable 03/02/22 23:12 Elliptocytes Not Reportable 03/02/22 23:12 Acanthocytes (Spur) Not Reportable 03/02/22 23:12 Rouleaux Not Reportable 03/02/22 23:12 Hemoglobin C Crystals Not Reportable 03/02/22 23:12 Schistocytes Not Reportable 03/02/22 23:12 Malaria parasites Not Reportable 03/02/22 23:12 Cruzito Bodies Not Reportable 03/02/22 23:12 Hem Pathologist Commnt No 03/02/22 23:12 Sodium 132 mmol/L (137-145) L 03/02/22 23:12 Potassium 4.3 mmol/L (3.6-5.0) 03/02/22 23:12 Chloride 96.3 mmol/L (98-107) L 03/02/22 23:12 Carbon Dioxide 21 mmol/L (22-30) L 03/02/22 23:12 Anion Gap 19 mmol/L 03/02/22 23:12 BUN 25 mg/dL (9-20) H 03/02/22 23:12 Creatinine 0.7 mg/dL (0.8-1.3) L 03/02/22 23:12 Estimated GFR > 60 ml/min 03/02/22 23:12 BUN/Creatinine Ratio 36 % 03/02/22 23:12 Glucose 162 mg/dL (75-100) H 03/02/22 23:12 POC Glucose 118 mg/dL (70-105) H 03/08/22 06:05 Hemoglobin A1c 7.0 % (4-6) H 03/02/22 23:12 Calcium 8.5 mg/dL (8.4-10.2) 03/02/22 23:12 Total Bilirubin 0.30 mg/dL (0.1-1.2) 03/02/22 23:12 AST 12 units/L (5-40) 03/02/22 23:12 ALT 21 units/L (7-56) 03/02/22 23:12 Alkaline Phosphatase 75 units/L (35-129) 03/02/22 23:12 Total Protein 6.1 g/dL (6.3-8.2) L 03/02/22 23:12 Albumin 3.7 g/dL (3.9-5) L 03/02/22 23:12 Albumin/Globulin Ratio 1.5 % 03/02/22 23:12 Triglycerides 175 mg/dL (2-149) H 03/02/22 23:12 Cholesterol 113 mg/dL (50-199) 03/02/22 23:12 LDL Cholesterol Direct 34 mg/dL (50-130) L 03/02/22 23:12 HDL Cholesterol 56 mg/dL (40-59) 03/02/22 23:12 Cholesterol/HDL Ratio 2.01 % 03/02/22 23:12 TSH 0.741 mlU/mL (0.270-4.200) 03/02/22 23:12 SARS-CoV-2 (PCR) Negative (Negative) 03/05/22 11:30 Last Vital Signs Temp 98.3 F 03/09/22 06:02 Pulse 74 03/09/22 06:54 Resp 20 03/09/22 06:02 BP 124/76 03/09/22 06:54 Pulse Ox 97 03/09/22 06:02
--- NOTE | 2022-03-09 10:27 | XRay Report ---
CHEST 1 VIEW 03/09/2022 9:12 AM INDICATION / CLINICAL INFORMATION: Placement. COMPARISON: 02/23/22. FINDINGS: SUPPORT DEVICES: None. HEART / MEDIASTINUM: The heart size and pulmonary vasculature are normal. Pulmonary vascular congesti on has resolved. LUNGS / PLEURA: No significant pulmonary or pleural abnormality. Interstitial lung disease has cleare d. No pneumothorax. ADDITIONAL FINDINGS: No significant additional findings. IMPRESSION: No acute findings. Interval resolution of mild congestion/interstitial lung disease. Signer Name: Cheo Womack MD Signed: 03/09/2022 10:22 AM Workstation Name: [id number]
[2022-03-09] MEDS: BENZTROPINE 0.5 MG TAB PO SCH ×2 (11:43→21:01)
[2022-03-09] MEDS: VALSARTAN 160MG TAB PO SCH ×2 (11:43→21:00)
[2022-03-09] MEDS: FAMOTIDINE 20 MG TAB PO SCH ×2 (11:43→21:01)
[2022-03-09] MEDS: cloNIDine 0.1 MG TAB PO SCH (11:43)
[2022-03-09] MEDS: amLODIPine 10 MG TAB PO SCH (11:43)
[2022-03-09] MEDS: ASPIRIN EC 325 MG TAB PO SCH (11:43)
[2022-03-09] MEDS: SERTRALINE 50 MG TAB PO SCH (11:44)
[2022-03-09] MEDS: QUEtiapine 100 MG TAB PO SCH (21:00)
[2022-03-09] MEDS: MELATONIN 5 MG TAB PO PRN (21:02)
[2022-03-10] MEDS: hydrALAZINE 25 MG TAB PO SCH ×3 (05:23→22:05)
--- NOTE | 2022-03-10 07:46 | Progress Note ---
Assessment and Plan - Patient Problems (1) ARTHUR (generalized anxiety disorder) Current Visit: Yes Status: Acute Plan to address problem: Benzodiazepine therapy as clinically indicated, supportive care. (2) MDD (major depressive disorder) Current Visit: Yes Status: Acute Qualifiers: Major depression episode severity: unspecified Plan to address problem: Continue medical management, cognitive behavioral therapy. Supportive care. (3) HTN (hypertension) Status: Acute Qualifiers: Hypertension type: primary hypertension Qualified Code(s): I10 - Essential (primary) hypertension Plan to address problem: Monitor blood pressure every shift, continue medical management. (4) COPD (chronic obstructive pulmonary disease) Current Visit: Yes Status: Acute Plan to address problem: Supportive care. No acute exacerbation at this time. (5) GERD (gastroesophageal reflux disease) Current Visit: Yes Status: Acute Qualifiers: Esophagitis presence: without esophagitis Qualified Code(s): K21.9 - Gastro-esophageal reflux disease without esophagitis Plan to address problem: PPI therapy, supportive care. (6) Advance care planning Current Visit: Yes Status: Acute Plan to address problem: Disease education conducted, care plan discussed, diagnoses discussed, prognosis discussed, patient is full code. Patient knowledges understanding and agreement with care plan, +30 minutes. (7) Preventative health care Current Visit: Yes Status: Acute Plan to address problem: Patient counseled regarding balanced diet, increase physical activity at discharge, risk factor reduction, low-sodium diet. Patient advised to follow-up with primary care physician for all age and risk factor appropriate screening tests. Subjective Date of service: 03/09/22 Principal diagnosis: Schizophrenia Interval history: History Interval history: 46 YO Male with Obesity, HTN, COPD, GERD, MDD, ARTHUR. Pt is admitted to [facility] for psychiatric stabilization. Consult placed by Dr. Rodríguez for medical management. Patient seen and evaluated in the recreation room. Patient exhibits tangential thinking with diminished cognition. No reported nursing events. Objective - Constitutional Vitals: Vital Signs - 12hr 03/09/22 03/09/22 03/10/22 21:00 21:01 05:23 Pulse Rate 80 Blood Pressure 130/85 130/85 128/88 General appearance: Present: no acute distress, well-nourished - EENT Eyes: PERRL, EOM intact ENT: hearing intact, clear oral mucosa Ears: bilateral: normal - Neck Neck: supple, normal ROM - Respiratory Respiratory effort: normal Respiratory: bilateral: CTA - Breasts Breasts: normal - Cardiovascular Heart rate: 78 Rhythm: regular Heart Sounds: Present: S1 & S2. Absent: gallop, rub Extremities: pulses intact, No edema, normal color, Full ROM - Gastrointestinal General gastrointestinal: Present: soft, non-tender, non-distended, normal bowel sounds - Genitourinary Male genitourinary: normal - Integumentary Integumentary: clear, warm, dry - Musculoskeletal Musculoskeletal: 1, strength equal bilaterally - Neurologic Neurologic: moves all extremities - Psychiatric Psychiatric: memory intact, appropriate mood/affect, intact judgment & insight - Labs CBC & Chem 7: 03/02/22 23:12 03/02/22 23:12 Labs: Abnormal lab results 03/10/22 Range/Units 06:12 POC Glucose 116 H (70-105) mg/dL
[2022-03-10] MEDS: ARFORMOTEROL 15 MCG/2 ML NEBU IH SCH ×2 (08:21→20:37)
[2022-03-10] MEDS: BUDESONIDE 0.5 MG/2 ML NEBU IH SCH ×2 (08:21→20:37)
[2022-03-10] MEDS: cloNIDine 0.1 MG TAB PO SCH (09:04)
[2022-03-10] MEDS: amLODIPine 10 MG TAB PO SCH (09:04)
[2022-03-10] MEDS: VALSARTAN 160MG TAB PO SCH ×2 (09:05→22:04)
[2022-03-10] MEDS: BENZTROPINE 0.5 MG TAB PO SCH ×2 (09:05→22:05)
[2022-03-10] MEDS: FAMOTIDINE 20 MG TAB PO SCH ×2 (09:06→22:05)
[2022-03-10] MEDS: SERTRALINE 50 MG TAB PO SCH (09:06)
[2022-03-10] MEDS: ASPIRIN EC 325 MG TAB PO SCH (09:06)
--- NOTE | 2022-03-10 09:43 | Progress Note ---
Subjective Date of service: 03/10/22 Principal diagnosis: Schizophrenia Subjective Comment: 03/10: The patient was seen today.He states he is doing well. He is calm and cooperative. The patient is focused on discharge. The patient denies any current suicidal/homicidal ideation and denies hallucinations. No changes made today. The patient is clear from psych point of view. 03/09: The patient was seen today. He is calm and cooperative. The patient is focused on discharge. The patient denies any current suicidal/homicidal ideation and denies hallucinations. No changes made today. The patient is clear from psych point of view. 03/08:The patient was seen today. He reports doing well. The patient is focused on discharge. The patient denies any current suicidal/homicidal ideation and denies hallucinations. No changes made today. 03/07: The patient was seen today. The patient presents in good spirits. He reports reports appetite as good but complain of having fractional sleep. The patient denies any current suicidal/homicidal ideation and denies hallucinations. Increase Melatonin to 10mg po QHS PRN. 03/06: The patient was seen today. He reports doing well. He reports sleep as fair. He is asking about transferring to [facility]. The patient denies any current suicidal/homicidal ideation and denies hallucinations. No changes made today. 03/05:The patient was seen today. He is calm and cooperative. He still verbalizes depression but states he feels much better. He denies SI/HI or hallucinations. He says his appetite is good but the food is not enough for him. He is asking for double portions. Will recommend this for the patient. The patient is awaiting rehab placement. REVIEW OF SYSTEMS Constitutional: Negative for weight loss ENT: Negative for stridor Respiratory: Negative for cough or hemoptysis All other systems reviewed and are negative MENTAL STATUS EXAMINATION General Appearance: Dressed appropriately, Behavior: calm and cooperative, odd Mood: good Affect and affective range: congruent with mood Thought Process: Goal directed Thought content:Reality oriented Speech: Normal Suicidal Ideation: Denies Homicidal Ideation: Denies Hallucinations: Denies Delusions: None Insight and Judgment:Limited insight and judgment Memory: Limited Attention: Distracted Orientation: Alert, oriented Assessment Schizophrenia Treatment Plan Patient admitted for inpatient psychiatric evaluation, medication adjustment and close monitoring The patient's behavior, mood, sleep and appetite will be closely monitored. Patient enrolled in individual and group therapeutic sessions and encouraged to attend. Patient provided with a safe and structured environment. Patient's physical health needs will be addressed by the Hospitalist. Hospitalist Consulted Labs including CBC, CMP, Lipid profile and Hemoglobin A1C levels ordered for baseline reference Social Assessment will be completed and the Tar Heater Operator will work with patient and family to ensure a suitable and safe disposition Medication adjustment will be made as clinically indicated Continue meds Usual Wellness Jain/Preservation: - Start Trazodone 50 mg po QHS & 50 mg po QHS PRN between 10 PM & 2 AM for insomnia - Start Melatonin 5 mg po QHS to promote circadian rhythm The patient agreed on the treatment plan, understood the risk, benefit, alternative treatment, potential consequence of no treatment, and gave informed consent. Estimated days: 3 Post hospital care: primary care provider, psychiatric provider Case staffed with Dr. Tavera Medications and Allergies Medications and Allergies Allergies Allergy/AdvReac Type Severity Reaction Status Date / Time No Known Allergies Allergy Verified 03/02/22 22:42 Home Medications Medication Instructions Recorded Confirmed Last Taken Type Amlodipine Besylate [Norvasc] 10 mg PO DAILY 02/23/22 03/02/22 Unknown History Acetaminophen [Tylenol] 650 mg PO Q6HR PRN 03/02/22 03/02/22 Unknown History Arformoterol Nebu [Brovana Nebu] 15 mcg IH Q12HR 03/02/22 03/02/22 Unknown History Aspirin EC [Ecotrin] 325 mg PO QDAY tablet 03/02/22 03/02/22 Unknown Rx AtorvaSTATin [Lipitor] 40 mg PO QHS tablet 03/02/22 03/02/22 Unknown Rx Budesonide [Pulmicort Respules] 0.5 mcg INHALATION Q12HR 03/02/22 03/02/22 Unknown History Famotidine [Pepcid] 20 mg PO BID #60 tablet 03/02/22 03/02/22 Unknown Rx Ipratropium/Albuterol Sulfate 1 ampul IH Q6HRT PRN ampul.neb 03/02/22 03/02/22 Unknown Rx [DUONEB *Not for PRN Use*] Nitroglycerin [Nitrostat] 0.4 mg SL Q5M PRN 03/02/22 03/02/22 Unknown History QUEtiapine [SEROquel] 150 mg PO QHS tablet 03/02/22 03/02/22 Unknown Rx Sertraline [Zoloft] 75 mg PO QDAY tablet 03/02/22 03/02/22 Unknown Rx Valsartan [Diovan] 160 mg PO BID tablet 03/02/22 03/02/22 Unknown Rx cloNIDine [Catapres] 0.1 mg PO DAILY 03/02/22 03/02/22 Unknown History hydrALAZINE [Apresoline TAB] 25 mg PO Q8HR #90 tab 03/02/22 03/02/22 Unknown Rx traMADoL [Ultram 50 MG tab] 50 mg PO Q6H PRN tablet 03/02/22 03/02/22 Unknown Rx traMADoL [Ultram 50 MG tab] 50 mg PO Q6HR PRN 03/02/22 03/02/22 Unknown History traZODone [Desyrel] 50 mg PO QHS PRN 03/02/22 03/02/22 Unknown History Active Meds: Active Medications Acetaminophen (Acetaminophen 325 Mg Tab) 650 mg PO Q6HR PRN PRN Reason: Pain, Moderate (4-6) Last Admin: 03/07/22 21:31 Dose: 650 mg Albuterol (Albuterol 2.5 Mg/3 Ml Nebu) 2.5 mg IH Q6HRT PRN PRN Reason: Bronchospasm Amlodipine Besylate (Amlodipine 10 Mg Tab) 10 mg PO DAILY [facility] Last Admin: 03/10/22 09:04 Dose: 10 mg Arformoterol Tartrate (Arformoterol 15 Mcg/2 Ml Nebu) 15 mcg IH Q12HRT [facility] Last Admin: 03/10/22 08:21 Dose: 15 mcg Aspirin (Aspirin Ec 325 Mg Tab) 325 mg PO QDAY [facility] Last Admin: 03/10/22 09:06 Dose: 325 mg Atorvastatin Calcium (Atorvastatin 40 Mg Tab) 40 mg PO QHS [facility] Last Admin: 03/09/22 21:01 Dose: 40 mg Benztropine Mesylate (Benztropine 0.5 Mg Tab) 0.5 mg PO BID [facility] Last Admin: 03/10/22 09:05 Dose: 0.5 mg Budesonide (Budesonide 0.5 Mg/2 Ml Nebu) 0.5 mg IH Q12HRT [facility] Last Admin: 03/10/22 08:21 Dose: 0.5 mg Clonidine HCl (Clonidine 0.1 Mg Tab) 0.1 mg PO DAILY [facility] Last Admin: 03/10/22 09:04 Dose: 0.1 mg Famotidine (Famotidine 20 Mg Tab) 20 mg PO BID [facility] Last Admin: 03/10/22 09:06 Dose: 20 mg Haloperidol Lactate (Haloperidol Lactate 5 Mg/1 Ml Inj) 5 mg IM Q6H PRN PRN Reason: Agitation Last Admin: 03/02/22 22:01 Dose: 5 mg Hydralazine HCl (Hydralazine 25 Mg Tab) 25 mg PO Q8HR [facility] Last Admin: 03/10/22 05:23 Dose: 25 mg Lorazepam (Lorazepam 2 Mg/Ml Vial) 1 mg IM Q6HR PRN PRN Reason: Agitation Last Admin: 03/02/22 22:01 Dose: 1 mg Melatonin (Melatonin 5 Mg Tab) 10 mg PO QHS PRN PRN Reason: Sleep Last Admin: 03/09/22 21:02 Dose: 10 mg Nitroglycerin (Nitroglycerin 0.4 Mg Tab Subl) 0.4 mg SL Q5M PRN PRN Reason: chest pain Quetiapine Fumarate (Quetiapine 100 Mg Tab) 150 mg PO QHS [facility] Last Admin: 03/09/22 21:00 Dose: 150 mg Sertraline HCl (Sertraline 50 Mg Tab) 75 mg PO QDAY [facility] Last Admin: 03/10/22 09:06 Dose: 75 mg Tramadol HCl (Tramadol 50 Mg Tab) 50 mg PO Q6HR PRN PRN Reason: Pain, Moderate (4-6) Last Admin: 03/07/22 15:42 Dose: 50 mg Trazodone HCl (Trazodone 50 Mg Tab) 50 mg PO QHS PRN PRN Reason: Insomnia Last Admin: 03/05/22 21:05 Dose: 50 mg Valsartan (Valsartan 160mg Tab) 160 mg PO BID [facility] Last Admin: 03/10/22 09:05 Dose: 160 mg Results - Results Labs/Vitals: Laboratory Last Values WBC 19.3 K/mm3 (4.5-11.0) H 03/02/22 23:12 RBC 5.69 M/mm3 (3.65-5.03) H 03/02/22 23:12 Hgb 13.4 gm/dl (11.8-15.2) 03/02/22 23:12 Hct 41.0 % (35.5-45.6) 03/02/22 23:12 MCV 72 fl (84-94) L 03/02/22 23:12 MCH 24 pg (28-32) L 03/02/22 23:12 MCHC 33 % (32-34) 03/02/22 23:12 RDW 19.5 % (13.2-15.2) H 03/02/22 23:12 Plt Count 251 K/mm3 (140-440) 03/02/22 23:12 Add Manual Diff Complete 03/02/22 23:12 Total Counted 100 03/02/22 23:12 Seg Neuts % (Manual) 80.0 % (40.0-70.0) H 03/02/22 23:12 Band Neutrophils % 0 % 03/02/22 23:12 Lymphocytes % (Manual) 18.0 % (13.4-35.0) 03/02/22 23:12 Reactive Lymphs % (Man) 0 % 03/02/22 23:12 Monocytes % (Manual) 2.0 % (0.0-7.3) 03/02/22 23:12 Eosinophils % (Manual) 0 % (0.0-4.3) 03/02/22 23:12 Basophils % (Manual) 0 % (0.0-1.8) 03/02/22 23:12 Metamyelocytes % 0 % 03/02/22 23:12 Myelocytes % 0 % 03/02/22 23:12 Promyelocytes % 0 % 03/02/22 23:12 Blast Cells % 0 % 03/02/22 23:12 Nucleated RBC % 1.0 % (0.0-0.9) H 03/02/22 23:12 Seg Neutrophils # Man 15.4 K/mm3 (1.8-7.7) H 03/02/22 23:12 Band Neutrophils # 0.0 K/mm3 03/02/22 23:12 Lymphocytes # (Manual) 3.5 K/mm3 (1.2-5.4) 03/02/22 23:12 Abs React Lymphs (Man) 0.0 K/mm3 03/02/22 23:12 Monocytes # (Manual) 0.4 K/mm3 (0.0-0.8) 03/02/22 23:12 Eosinophils # (Manual) 0.0 K/mm3 (0.0-0.4) 03/02/22 23:12 Basophils # (Manual) 0.0 K/mm3 (0.0-0.1) 03/02/22 23:12 Metamyelocytes # 0.0 K/mm3 03/02/22 23:12 Myelocytes # 0.0 K/mm3 03/02/22 23:12 Promyelocytes # 0.0 K/mm3 03/02/22 23:12 Blast Cells # 0.0 K/mm3 03/02/22 23:12 WBC Morphology Not Reportable 03/02/22 23:12 Hypersegmented Neuts Not Reportable 03/02/22 23:12 Hyposegmented Neuts Not Reportable 03/02/22 23:12 Hypogranular Neuts Not Reportable 03/02/22 23:12 Smudge Cells Not Reportable 03/02/22 23:12 Toxic Granulation Not Reportable 03/02/22 23:12 Toxic Vacuolation Not Reportable 03/02/22 23:12 Dohle Bodies Not Reportable 03/02/22 23:12 Pelger-Huet Anomaly Not Reportable 03/02/22 23:12 Betty Rods Not Reportable 03/02/22 23:12 Platelet Estimate Consistent w auto 03/02/22 23:12 Clumped Platelets Not Reportable 03/02/22 23:12 Plt Clumps, EDTA Not Reportable 03/02/22 23:12 Large Platelets Not Reportable 03/02/22 23:12 Giant Platelets Not Reportable 03/02/22 23:12 Platelet Satelliting Not Reportable 03/02/22 23:12 Plt Morphology Comment Not Reportable 03/02/22 23:12 RBC Morphology Not Reportable 03/02/22 23:12 Dimorphic RBCs Not Reportable 03/02/22 23:12 Polychromasia Not Reportable 03/02/22 23:12 Hypochromasia 1+ 03/02/22 23:12 Poikilocytosis Not Reportable 03/02/22 23:12 Anisocytosis 1+ 03/02/22 23:12 Microcytosis Not Reportable 03/02/22 23:12 Macrocytosis Not Reportable 03/02/22 23:12 Spherocytes Not Reportable 03/02/22 23:12 Pappenheimer Bodies Not Reportable 03/02/22 23:12 Sickle Cells Not Reportable 03/02/22 23:12 Target Cells Not Reportable 03/02/22 23:12 Tear Drop Cells Few 03/02/22 23:12 Ovalocytes Few 03/02/22 23:12 Helmet Cells Not Reportable 03/02/22 23:12 Oliveros-Gibbs Bodies Not Reportable 03/02/22 23:12 [place] Rings Not Reportable 03/02/22 23:12 Carole Cells Not Reportable 03/02/22 23:12 Bite Cells Not Reportable 03/02/22 23:12 Crenated Cell Not Reportable 03/02/22 23:12 Elliptocytes Not Reportable 03/02/22 23:12 Acanthocytes (Spur) Not Reportable 03/02/22 23:12 Rouleaux Not Reportable 03/02/22 23:12 Hemoglobin C Crystals Not Reportable 03/02/22 23:12 Schistocytes Not Reportable 03/02/22 23:12 Malaria parasites Not Reportable 03/02/22 23:12 [place] Bodies Not Reportable 03/02/22 23:12 Hem Pathologist Commnt No 03/02/22 23:12 Sodium 132 mmol/L (137-145) L 03/02/22 23:12 Potassium 4.3 mmol/L (3.6-5.0) 03/02/22 23:12 Chloride 96.3 mmol/L (98-107) L 03/02/22 23:12 Carbon Dioxide 21 mmol/L (22-30) L 03/02/22 23:12 Anion Gap 19 mmol/L 03/02/22 23:12 BUN 25 mg/dL (9-20) H 03/02/22 23:12 Creatinine 0.7 mg/dL (0.8-1.3) L 03/02/22 23:12 Estimated GFR > 60 ml/min 03/02/22 23:12 BUN/Creatinine Ratio 36 % 03/02/22 23:12 Glucose 162 mg/dL (75-100) H 03/02/22 23:12 POC Glucose 116 mg/dL (70-105) H 03/10/22 06:12 Hemoglobin A1c 7.0 % (4-6) H 03/02/22 23:12 Calcium 8.5 mg/dL (8.4-10.2) 03/02/22 23:12 Total Bilirubin 0.30 mg/dL (0.1-1.2) 03/02/22 23:12 AST 12 units/L (5-40) 03/02/22 23:12 ALT 21 units/L (7-56) 03/02/22 23:12 Alkaline Phosphatase 75 units/L (35-129) 03/02/22 23:12 Total Protein 6.1 g/dL (6.3-8.2) L 03/02/22 23:12 Albumin 3.7 g/dL (3.9-5) L 03/02/22 23:12 Albumin/Globulin Ratio 1.5 % 03/02/22 23:12 Triglycerides 175 mg/dL (2-149) H 03/02/22 23:12 Cholesterol 113 mg/dL (50-199) 03/02/22 23:12 LDL Cholesterol Direct 34 mg/dL (50-130) L 03/02/22 23:12 HDL Cholesterol 56 mg/dL (40-59) 03/02/22 23:12 Cholesterol/HDL Ratio 2.01 % 03/02/22 23:12 TSH 0.741 mlU/mL (0.270-4.200) 03/02/22 23:12 SARS-CoV-2 (PCR) Negative (Negative) 03/10/22 08:00 Last Vital Signs Temp 98.3 F 03/10/22 07:10 Pulse 78 03/10/22 09:05 Resp 17 03/10/22 08:20 BP 120/77 03/10/22 09:05 Pulse Ox 96 03/10/22 07:10
[2022-03-10 14:34] LABS: Alanine Aminotransferase 33 units/L (7-56); BUN/Creatinine Ratio 14; Blood Urea Nitrogen 11 mg/dL (9-20); Calcium 9.1 mg/dL (8.4-10.2); Hemolysis Index 20
[2022-03-10 14:44] LABS: Hematocrit 33.9 % (35.5-45.6); Hemoglobin 11.3 gm/dl (11.8-15.2); Mean Corpuscular HGB Conc 33 % (32-34); Mean Corpuscular Volume 73 fl (84-94); Red Blood Count 4.64 M/mm3 (3.65-5.03)
[2022-03-10 14:48] LABS: Red Cell Distribution Width 20.3 % (13.2-15.2)
[2022-03-10 14:58] LABS: Platelet Count 83 K/mm3 (140-440)
[2022-03-10 14:59] LABS: Eosinophils % (Auto) 1.1 % (0.0-4.3); Lymphocytes % (Auto) 18.6 % (13.4-35.0); Monocytes % (Auto) 6.9 % (0.0-7.3)
[2022-03-10 15:00] LABS: Basophils % (Auto) 0.9 % (0.0-1.8); Lymphocytes # (Auto) 2.2 K/mm3 (1.2-5.4)
[2022-03-10 15:01] LABS: Basophils # (Auto) 0.1 K/mm3 (0.0-0.1); Eosinophils # (Auto) 0.1 K/mm3 (0.0-0.4); Monocytes # (Auto) 0.8 K/mm3 (0.0-0.8)
[2022-03-10] MEDS: MELATONIN 5 MG TAB PO PRN (22:04)
[2022-03-10] MEDS: QUEtiapine 100 MG TAB PO SCH (22:05)
[2022-03-11] MEDS: hydrALAZINE 25 MG TAB PO SCH ×2 (06:30→13:33)
[2022-03-11 06:31] VITALS: BP 116/79
--- NOTE | 2022-03-11 07:54 | Progress Note ---
Assessment and Plan - Patient Problems (1) ARTHUR (generalized anxiety disorder) Current Visit: Yes Status: Acute Plan to address problem: Benzodiazepine therapy as clinically indicated, supportive care. (2) MDD (major depressive disorder) Current Visit: Yes Status: Acute Qualifiers: Major depression episode severity: unspecified Plan to address problem: Continue medical management, cognitive behavioral therapy. Supportive care. (3) HTN (hypertension) Status: Acute Qualifiers: Hypertension type: primary hypertension Qualified Code(s): I10 - Essential (primary) hypertension Plan to address problem: Monitor blood pressure every shift, continue medical management. (4) COPD (chronic obstructive pulmonary disease) Current Visit: Yes Status: Acute Plan to address problem: Supportive care. No acute exacerbation at this time. (5) GERD (gastroesophageal reflux disease) Current Visit: Yes Status: Acute Qualifiers: Esophagitis presence: without esophagitis Qualified Code(s): K21.9 - Gastro-esophageal reflux disease without esophagitis Plan to address problem: PPI therapy, supportive care. (6) Advance care planning Current Visit: Yes Status: Acute Plan to address problem: Disease education conducted, care plan discussed, diagnoses discussed, prognosis discussed, patient is full code. Patient knowledges understanding and agreement with care plan, +30 minutes. (7) Preventative health care Current Visit: Yes Status: Acute Plan to address problem: Patient counseled regarding balanced diet, increase physical activity at discharge, risk factor reduction, low-sodium diet. Patient advised to follow-up with primary care physician for all age and risk factor appropriate screening tests. Subjective Date of service: 03/10/22 Principal diagnosis: Schizophrenia Interval history: History Interval history: 46 YO Male with Obesity, HTN, COPD, GERD, MDD, ARTHUR. Pt is admitted to [facility] for psychiatric stabilization. Consult placed by Dr. Rodríguez for medical management. Patient seen and evaluated in the recreation room. Patient exhibits tangential thinking with diminished cognition. No reported nursing events. Objective - Constitutional Vitals: Vital Signs - 12hr 03/10/22 03/10/22 03/11/22 20:37 21:09 06:30 Temperature 98.7 F Pulse Rate 75 84 Pulse Rate [ 80 Anterior] Pulse Rate [ 81 Posterior] Respiratory 18 Rate Respiratory 16 Rate [Anterior] Respiratory 16 Rate [Posterior ] Blood Pressure 116/79 Blood Pressure 123/74 [Right] O2 Sat by Pulse 96 Oximetry General appearance: Present: no acute distress, well-nourished - EENT Eyes: PERRL, EOM intact ENT: hearing intact, clear oral mucosa Ears: bilateral: normal - Neck Neck: supple, normal ROM - Respiratory Respiratory effort: normal Respiratory: bilateral: CTA - Breasts Breasts: normal - Cardiovascular Rhythm: regular Heart Sounds: Present: S1 & S2. Absent: gallop, rub Extremities: pulses intact, No edema, normal color, Full ROM - Gastrointestinal General gastrointestinal: Present: soft, non-tender, non-distended, normal bowel sounds - Genitourinary Male genitourinary: normal - Integumentary Integumentary: clear, warm, dry - Musculoskeletal Musculoskeletal: 1, strength equal bilaterally - Neurologic Neurologic: moves all extremities - Psychiatric Psychiatric: memory intact, appropriate mood/affect, intact judgment & insight - Labs CBC & Chem 7: 03/10/22 13:53 03/10/22 13:53 Labs: Abnormal lab results 03/10/22 03/10/22 03/11/22 Range/Units 13:53 13:53 07:40 WBC 11.6 H (4.5-11.0) K/mm3 Hgb 11.3 L (11.8-15.2) gm/dl Hct 33.9 L (35.5-45.6) % MCV 73 L (84-94) fl MCH 24 L (28-32) pg RDW 20.3 H (13.2-15.2) % Plt Count 83 L (140-440) K/mm3 Seg Neutrophils % 72.5 H (40.0-70.0) % Seg Neutrophils # 8.4 H (1.8-7.7) K/mm3 Glucose 151 H (75-100) mg/dL POC Glucose 129 H (70-105) mg/dL
[2022-03-11 09:03] LABS: Bilirubin,Urine NEG (Negative); Blood,Urine NEG (Negative); Color,Urine Yellow (Yellow); RBC,Urine < 1.0 /HPF (0.0-6.0)
[2022-03-11 09:09] LABS: WBC,Urine < 1.0 /HPF (0.0-6.0)
[2022-03-11] MEDS: BENZTROPINE 0.5 MG TAB PO SCH (09:20)
[2022-03-11] MEDS: SERTRALINE 50 MG TAB PO SCH (09:20)
[2022-03-11] MEDS: cloNIDine 0.1 MG TAB PO SCH (09:21)
[2022-03-11] MEDS: FAMOTIDINE 20 MG TAB PO SCH (09:21)
[2022-03-11] MEDS: ASPIRIN EC 325 MG TAB PO SCH (09:22)
[2022-03-11] MEDS: BUDESONIDE 0.5 MG/2 ML NEBU IH SCH (10:00)
[2022-03-11] MEDS: ARFORMOTEROL 15 MCG/2 ML NEBU IH SCH (10:00)
--- NOTE | 2022-03-11 10:06 | Discharge Summary ---
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 The patients mood, cognition, behavior, motivation, compliance to treatment and appreciation on family/social support are improved and stabilized. At the time of discharge, the patient had no suicidal ideas, no homicidal ideas, no aggressive thoughts, no endangering behavior and no debilitating adverse effects. The patient agreed on the treatment plan, understood the risk, benefit, alternative treatment, potential consequence of no treatment, and gave informed consent. Progress Note: 03/10: The patient was seen today.He states he is doing well. He is calm and cooperative. The patient is focused on discharge. The patient denies any current suicidal/homicidal ideation and denies hallucinations. No changes made today. The patient is clear from psych point of view. 03/09: The patient was seen today. He is calm and cooperative. The patient is focused on discharge. The patient denies any current suicidal/homicidal ideation and denies hallucinations. No changes made today. The patient is clear from psych point of view. 03/08:The patient was seen today. He reports doing well. The patient is focused on discharge. The patient denies any current suicidal/homicidal ideation and denies hallucinations. No changes made today. 03/07: The patient was seen today. The patient presents in good spirits. He reports reports appetite as good but complain of having fractional sleep. The patient denies any current suicidal/homicidal ideation and denies hallucinations. Increase Melatonin to 10mg po QHS PRN. 03/06: The patient was seen today. He reports doing well. He reports sleep as fair. He is asking about transferring to [facility]. The patient denies any current suicidal/homicidal ideation and denies hallucinations. No changes made today. 03/05:The patient was seen today. He is calm and cooperative. He still verbalizes depression but states he feels much better. He denies SI/HI or hallucinations. He says his appetite is good but the food is not enough for him. He is asking for double portions. Will recommend this for the patient. The patient is awaiting rehab placement. Disposition: 03 [facility] Allergies/Adverse Reactions: Allergies No Known Allergies Allergy (Verified 03/02/22 22:42) Vital Signs: Last Vital Signs Temp 98.7 F 03/10/22 21:09 Pulse 84 03/11/22 06:30 Resp 18 03/10/22 21:09 BP 116/79 03/11/22 06:30 Pulse Ox 96 03/10/22 21:09 Last Lab: Laboratory Last Values WBC 11.6 K/mm3 (4.5-11.0) H 03/10/22 13:53 RBC 4.64 M/mm3 (3.65-5.03) 03/10/22 13:53 Hgb 11.3 gm/dl (11.8-15.2) L 03/10/22 13:53 Hct 33.9 % (35.5-45.6) L 03/10/22 13:53 MCV 73 fl (84-94) L 03/10/22 13:53 MCH 24 pg (28-32) L 03/10/22 13:53 MCHC 33 % (32-34) 03/10/22 13:53 RDW 20.3 % (13.2-15.2) H 03/10/22 13:53 Plt Count 83 K/mm3 (140-440) L 03/10/22 13:53 Lymph % (Auto) 18.6 % (13.4-35.0) 03/10/22 13:53 Kimble % (Auto) 6.9 % (0.0-7.3) 03/10/22 13:53 Eos % (Auto) 1.1 % (0.0-4.3) 03/10/22 13:53 Baso % (Auto) 0.9 % (0.0-1.8) 03/10/22 13:53 Lymph # (Auto) 2.2 K/mm3 (1.2-5.4) 03/10/22 13:53 Kimble # (Auto) 0.8 K/mm3 (0.0-0.8) 03/10/22 13:53 Eos # (Auto) 0.1 K/mm3 (0.0-0.4) 03/10/22 13:53 Baso # (Auto) 0.1 K/mm3 (0.0-0.1) 03/10/22 13:53 Add Manual Diff Complete 03/02/22 23:12 Total Counted 100 03/02/22 23:12 Seg Neutrophils % 72.5 % (40.0-70.0) H 03/10/22 13:53 Seg Neuts % (Manual) 80.0 % (40.0-70.0) H 03/02/22 23:12 Band Neutrophils % 0 % 03/02/22 23:12 Lymphocytes % (Manual) 18.0 % (13.4-35.0) 03/02/22 23:12 Reactive Lymphs % (Man) 0 % 03/02/22 23:12 Monocytes % (Manual) 2.0 % (0.0-7.3) 03/02/22 23:12 Eosinophils % (Manual) 0 % (0.0-4.3) 03/02/22 23:12 Basophils % (Manual) 0 % (0.0-1.8) 03/02/22 23:12 Metamyelocytes % 0 % 03/02/22 23:12 Myelocytes % 0 % 03/02/22 23:12 Promyelocytes % 0 % 03/02/22 23:12 Blast Cells % 0 % 03/02/22 23:12 Nucleated RBC % 1.0 % (0.0-0.9) H 03/02/22 23:12 Seg Neutrophils # 8.4 K/mm3 (1.8-7.7) H 03/10/22 13:53 Seg Neutrophils # Man 15.4 K/mm3 (1.8-7.7) H 03/02/22 23:12 Band Neutrophils # 0.0 K/mm3 03/02/22 23:12 Lymphocytes # (Manual) 3.5 K/mm3 (1.2-5.4) 03/02/22 23:12 Abs React Lymphs (Man) 0.0 K/mm3 03/02/22 23:12 Monocytes # (Manual) 0.4 K/mm3 (0.0-0.8) 03/02/22 23:12 Eosinophils # (Manual) 0.0 K/mm3 (0.0-0.4) 03/02/22 23:12 Basophils # (Manual) 0.0 K/mm3 (0.0-0.1) 03/02/22 23:12 Metamyelocytes # 0.0 K/mm3 03/02/22 23:12 Myelocytes # 0.0 K/mm3 03/02/22 23:12 Promyelocytes # 0.0 K/mm3 03/02/22 23:12 Blast Cells # 0.0 K/mm3 03/02/22 23:12 WBC Morphology Not Reportable 03/02/22 23:12 Hypersegmented Neuts Not Reportable 03/02/22 23:12 Hyposegmented Neuts Not Reportable 03/02/22 23:12 Hypogranular Neuts Not Reportable 03/02/22 23:12 Smudge Cells Not Reportable 03/02/22 23:12 Toxic Granulation Not Reportable 03/02/22 23:12 Toxic Vacuolation Not Reportable 03/02/22 23:12 Dohle Bodies Not Reportable 03/02/22 23:12 Pelger-Huet Anomaly Not Reportable 03/02/22 23:12 Betty Rods Not Reportable 03/02/22 23:12 Platelet Estimate Consistent w auto 03/02/22 23:12 Clumped Platelets Not Reportable 03/02/22 23:12 Plt Clumps, EDTA Not Reportable 03/02/22 23:12 Large Platelets Not Reportable 03/02/22 23:12 Giant Platelets Not Reportable 03/02/22 23:12 Platelet Satelliting Not Reportable 03/02/22 23:12 Plt Morphology Comment Not Reportable 03/02/22 23:12 RBC Morphology Not Reportable 03/02/22 23:12 Dimorphic RBCs Not Reportable 03/02/22 23:12 Polychromasia Not Reportable 03/02/22 23:12 Hypochromasia 1+ 03/02/22 23:12 Poikilocytosis Not Reportable 03/02/22 23:12 Anisocytosis 1+ 03/02/22 23:12 Microcytosis Not Reportable 03/02/22 23:12 Macrocytosis Not Reportable 03/02/22 23:12 Spherocytes Not Reportable 03/02/22 23:12 Pappenheimer Bodies Not Reportable 03/02/22 23:12 Sickle Cells Not Reportable 03/02/22 23:12 Target Cells Not Reportable 03/02/22 23:12 Tear Drop Cells Few 03/02/22 23:12 Ovalocytes Few 03/02/22 23:12 Helmet Cells Not Reportable 03/02/22 23:12 [place] Bodies Not Reportable 03/02/22 23:12 Barton Rings Not Reportable 03/02/22 23:12 [place] Cells Not Reportable 03/02/22 23:12 Bite Cells Not Reportable 03/02/22 23:12 Crenated Cell Not Reportable 03/02/22 23:12 Elliptocytes Not Reportable 03/02/22 23:12 Acanthocytes (Spur) Not Reportable 03/02/22 23:12 Rouleaux Not Reportable 03/02/22 23:12 Hemoglobin C Crystals Not Reportable 03/02/22 23:12 Schistocytes Not Reportable 03/02/22 23:12 Malaria parasites Not Reportable 03/02/22 23:12 [place] Bodies Not Reportable 03/02/22 23:12 Hem Pathologist Commnt No 03/02/22 23:12 Sodium 138 mmol/L (137-145) 03/10/22 13:53 Potassium 4.2 mmol/L (3.6-5.0) 03/10/22 13:53 Chloride 103.0 mmol/L (98-107) 03/10/22 13:53 Carbon Dioxide 24 mmol/L (22-30) 03/10/22 13:53 Anion Gap 15 mmol/L 03/10/22 13:53 BUN 11 mg/dL (9-20) 03/10/22 13:53 Creatinine 0.8 mg/dL (0.8-1.3) 03/10/22 13:53 Estimated GFR > 60 ml/min 03/10/22 13:53 BUN/Creatinine Ratio 14 % 03/10/22 13:53 Glucose 151 mg/dL (75-100) H 03/10/22 13:53 POC Glucose 129 mg/dL (70-105) H 03/11/22 07:40 Hemoglobin A1c 7.0 % (4-6) H 03/02/22 23:12 Calcium 9.1 mg/dL (8.4-10.2) 03/10/22 13:53 Total Bilirubin 0.30 mg/dL (0.1-1.2) 03/10/22 13:53 AST 16 units/L (5-40) 03/10/22 13:53 ALT 33 units/L (7-56) 03/10/22 13:53 Alkaline Phosphatase 97 units/L (35-129) 03/10/22 13:53 Total Protein 7.2 g/dL (6.3-8.2) 03/10/22 13:53 Albumin 4.0 g/dL (3.9-5) 03/10/22 13:53 Albumin/Globulin Ratio 1.3 % 03/10/22 13:53 Triglycerides 175 mg/dL (2-149) H 03/02/22 23:12 Cholesterol 113 mg/dL (50-199) 03/02/22 23:12 LDL Cholesterol Direct 34 mg/dL (50-130) L 03/02/22 23:12 HDL Cholesterol 56 mg/dL (40-59) 03/02/22 23:12 Cholesterol/HDL Ratio 2.01 % 03/02/22 23:12 TSH 0.741 mlU/mL (0.270-4.200) 03/02/22 23:12 Urine Color Yellow (Yellow) 03/11/22 Unknown Urine Turbidity Clear (Clear) 03/11/22 Unknown Urine pH 5.0 (5.0-7.0) 03/11/22 Unknown Ur Specific [place] 1.026 (1.003-1.030) 03/11/22 Unknown Urine Protein 30 mg/dl mg/dL (Negative) 03/11/22 Unknown Urine Glucose (UA) Neg mg/dL (Negative) 03/11/22 Unknown Urine Ketones Neg mg/dL (Negative) 03/11/22 Unknown Urine Blood Neg (Negative) 03/11/22 Unknown Urine Nitrite Neg (Negative) 03/11/22 Unknown Urine Bilirubin Neg (Negative) 03/11/22 Unknown Urine Urobilinogen 2.0 mg/dL (<2.0) 03/11/22 Unknown Ur Leukocyte Esterase Neg (Negative) 03/11/22 Unknown Urine WBC (Auto) < 1.0 /HPF (0.0-6.0) 03/11/22 Unknown Urine RBC (Auto) < 1.0 /HPF (0.0-6.0) 03/11/22 Unknown SARS-CoV-2 (PCR) Negative (Negative) 03/10/22 08:00 Core Measure Documentation - Palliative Care Palliative Care/ Comfort Measures: Not Applicable - Core Measures Any of the following diagnoses?: none - VTE Discharge Requirements Deep Vein Thrombosis/Pulmonary Embolism Present on Admission: No Exam - Constitutional Vitals: Temp Pulse Resp BP Pulse Ox 98.7 F 84 18 116/79 96 03/10/22 21:09 03/11/22 06:30 03/10/22 21:09 03/11/22 06:30 03/10/22 21:09 Plan Activity: advance as tolerated Weight Bearing Status: Weight Bear as Tolerated Care Plan Goals: Maintain good and stable mental health. Plan of Treatment: The patient should be compliant with medications, not to use drugs and not to drink alcohol.The patient understands that if suicidal ideas, homicidal ideas, or any endangering thoughts/behavior arise, they should immediately seek for emergent assistance including but not limited to crisis hot line and emergency room. Follow up with outpatient Psychiatrist and PCP within 7 - 14 days of discharge. Follow up with: ADRIANA SCHWARTZ MD [Primary Care Provider] - 7 Days Prescriptions: traZODone [Desyrel] 50 mg PO QHS PRN 30 Days #30 tablet PRN Reason: Insomnia QUEtiapine [SEROquel] 150 mg PO QHS 30 Days #45 tablet Benztropine [Cogentin] 0.5 mg PO BID 30 Days #60 tablet Sertraline [Zoloft] 75 mg PO QDAY 30 Days #30 tablet
[2022-03-11] MEDS: VALSARTAN 160MG TAB PO SCH (11:58)
[2022-03-11] MEDS: amLODIPine 10 MG TAB PO SCH (11:59)
== END 2022-03-11 15:40 | DRG 885 ==
LOC: UNDOADMIN 17:52 → 3A 17:52 → 5A 20:02
PROVIDERS: ADMIT Psychiatry & Neurology Psychiatry; ATTEND Psychiatry & Neurology Psychiatry
DX: F20.9 Schizophrenia, unspecified (principal); R45.851 Suicidal ideations; F41.1 Generalized anxiety disorder; F32.A Depression, unspecified; Z20.822 Contact with and (suspected) exposure to COVID-19; E66.9 Obesity, unspecified; I10 Essential (primary) hypertension; K21.9 Gastro-esophageal reflux disease without esophagitis; I25.10 Atherosclerotic heart disease of native coronary artery without angina pectoris; Z79.899 Other long term (current) drug therapy; Z59.00 Homelessness unspecified; Z56.0 Unemployment, unspecified; Z82.49 Family history of ischemic heart disease and other diseases of the circulatory system; Z68.36 Body mass index [BMI] 36.0-36.9, adult
CPT/HCPCS: 36415; 71045; 80053; 80061; 81001; 82962; 83036; 84443; 85007; 85025; 94640; G0378; J1630; J2060; U0003